=== PATIENT | male | born 1980 | race Caucasian/White ===

== ENCOUNTER 2017-10-07 01:12 | Emergency (ER) | payer SELFPAY ==
[~2017-10-07] VITALS: Ht 193 cm; Wt 95.4 kg
[2017-10-07 01:12] VITALS: Ht 193 cm; Wt 95.4 kg
--- NOTE | 2017-10-07 01:56 | EMERGENCY ROOM VISIT NOTE ---
History First contact with patient: 01:07 Chief Complaint: ALCOHOL OVERDOSE Stated Complaint: ALCOHOL OVERDOSE Nursing Triage Summary: Pt arrived via [facility] from [facility] outside of [facility]. Per EMS, pt found attempting to get into stranger's car by PD. EMS called and pt admitted to drinking approximately 6 mixed drinks. Denies drug use. Denies trauma. 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 Denies having any friends that could pick him up. History of Present Illness The patient is a 37 year old male who presents to the Emergency Room via S for evaluation of alcohol overdose. History is obtained both from the patient and EMS. [facility]. The patient admits to drinking 6 mixed drinks tonight. He denies any drug use or trauma. 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 He denies any complaints at this time. He denies medical problems. Review of Systems A complete 10 point review of systems was reviewed with the patient with pertinent positives and negatives as per history of present illness. All else were negative. Past Medical/Surgical History Medical Problems: (1) No significant active problems Social History Smoking Status: Light Tobacco Smoker Alcohol Use: occasionally Housing Status: lives alone Occupation Status: [employer] student Current/Historical Medications No Active Prescriptions or Reported Meds Physical Exam Vital Signs Date Time Temp Pulse Resp B/P (MAP) Pulse Ox O2 Delivery O2 Flow Rate FiO2 10/07/17 09:21 36.7 96 14 138/62 96 10/07/17 09:01 138/62 10/07/17 08:36 96 14 96 10/07/17 08:31 118/72 10/07/17 08:06 92 16 96 10/07/17 08:01 108/65 10/07/17 07:36 95 17 96 10/07/17 07:31 119/70 10/07/17 07:06 100 16 97 10/07/17 07:01 137/80 10/07/17 06:36 100 11 96 10/07/17 06:31 112/62 10/07/17 06:21 95 14 96 10/07/17 06:16 92 13 96 10/07/17 06:02 94 10/07/17 06:01 103/60 10/07/17 05:46 93 16 95 10/07/17 05:41 92 16 95 10/07/17 05:31 95/57 10/07/17 05:17 110/66 10/07/17 05:11 94 17 95 10/07/17 04:41 112 18 96 10/07/17 04:36 110 19 95 10/07/17 04:31 92/60 10/07/17 04:27 103 17 95 10/07/17 04:01 90/54 10/07/17 03:57 98 16 94 10/07/17 03:52 100/53 10/07/17 03:47 99 16 93 10/07/17 03:17 103 16 94 10/07/17 03:01 119/60 10/07/17 02:47 104 17 87 10/07/17 02:42 108 22 115/62 95 10/07/17 02:32 10/07/17 02:21 97 Room Air 10/07/17 02:19 157 10/07/17 02:15 183/82 10/07/17 01:12 36.7 135 16 153/94 100 Room Air Physical Exam VITALS: Vitals are noted on the nurse's note and reviewed by myself. Vital signs stable. GENERAL: This is a 37-year-old male, sitting up in bed, appears to be visibly intoxicated, smells of ETOH. SKIN: The skin was without erythema, edema, or bruising. HEAD: Normocephalic atraumatic. EARS: External auditory canals clear. No hemotympanum. EYES: Pupils equal round and reactive to light and accommodation. NOSE: No deformities noted. MOUTH: No loose or chipped teeth. NECK: No cervical spine tenderness. HEART: Regular rate and rhythm without murmurs gallops or rubs. LUNGS: Clear to auscultation bilaterally without wheezes, rales or rhonchi. ABDOMEN: Soft, nontender. MUSCULOSKELETAL: Full range of motion throughout. Strength intact throughout. NEURO: Patient was alert and oriented to person place and time. Speech slurred. Gross sensation intact. Patient cooperative with examiner. Medical Decision & Procedures Laboratory Results 10/07/17 01:34 Test 10/07/17 01:34 Anion Gap 6.0 mmol/L (3-11) Est Creatinine Clear Calc Drug Dose 105.4 ml/min Estimated GFR () 90.3 Estimated GFR (Non- 77.9 BUN/Creatinine Ratio 12.7 (10-20) Calcium Level 9.1 mg/dl (8.5-10.1) Ethyl Alcohol mg/dL 328.0 mg/dl (0-3) Medications Administered Medications (Trade) Dose Ordered Sig/Gavino Route Start Time Stop Time Status Last Admin Dose Admin Haloperidol Lactate (Haldol Inj) 10 mg NOW STAT IM 10/07/17 02:16 10/07/17 02:18 DC 10/07/17 02:27 10 MG Lorazepam (Ativan Inj) 2 mg NOW STAT IM 10/07/17 02:16 10/07/17 02:18 DC 10/07/17 02:27 2 MG ED Course The patient was evaluated as above. Labs were drawn. The patient initially was alert and cooperative. He was allowed to sit up in bed. The patient then started escalating his behavior. He was changed into a diaper and pronated on the bed. I was alerted by nursing staff that the patient was harassing one of the nurses. Security was called to the room. I evaluated the patient at this time. He is screaming repeatedly and thrashing around in the bed. Verbal deescalation was unsuccessful. I became concerned that the patient could cause harm to himself or staff. 10 mg Haldol and 2 mg Ativan IM were ordered. The patient was placed in leather restraints for safety of himself and nursing staff. Medical Decision Differential diagnosis includes alcohol intoxication, drug use, infection, hypoglycemia, head trauma, among others. The patient is a 37-year-old male who presents today for evaluation of probable alcohol intoxication. Labs revealed an alcohol of 328. Kidney function was found to be within normal limits. Labs were otherwise unremarkable. There is no evidence of head trauma or infection on exam. Clinically the patient is significantly intoxicated. He initially was cooperative, however his behavior quickly escalated. He was shouting inappropriate things at staff and was uncooperative. Please see nursing documentation regarding specific behavior. There was concern for safety of the patient and staff, prompting chemical and physical restraints. The patient was monitored closely for several hours. When he was awake and more sober, he was discharged home with a sober friend. Medication Reconcilliation Current Medication List: was personally reviewed by me Blood Pressure Screening Patient's blood pressure: Normal blood pressure Impression Primary Impression: Alcoholic intoxication Critical Care I have personally spent greater than 35 minutes of critical care time in the direct management of this patient. This includes bedside care, interpretation of diagnostic studies, and testing, discussion with consultants, patient, and family members, and other required patient management activities. This 35 minutes is in excess of all separately billable procedures. Departure Information Dispostion Home / Self-Care Condition GOOD Prescriptions No Active Prescriptions or Reported Meds Referrals No Doctor, Assigned (PCP) Patient Instructions My [facility] Additional Instructions You were evaluated in emergency department for intoxication. You had a blood alcohol level that was significantly elevated. Over the next 24 hours keep well hydrated and eat light meals. Don't drink any more alcohol. If the Police were involved you may be cited for public intoxication. Please contact either [facility] Police or the [employer] Police for further information. As with any visit to the emergency department, you should follow up with your primary care provider or [facility] for reevaluation. Call 911 or return to Emergency Department if you develop: Passing out, difficulty breathing, many episodes of vomiting, blood in vomit or stool, abdominal pain, fevers, or other severe symptoms. We are always here to help if you feel you need further evaluation or treatment. Problem Qualifiers Primary Impression: Alcoholic intoxication Complication of substance-induced condition: uncomplicated Qualified Codes: F10.920 - Alcohol use, unspecified with intoxication, uncomplicated
[2017-10-07 02:08] LABS: CALCIUM 9.1 mg/dl (8.5-10.1); CREATININE 1.2 mg/dl (0.60-1.40)
[2017-10-07] MEDS ORDERED: LORAZEPAM 2 MG/ML 1 ML VIAL IM STA (02:16)
[2017-10-07] MEDS ORDERED: HALOPERIDOL LACTATE 5 MG/ML 1 ML VIAL IM STA (02:16)
[2017-10-07] MEDS ORDERED: LORAZEPAM 2 MG/ML 1 ML VIAL ONE (02:16)
[2017-10-07] MEDS ORDERED: HALOPERIDOL LACTATE 5 MG/ML 1 ML VIAL ONE (02:17)
[2017-10-07 02:21] VITALS: O2SAT 97
[2017-10-07 09:21] VITALS: BP 138/62; PULSE 96; TEMP 36.7; O2SAT 96
== END 2017-10-07 09:23 | disposition home or self-care (01) ==
LOC: EDBD 01:12 → C.EDB 01:15
DX: F10.920 Alcohol use, unspecified with intoxication, uncomplicated (principal); Y90.8 Blood alcohol level of 240 mg/100 ml or more; F17.200 Nicotine dependence, unspecified, uncomplicated

== ENCOUNTER 2020-11-26 17:15 | Inpatient (IN) ==
[2020-11-26 18:05] LABS: Appearance Urine Clear (Clear); Bacteria Urine Automated Negative (Negative); Bilirubin Urine Negative (Negative); Blood Urine Negative (Negative); Cast Urine Automated 0 /lpf (0-5); Color Urine Yellow; Epithelial Cell Urine Auto 0-5 /lpf (0-5); Glucose Urine UA Negative (Negative); Ketones Urine Negative (Negative); Leukocyte Esterase Urine Trace (Negative); Nitrite Urine Negative (Negative); Protein Urine Negative (Negative); RBC Urine Automated 0-4 /hpf (0-4); Urobilinogen Urine Negative (Negative)
[2020-11-26 18:07] LABS: Amphetamines+Metham, Urine Neg (Neg); Barbiturates, Urine Neg (Neg); Benzodiazepine, Urine Neg (Neg); Cocaine, Urine Neg (Neg); MDMA (Ecstacy), Urine Neg (Neg); Methadone, Urine Neg (Neg); Opiate, Urine Neg (Neg); Phencyclidine, Urine Neg (Neg)
[2020-11-26 18:11] LABS: Basophils # (auto) 0.02 K/uL (0-0.2); Basophils % (auto) 0.4 %; Eosinophils # (auto) 0.01 K/uL (0-0.5); Eosinophils % (auto) 0.2 %; Hematocrit (blood only) 44.3 % (42-52); Hemoglobin 16.1 g/dL (14.0-18.0); Lymphocytes # (auto) 2.29 K/uL (1.2-3.4); Lymphocytes % (auto) 40.9 %; Mean Corpuscular Hemoglobin 29.8 pg (25-34); Mean Corpuscular Hgb Conc 36.3 g/dL (32-36); Mean Corpuscular Volume 81.9 fL (80-100); Mean Platelet Volume 8.9 fL (7.4-10.4); Monocytes % (auto) 10.7 %; Neutrophils # (auto) 2.68 K/uL (1.4-6.5); Neutrophils % (auto) 47.8 %; Platelet Count 167 K/uL (130-400); RDW Coefficient of Variation 13.4 % (11.5-14.5); RDW Standard Deviation 39.6 fL (36.4-46.3); Red Blood Count 5.41 M/uL (4.7-6.1)
[2020-11-26 18:29] LABS: Acetaminophen < 2 ug/ml (10-30); Albumin Level 4.1 gm/dl (3.4-5.0); BUN Creatinine Ratio 8.4 (10-20); Calcium 8.3 mg/dl (8.5-10.1); Creatinine Clr Calc Pharmacy 114.5 ml/min; Potassium 3.7 mmol/L (3.5-5.1); Salicylate < 1.7 mg/dl (2.8-20)
[2020-11-26 18:40] LABS: Albumin Globulin Ratio 1.3 (0.9-2); Bilirubin,Total 0.6 mg/dl (0.2-1); Globulin 3.2 gm/dl (2.5-4.0); Thyroid Stimulating Hormone 1.14 uIu/ml (0.300-4.500); Total Protein 7.3 gm/dl (6.4-8.2)
[2020-11-26] MEDS ORDERED: MULTI-VITAMIN INFUSION 10 ML, THIAMINE HCL 100 MG, FOLIC ACID 1 MG in SODIUM CHLORIDE 0... IV ONE (18:41)
[2020-11-26] MEDS ORDERED: LORazepam 2 MG/4 ML VIAL IV STA (18:41)
[2020-11-26] MEDS ORDERED: ONDANSETRON INJ 2 MG/ML 2 ML VIAL IV STA (18:43)
[2020-11-26] MEDS ORDERED: FAMOTIDINE 20MG IV PUSH 20 MG/5 ML SYR IV STA (18:43)
[2020-11-26 18:51] LABS: Magnesium 2.5 mg/dl (1.8-2.4)
[2020-11-26 20:20] LABS: Influenza A virus by PCR Negative (Neg); Influenza B virus by PCR Negative (Neg); RSV by PCR Negative (Neg); SARS CoV2 RNA(COVID-19) InHosp NEGATIVE (Negative)
[2020-11-26 22:00] LABS: Uric Acid 7.6 mg/dl (2.6-7.2)
--- NOTE | 2020-11-26 22:17 | Emergency Department Note ---
Impression & Plan Suicidal ideation, Alcohol intoxication, Elevated uric acid in blood, Gout of right ankle ED Provider Note NAME: JENNI CHOW AGE: 40 SEX: M ARRIVES VIA: Ambulance INFORMANT: Patient, ED PROVIDER(S): Nas Galan MD CHIEF COMPLAINT: Suicidal ideation, alcohol intoxication. PLAN: Disposition: MEDICAL DECISION MAKING: The patient is a 40-year-old gentleman with a past medical history of anxiety, depression, alcohol abuse/dependence who presents to the emergency department for evaluation of suicidal ideation after he presents to the [facility] attempting to be admitted for increased thoughts of SI with plan to "cut his jugular" because he knows that would be the quick way to . He reports to us that he presents to the [facility] for admission voluntarily after his girlfriend urged him to do so however upon case management discussing with the girlfriend she reports that he told her that he wanted to go there because of his worsening suicidal ideation. Patient reports he drinks a liter of vodka daily and does have a history of alcohol withdrawal. He reports he last drank yesterday evening. He reports he is will to be admitted voluntarily for suicidal ideation and acknowledges he needs some help because if he does not get help he will . On arrival the patient is anxious appearing with mild restlessness without any overt tremors. Otherwise he has no focal neurologic deficits. No clonus. He does have mild swelling of the medial malleolus of his right ankle without any overt deformity. He is unclear of how this may have happened and denies any falls or twisting of his ankle. He denies any history of gout. WBC, H/H and platelets within normal limits. Chemistry without metabolic acidosis. Electrolytes are unremarkable. LFTs slightly elevated at 74 and 117, respectively for AST and ALT. Total bilirubin within normal limits. Usage within normal limits. UA without evidence of infection. Drug screen unremar kable. Blood alcohol was 336 at 1800. Plain film of the right ankle without overt evidence of fracture per my preliminary review. However uric acid was performed and is slightly elevated at 7.6. Thus, given the patient's chronic alcohol use findings are suspicious for possible gout. Given the patient's blood alcohol level will need to allow to metabolize to complete psychiatric evaluation. Patient was placed on every 2 hour AWSS monitoring for alcohol withdrawal symptoms. If he begins to experience withdrawal he may require medical admission prior to psychiatric evaluation. Patient was signed out to Dr. Kirkpatrick at change of shift with plan to reevaluate in the morning for clinical sobriety and reassessment of suicidal ideation. Triage Nursing notes reviewed and agree them. Prior medical records reviewed Vital Signs: reviewed and remarkable for no significant abnormalities Differential diagnosis: Mood disorder, infection, hypoglycemia, electrolyte abnormalities, cardiac sources, intracerebral event, toxicologic, trauma, neurologic, as well as other pathologies. ER treatment provided: See below. Diagnostics interpreted by me: Cardiac Monitoring: An order for continuous cardiac monitoring was placed and demonstrated NSR, 99 bpm, no ectopy. Laboratory studies: See below Imaging studies: Right ankle XR: No overt fracture or dislocation, per my preliminary review. HPI: The patient is a 40-year-old gentleman with a past medical history of anxiety, depression, alcohol abuse/dependence who presents to the emergency department for evaluation of suicidal ideation after he presents to the [facility] attempting to be admitted for increased thoughts of SI with plan to "cut his jugular" because he knows that would be the quick way to . He reports to us that he presents to the [facility] for admission voluntarily after his girlfriend urged him to do so however upon case management discussing with the girlfriend she reports that he told her that he wanted to go there because of his worsening suicidal ideation. Patient reports he drinks a liter of vodka daily and does have a history of alcohol withdrawal. He reports he last drank yesterday evening. He reports he is will to be admitted voluntarily for suicidal ideation and acknowledges he needs some help because if he does not get help he will . ROS: See above HPI for pertinent positives & negatives. A total of 10 systems reviewed and were otherwise negative. PAST MEDICAL HISTORY:See Below PAST SURGICAL HISTORY:See Below FAMILY HISTORY:See Below SOCIAL HISTORY:See Below HOME MEDICATIONS:See Below ALLERGIES:See Below VITALS:See Below PHYSICAL EXAMINATION: GENERAL: Awake, alert, intoxicated/anxious/restless-appearing, in no distress HENT: Normocephalic, atraumatic. Oropharynx unremarkable. EYES: Normal conjunctiva. Sclera non-icteric. EOMI. No nystamgus. PEARRL. NECK: Supple. No nuchal rigidity. FROM. No JVD. RESPIRATORY: Clear to auscultation. CARDIAC: Regular rate, normal rhythm. Extremities warm and well perfused. Pulses equal. ABDOMEN: Soft, non-distended. No tenderness to palpation. No rebound or guarding. No masses. RECTAL: Deferred. MUSCULOSKELETAL: Chest examination reveals no tenderness. The back is sym metrical on inspection without obvious abnormality. There is no CVA tenderness to palpation. Mild edema, erythema warmth and tenderness of the right ankle medial malleolus. There is no gross deformity. Forage motion intact. Distal PMS intact. LOWER EXTREMITIES: Calves are equal size bilaterally and non-tender. No edema. No discoloration. NEURO: No focal sensory or motor deficits noted. DTRs wnl. No clonus. SKIN: No rash or jaundice noted. Nas Galan MD Past Med/Surg History Medical History Alcohol abuse Depression History of suicide attempt Suicidal ideation Social History Smoking Status: Never smoker Preferred Language: Uzbek Allergies Allergies Allergy/AdvReac Type Severity Reaction Status Date / Time No Known Allergies Allergy Unverified 11/26/20 18:03 Home Meds Home Medications Medication Instructions Recorded Confirmed alprazolam [Xanax] 0.25 mg PO HS PRN 11/26/20 11/26/20 bupropion HCl 300 mg PO QAM 11/26/20 11/26/20 buspirone 15 mg PO BID 11/26/20 11/26/20 Previous Rx's Medication Instructions Recorded prednisone 60 mg PO DAILY 5 Days #15 tab 11/26/20 Results & Data (ED) Vital Signs Vital Signs - 24 hr 11/26/20 17:23 11/26/20 19:13 11/26/20 21:01 Temperature 37.1 C Temperature Source Oral Pulse Rate 124 H Pulse Rate [Finger] 117 H 107 H Pulse Rhythm Regular Pulse Rhythm [Finger] Pulse Strength Normal Pulse Strength [Finger] Respiratory Rate 16 18 18 Respiratory Effort / Characteristics Non-Labored Respiratory Depth Normal Normal Respiratory Pattern Regular Blood Pressure 170/122 H Blood Pressure [Left Arm] 132/87 138/72 Blood Pressure Mean 138 Blood Pressure Mean [Left Arm] 102 94 Blood Pressure Position Sitting Blood Pressure Position [Left Arm] Pulse Oximetry 98 99 99 Oxygen Delivery Method Room Air Room Air Sepsis Recent Fever Within 48 Hours No Sepsis New/Unexplained Change in Mental Status N/A Sepsis Action Taken by Nursing No Action Required 11/26/20 23:00 11/27/20 00:10 11/27/20 01:00 Temperature Temperature Source Pulse Rate Pulse Rate [Finger] 99 H 99 H 108 H Pulse Rhythm Pulse Rhythm [Finger] Regular Regular Regular Pulse Strength Pulse Strength [Finger] Normal Normal Normal Respiratory Rate 20 18 18 Respiratory Effort / Characteristics Non-Labored Spontaneous Non-Labored Spontaneous Non-Labored Spontaneous Respiratory Depth Normal Normal Normal Respiratory Pattern Regular Regular Regular Blood Pressure Blood Pressure [Left Arm] 143/95 H 106/71 118/77 Blood Pressure Mean Blood Pressure Mean [Left Arm] 111 82 90 Blood Pressure Position Blood Pressure Position [Left Arm] Lying Lying Lying Pulse Oximetry 98 97 98 Oxygen Delivery Method Room Air Room Air Room Air Sepsis Recent Fever Within 48 Hours Sepsis New/Unexplained Change in Mental Status Sepsis Action Taken by Nursing 11/27/20 02:00 Temperature Temperature Source Pulse Rate Pulse Rate [Finger] 91 H Pulse Rhythm Pulse Rhythm [Finger] Regular Pulse Strength Pulse Strength [Finger] Normal Respiratory Rate 18 Respiratory Effort / Characteristics Non-Labored Spontaneous Respiratory Depth Normal Respiratory Pattern Regular Blood Pressure Blood Pressure [Left Arm] 143/69 H Blood Pressure Mean Blood Pressure Mean [Left Arm] 93 Blood Pressure Position Blood Pressure Position [Left Arm] Lying Pulse Oximetry 96 Oxygen Delivery Method Room Air Sepsis Recent Fever Within 48 Hours Sepsis New/Unexplained Change in Mental Status Sepsis Action Taken by Nursing Laboratory Data Attestation: I reviewed the patient's lab results. Result diagrams: 11/26/20 17:57 11/26/20 17:57 Lab Results 11/26/20 11/26/20 11/26/20 Range/Units 17:37 17:37 17:57 WBC 5.60 (4.8-10.8) K/uL RBC 5.41 (4.7-6.1) M/uL Hgb 16.1 (14.0-18.0) g/dL Hct 44.3 (42-52) % MCV 81.9 (80-100) fL MCH 29.8 (25-34) pg MCHC 36.3 H (32-36) g/dL RDW Std Deviation 39.6 (36.4-46.3) fL RDW Coeff of Francois 13.4 (11.5-14.5) % Plt Count 167 (130-400) K/uL MPV 8.9 (7.4-10.4) fL Immature Gran % (Auto) 0.0 % Neut % (Auto) 47.8 % Lymph % (Auto) 40.9 % [place]roy[place] % (Auto) 10.7 % Eos % (Auto) 0.2 % Baso % (Auto) 0.4 % Neut # (Auto) 2.68 (1.4-6.5) K/uL Lymph # (Auto) 2.29 (1.2-3.4) K/uL [place] # (Auto) 0.60 H (0.11-0.59) K/uL Eos # (Auto) 0.01 (0-0.5) K/uL Baso # (Auto) 0.02 (0-0.2) K/uL Immature Gran # (Auto) 0.00 (0.00-0.02) K/uL Sodium (136-145) mmol/L Potassium (3.5-5.1) mmol/L Chloride (98-107) mmol/L Carbon Dioxide (21-32) mmol/L Anion Gap (3-11) BUN (7-18) mg/dl Creatinine (0.6-1.4) mg/dl Est Cr Clr Drug Dosing ml/min Est GFR ( Amer) Est GFR (Non-Af Amer) BUN/Creatinine Ratio (10-20) Glucose (70-99) mg/dl Uric Acid (2.6-7.2) mg/dl Calcium (8.5-10.1) mg/dl Magnesium (1.8-2.4) mg/dl Total Bilirubin (0.2-1) mg/dl AST (15-37) U/L ALT (12-78) U/L Alkaline Phosphatase (45-117) U/L Total Protein (6.4-8.2) gm/dl Albumin (3.4-5.0) gm/dl Globulin (2.5-4.0) gm/dl Albumin/Globulin Ratio (0.9-2) TSH (0.300-4.500) uIu/ml Urine Color Yellow Urine Appearance Clear (Clear) Urine pH 8.0 H (4.5-7.5) Ur Specific [place] 1.020 (1.000-1.030) Urine Protein Negative (Negative) Urine Glucose (UA) Negative (Negative) Urine Ketones Negative (Negative) Urine Blood Negative (Negative) Urine Nitrite Negative (Negative) Urine Bilirubin Negative (Negative) Urine Urobilinogen Negative (Negative) Ur Leukocyte Esterase Trace H (Negative) Urine WBC (Auto) 1-5 (0-5) /hpf Urine RBC (Auto) 0-4 (0-4) /hpf U Hyaline Cast (Auto) 0 (0-5) /lpf U Epithel Cells (Auto) 0-5 (0-5) /lpf Urine Bacteria (Auto) Negative (Negative) Salicylates (2.8-20) mg/dl Urine Opiates Screen Neg (Neg) Ur Methadone, Qual Neg (Neg) Acetaminophen (10-30) ug/ml Urine Barbiturates Neg (Neg) Ur Phencyclidine (PCP) Neg (Neg) U Amphetamin/Meth Scrn Neg (Neg) MDMA (Ecstasy) Screen Neg (Neg) U Benzodiazepines Scrn Neg (Neg) Ur Cocaine Metabolite Neg (Neg) U Marijuana (THC) Screen Neg (Neg) Ethyl Alcohol mg/dL (0-3) mg/dl COVID-19 Eval Order SARS-CoV-2 (PCR) (Negative) Influenza Type A (PCR) (Neg) Influenza Type B (PCR) (Neg) RSV (RT-PCR) (Neg) 11/26/20 11/26/20 11/26/20 Range/Units 17:57 17:57 17:57 WBC (4.8-10.8) K/uL RBC (4.7-6.1) M/uL Hgb (14.0-18.0) g/dL Hct (42-52) % MCV (80-100) fL MCH (25-34) pg MCHC (32-36) g/dL RDW Std Deviation (36.4-46.3) fL RDW Coeff of Francois (11.5-14.5) % Plt Count (130-400) K/uL MPV (7.4-10.4) fL Immature Gran % (Auto) % Neut % (Auto) % Lymph % (Auto) % [place] % (Auto) % Eos % (Auto) % Baso % (Auto) % Neut # (Auto) (1.4-6.5) K/uL Lymph # (Auto) (1.2-3.4) K/uL [place] # (Auto) (0.11-0.59) K/uL Eos # (Auto) (0-0.5) K/uL Baso # (Auto) (0-0.2) K/uL Immature Gran # (Auto) (0.00-0.02) K/uL Sodium 140 (136-145) mmol/L Potassium 3.7 (3.5-5.1) mmol/L Chloride 107 (98-107) mmol/L Carbon Dioxide 22 (21-32) mmol/L Anion Gap 11.0 (3-11) BUN 10 (7-18) mg/dl Creatinine 1.13 (0.6-1.4) mg/dl Est Cr Clr Drug Dosing 114.5 ml/min Est GFR ( Amer) 95.0 Est GFR (Non-Af Amer) 82.0 BUN/Creatinine Ratio 8.4 L (10-20) Glucose 137 H (70-99) mg/dl Uric Acid 7.6 H (2.6-7.2) mg/dl Calcium 8.3 L (8.5-10.1) mg/dl Magnesium 2.5 H (1.8-2.4) mg/dl Total Bilirubin 0.6 (0.2-1) mg/dl AST 74 H (15-37) U/L ALT 117 H (12-78) U/L Alkaline Phosphatase 84 (45-117) U/L Total Protein 7.3 (6.4-8.2) gm/dl Albumin 4.1 (3.4-5.0) gm/dl Globulin 3.2 (2.5-4.0) gm/dl Albumin/Globulin Ratio 1.3 (0.9-2) TSH 1.140 (0.300-4.500) uIu/ml Urine Color Urine Appearance (Clear) Urine pH (4.5-7.5) Ur Specific [place] (1.000-1.030) Urine Protein (Negative) Urine Glucose (UA) (Negative) Urine Ketones (Negative) Urine Blood (Negative) Urine Nitrite (Negative) Urine Bilirubin (Negative) Urine Urobilinogen (Negative) Ur Leukocyte Esterase (Negative) Urine WBC (Auto) (0-5) /hpf Urine RBC (Auto) (0-4) /hpf U Hyaline Cast (Auto) (0-5) /lpf U Epithel Cells (Auto) (0-5) /lpf Urine Bacteria (Auto) (Negative) Salicylates < 1.7 L (2.8-20) mg/dl Urine Opiates Screen (Neg) Ur Methadone, Qual (Neg) Acetaminophen < 2 L (10-30) ug/ml Urine Barbiturates (Neg) Ur Phencyclidine (PCP) (Neg) U Amphetamin/Meth Scrn (Neg) MDMA (Ecstasy) Screen (Neg) U Benzodiazepines Scrn (Neg) Ur Cocaine Metabolite (Neg) U Marijuana (THC) Screen (Neg) Ethyl Alcohol mg/dL 336.0 H (0-3) mg/dl COVID-19 Eval Order SARS-CoV-2 (PCR) (Negative) Influenza Type A (PCR) (Neg) Influenza Type B (PCR) (Neg) RSV (RT-PCR) (Neg) 11/26/20 11/26/20 Range/Units 19:17 19:17 WBC (4.8-10.8) K/uL RBC (4.7-6.1) M/uL Hgb (14.0-18.0) g/dL Hct (42-52) % MCV (80-100) fL MCH (25-34) pg MCHC (32-36) g/dL RDW Std Deviation (36.4-46.3) fL RDW Coeff of Francois (11.5-14.5) % Plt Count (130-400) K/uL MPV (7.4-10.4) fL Immature Gran % (Auto) % Neut % (Auto) % Lymph % (Auto) % [place] % (Auto) % Eos % (Auto) % Baso % (Auto) % Neut # (Auto) (1.4-6.5) K/uL Lymph # (Auto) (1.2-3.4) K/uL [place] # (Auto) (0.11-0.59) K/uL Eos # (Auto) (0-0.5) K/uL Baso # (Auto) (0-0.2) K/uL Immature Gran # (Auto) (0.00-0.02) K/uL Sodium (136-145) mmol/L Potassium (3.5-5.1) mmol/L Chloride (98-107) mmol/L Carbon Dioxide (21-32) mmol/L Anion Gap (3-11) BUN (7-18) mg/dl Creatinine (0.6-1.4) mg/dl Est Cr Clr Drug Dosing ml/min Est GFR ( Amer) Est GFR (Non-Af Amer) BUN/Creatinine Ratio (10-20) Glucose (70-99) mg/dl Uric Acid (2.6-7.2) mg/dl Calcium (8.5-10.1) mg/dl Magnesium (1.8-2.4) mg/dl Total Bilirubin (0.2-1) mg/dl AST (15-37) U/L ALT (12-78) U/L Alkaline Phosphatase (45-117) U/L Total Protein (6.4-8.2) gm/dl Albumin (3.4-5.0) gm/dl Globulin (2.5-4.0) gm/dl Albumin/Globulin Ratio (0.9-2) TSH (0.300-4.500) uIu/ml Urine Color Urine Appearance (Clear) Urine pH (4.5-7.5) Ur Specific [place] (1.000-1.030) Urine Protein (Negative) Urine Glucose (UA) (Negative) Urine Ketones (Negative) Urine Blood (Negative) Urine Nitrite (Negative) Urine Bilirubin (Negative) Urine Urobilinogen (Negative) Ur Leukocyte Esterase (Negative) Urine WBC (Auto) (0-5) /hpf Urine RBC (Auto) (0-4) /hpf U Hyaline Cast (Auto) (0-5) /lpf U Epithel Cells (Auto) (0-5) /lpf Urine Bacteria (Auto) (Negative) Salicylates (2.8-20) mg/dl Urine Opiates Screen (Neg) Ur Methadone, Qual (Neg) Acetaminophen (10-30) ug/ml Urine Barbiturates (Neg) Ur Phencyclidine (PCP) (Neg) U Amphetamin/Meth Scrn (Neg) MDMA (Ecstasy) Screen (Neg) U Benzodiazepines Scrn (Neg) Ur Cocaine Metabolite (Neg) U Marijuana (THC) Screen (Neg) Ethyl Alcohol mg/dL (0-3) mg/dl COVID-19 Eval Order CovFluRsv at [facility] SARS-CoV-2 (PCR) NEGATIVE (Negative) Influenza Type A (PCR) Negative (Neg) Influenza Type B (PCR) Negative (Neg) RSV (RT-PCR) Negative (Neg) Administered Medications Discontinued Medications Dexamethasone Sodium Phosphate (DexamethasonePf 10 Mg/Ml Vial) 10 mg IV NOW ONE Stop: 11/26/20 22:25 Last Admin: 11/26/20 22:41 Dose: 10 mg Documented by: [id number] Multivitamins 10 ml/ Thiamine HCl 100 mg/ Folic Acid 1 mg/Sodium Chloride 1,011.2 mls @ 1,011.2 mls/hr IV .Q1H ONE Stop: 11/26/20 19:40 Last Infusion: 11/26/20 21:09 Dose: 1,011.2 mls/hr Documented by: [id number] Admin: 11/26/20 20:05 Dose: 1,011.2 mls/hr Documented by: [id number] Lorazepam (Ativan) 2 mg in 4 mls @ 4 mls/min IV NOW STA Stop: 11/26/20 18:42 Last Admin: 11/26/20 19:22 Dose: 4 mls/min Documented by: [id number] Famotidine (Pepcid 20mg Iv Push) 20 mg in 5 mls @ 2.5 mls/min IV NOW STA Stop: 11/26/20 18:44 Last Admin: 11/26/20 19:22 Dose: 2.5 mls/min Documented by: [id number] Lorazepam (Lorazepam 1 Mg Tab) 1 mg SL NOW STA Stop: 11/26/20 22:36 Last Admin: 11/26/20 22:42 Dose: 1 mg Documented by: [id number] Ondansetron HCl (Ondansetron Inj 2 Mg/Ml 2 Ml Vial) 4 mg IV NOW STA Stop: 11/26/20 18:44 Last Admin: 11/26/20 19:22 Dose: 4 mg Documented by: [id number] Discharge Plan Visit Data Chief Complaint: Mental Health Evaluation Stated Complaint: MHID, ETOH ED Provider: Ana Kirkpatrick Discharge Problem: Suicidal ideation, Alcohol intoxication, Elevated uric acid in blood, Gout of right ankle Discharge Instructions Krames/Other Patient Handouts: ED Alcohol Withdrawal, ED Depression, ED Alcohol Intoxication, ED Gout Forms Stand Alone Forms: [facility], Suicide Prevention Resources Prescriptions Prescriptions: New prednisone 20 mg tablet 60 mg PO DAILY 5 Days Qty: 15 RF: 0 No Action alprazolam [Xanax] 0.25 mg Tablet 0.25 mg PO HS PRN (Reason: Anxiety) RF: 0 bupropion HCl 300 mg Tablet Extended Release 24 Hr 300 mg PO QAM RF: 0 buspirone 15 mg Tablet 15 mg PO BID RF: 0 Referrals Referrals: PCP,NO [Primary Care Provider] - Discharge Problem: Alcohol intoxication Qualifiers: Complication of substance-induced condition: with unspecified complication Qualified Code(s): F10.929 - Alcohol use, unspecified with intoxication, un specified Gout of right ankle Qualifiers: Gout etiology: unspecified cause Chronicity: acute Qualified Code(s): M10.9 - Gout, unspecified
[2020-11-26] MEDS ORDERED: dexAMETHasone**PF** 10 MG/ML VIAL IV ONE (22:24)
[2020-11-26] MEDS ORDERED: LORazepam 1 MG TAB SL STA (22:35)
[2020-11-27] MEDS ORDERED: LORazepam 1 MG/2 ML VIAL IV STA (05:28)
--- NOTE | 2020-11-27 06:08 | Emergency Department Note ---
ED Visit Note I received this patient in signout at the change of shift from Dr. Pressley pending medical clearance. Patient was medically clear at approximately 4:00 AM based on his blood alcohol level. He did receive an additional dose of Ativan while awaiting his final disposition. Patient has been referred to [facility] for inpatient mental health treatment. Case has been signed out to Dr. Oswald at the change of shift awaiting final disposition. . : Alcohol intoxication Qualifiers: Complication of substance-induced condition: with unspecified complication Qualified Code(s): F10.929 - Alcohol use, unspecified with intoxication, unspeci fied Gout of right ankle Qualifiers: Gout etiology: unspecified cause Chronicity: acute Qualified Code(s): M10.9 - Gout, unspecified
--- NOTE | 2020-11-27 07:04 | XRay Report ---
XR ankle RT min 3V routine CLINICAL HISTORY: Right ankle pain and swelling. COMPARISON: None FINDINGS: Alignment of the right ankle is anatomic. There is no acute fracture. Talar dome is intact . Mild soft tissue swelling is noted. There is no osseous lesion. IMPRESSION: 1. No acute fracture. 2. Ankle soft tissue swelling. ACT 112: Negative or not required by law. Electronically signed by: Yung Escobar M.D. 11/27/2020 7:02 AM
[2020-11-27] MEDS ORDERED: buPROPion HCl 100 MG TABLET PO STA (07:44)
[2020-11-27] MEDS ORDERED: busPIRone 15 MG TAB PO STA (07:44)
[2020-11-27] MEDS ORDERED: LORazepam 1 MG TAB PO STA (07:45)
[2020-11-27] MEDS ORDERED: GABAPENTIN 600 MG TAB PO ONE (08:29)
[2020-11-27] MEDS ORDERED: GABAPENTIN 1200MG ALCOHOL WITHDRAWAL LOAD PO ONE (08:29)
--- NOTE | 2020-11-27 11:13 | Emergency Department Note ---
ED Visit Note I received this patient at change of shift signout from Dr. Kirkpatrick. Please see her note for initial history and physical exam. The patient was medically cleared prior to my arrival. The patient did have a very elevated alcohol level yesterday. He was observed overnight. The patient does have significant mental health issues and may require inpatient management. He was evaluated by the mental health heel caser in the emergency department. He was felt to be a good candidate for a 201 admission. The patient does have a strong alcohol history and presented to the emergency department with alcohol intoxication yesterday. I discussed the patient's condition with Dr. Reeder who is on for psychiatry. There was concern the patient may go through withdrawal given his past history. The patient was given Ativan earlier today but then started on Neurontin for possible withdrawal. After discussion with Dr. Reeder I do feel the patient would be a great candidate for inpatient management but with the concerns for withdrawal we will keep the patient in our department until after he is able to eat lunch has no nausea and his withdrawal scores remain acceptable. At that time he should be a good candidate to go to [facility]. I did sign the patient's 201. . : Alcohol intoxication Qualifiers: Complication of substance-induced condition: with unspecified complication Qualified Code(s): F10.929 - Alcohol use, unspecified with intoxication, unspecified Gout of right ankle Qualifiers: Gout etiology: unspecified cause Chronicity: acute Qualified Code(s): M10.9 - Gout, unspecified
[2020-11-27] MEDS ORDERED: MAGNESIUM HYDROXIDE SUSP 30 ML UDC PO PRN (11:22)
[2020-11-27] MEDS ORDERED: hydrOXYzine HCl 25 MG TAB PO PRN ×2 (11:22)
[2020-11-27] MEDS ORDERED: BISMUTH SUBSALICYLATE LIQD 236 ML PO PRN (11:22)
[2020-11-27] MEDS ORDERED: SODIUM CHLORIDE 0.65% NA SOLN 45 ML (OCEAN) PRN (11:22)
[2020-11-27] MEDS: LORazepam 1 MG TAB PO PRN ×2 (14:33→18:36)
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
[2020-11-27] MEDS: GABAPENTIN 600 MG TAB PO SCH ×2 (15:00→21:02)
[2020-11-27] MEDS: THIAMINE HCL 100 MG TAB PO SCH (15:28)
[2020-11-27] MEDS: FOLIC ACID 1 MG TAB PO SCH (15:28)
[2020-11-27] MEDS: ACETAMINOPHEN 325 MG TAB PO PRN (21:02)
[2020-11-27] MEDS: ALUMINUM/MAGNESIUM SUSP 30 ML UDC PO PRN (21:11)
[2020-11-28] MEDS: GABAPENTIN 600 MG TAB PO SCH ×3 (04:28→20:06)
[2020-11-28] MEDS: LORazepam 1 MG TAB PO PRN ×8 (06:34→20:57)
[2020-11-28] MEDS: buPROPion XL 150 MG TABCR PO SCH (08:37)
[2020-11-28] MEDS: THIAMINE HCL 100 MG TAB PO SCH (08:37)
[2020-11-28] MEDS: FOLIC ACID 1 MG TAB PO SCH (08:37)
--- NOTE | 2020-11-28 16:23 | Psychiatric Progress Note ---
Date of Service November 28, 2020 Impression / Recommendations (1) Depression: 11/28/20--patient will continue on a half dose of bupropion due to seizure risk as he is withdrawing from alcohol. We will continue to monitor mood. Patient will be down titrated on his bupropion as it is thought to be contributing significantly to his anxiety. Patient normally takes 300 mg p.o. every morning, will administer half dose 150 mg p.o. every morning starting tomorrow 11/28/2020 and assess further need. Patient will continue to stay on the inpatient psychiatric unit for safety, stabilization, medication management. (2) Alcohol use disorder: 11/28/20--Patient currently on ANA protocol. We will continue to monitor for signs and symptoms of withdrawal. 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 Review of Systems Sleep Information Total Hours of Sleep: 7.5 Meal Information Percent Meal Consumed - Breakfast: 100 Percent Meal Consumed - Lunch: 100 Percent Meal Consumed - Dinner: 0 Nutrition Comment: Patient not feeling well for dinner, crackers tolerated Subjective Subjective Patient was seen & assessed and interval progress reviewed with treatment team nursing and social work Patient continues to show signs of alcohol withdrawal and require as needed dosing of Ativan to combat this. Patient also continuing to show signs of depression. He isolates in his room and has only attended a small number of groups. Patient is eating his meals although appears to be doing a lot of sleeping during the day. Denies any acute complaints. No medication side effects observed or reported. Physical Exam Psychiatric Orientation: alert, oriented x 3, oriented to person, oriented to place, oriented to time and cooperative Apperance: appropriately groomed and appeared stated age Eye Contact: + fair eye contact Motor Behavior: + tremor Speech: normal rate/rhythm/volume of speech Affect: + anxious affect Mood: + depressed mood and + anxious mood Thought Process: goal directed thought process and + perseveration Thought Content: + hopelessness and + worthlessness Homicidal Thoughts: denies homicidal thoughts Cognition: remote memory grossly intact Estimated Intelligence: average estimated intelligence Insight: + fair insight Judgement: + poor judgement Vital Signs (Past 24 Hours) Last Vital Signs Temp 36.8 C 11/28/20 12:06 Pulse 112 H 11/28/20 14:00 Resp 16 11/28/20 12:06 BP 132/77 05/04/21 14:00 Pulse Ox 97 11/27/20 18:00 Results & Data ([facility]) Current Inpatient Medications Current Inpatient Medications: Current Inpatient Medications Acetaminophen (Acetaminophen 325 Mg Tab) 650 mg PO Q4H PRN PRN Reason: Headache or Minor Fever Stop: 12/27/20 11:21 Last Admin: 11/27/20 21:02 Dose: 650 mg Documented by: Al Hydrox/Mg Hydrox/Simethicone (Aluminum/Magnesium Susp 30 Ml Udc) 30 ml PO Q4H PRN PRN Reason: GI Upset Stop: 12/27/20 11:21 Last Admin: 11/27/20 21:11 Dose: 30 ml Documented by: Bismuth Subsalicylate (Bismuth Subsalicylate Liqd 236 Ml) 15 ml PO PRN PRN PRN Reason: Loose Stool Stop: 12/27/20 11:21 Bupropion HCl (Bupropion Xl 150 Mg Tabcr) 150 mg PO QAM [facility] Stop: 12/28/20 08:59 Last Admin: 11/28/20 08:37 Dose: 150 mg Documented by: Folic Acid (Folic Acid 1 Mg Tab) 1 mg PO QAM [facility] Stop: 12/27/20 14:29 Last Admin: 11/28/20 08:37 Dose: 1 mg Documented by: Gabapentin (Gabapentin 600 Mg Tab) 600 mg PO Q8H [facility] Stop: 11/28/20 20:30 Last Admin: 11/28/20 12:15 Dose: 600 mg Documented by: Gabapentin (Gabapentin 600 Mg Tab) 600 mg PO Q12H [facility] Stop: 11/29/20 20:30 Gabapentin (Gabapentin 600 Mg Tab) 600 mg PO Q24H [facility] Stop: 11/30/20 20:30 Hydroxyzine HCl (Hydroxyzine Hcl 25 Mg Tab) 50 mg PO HSZ PRN PRN Reason: Insomnia Stop: 12/27/20 11:21 Last Admin: 11/27/20 21:03 Dose: 50 mg Documented by: Hydroxyzine HCl (Hydroxyzine Hcl 25 Mg Tab) 25 mg PO Q4H PRN PRN Reason: Anxiety Stop: 12/27/20 11:21 Lorazepam (Lorazepam 1 Mg Tab) 1 - 3 mg PO UD PRN; Protocol PRN Reason: EtoH Withdrawal AWSS 6-10+ Stop: 12/27/20 14:17 Last Admin: 11/28/20 14:07 Dose: 1 mg Documented by: Magnesium Hydroxide (Magnesium Hydroxide Susp 30 Ml Udc) 30 ml PO DAILY PRN PRN Reason: Constipation Stop: 12/27/20 11:21 Sodium Chloride (Sodium Chloride 0.65% Na Soln 45 Ml ([address])) 1 - 2 sprays NA PRN PRN PRN Reason: Nasal Dryness/Congestion Stop: 12/27/20 11:21 Thiamine HCl (Thiamine Hcl 100 Mg Tab) 100 mg PO QAM [facility] Stop: 12/27/20 14:29 Last Admin: 11/28/20 08:37 Dose: 100 mg Documented by: Mental Health & Subst Abuse Tx Psychiatrist Date of Appointment with Psychiatrist: 12/01/20 Therapist Name of Therapist: Flor padilla [place] Refuse Driver Name of Nailer Operator: N/A Post Discharge Appointments Primary Care Physician Name Of Family Doctor: Rashard Rahman (1) Depression Depression Type: major depressive disorder Major depression recurrence: recurrent Active/Remission status: currently active Major depression episode severity: severe Psychotic features: without psychotic features Qualified Code(s): F33.2 - Major depressive disorder, recurrent severe without psychotic features
[2020-11-29] MEDS: buPROPion XL 150 MG TABCR PO SCH (09:27)
[2020-11-29] MEDS: GABAPENTIN 600 MG TAB PO SCH ×2 (09:27→20:53)
[2020-11-29] MEDS: THIAMINE HCL 100 MG TAB PO SCH (09:27)
[2020-11-29] MEDS: FOLIC ACID 1 MG TAB PO SCH (09:27)
[2020-11-29] MEDS: ACETAMINOPHEN 325 MG TAB PO PRN (11:51)
--- NOTE | 2020-11-29 13:36 | Psychiatric Progress Note ---
Date of Service November 29, 2020 Impression / Recommendations (1) Depression: 11/29/20--patient will continue on bupropion 150 mg p.o. every morning. We will also add Zoloft 50 mg nightly to his regimen to combat anxiety. Patient reports some improvement in his mood and is no longer endorsing suicidal ideation at this time. 11/28/20--patient will continue on a half dose of bupropion due to seizure risk as he is withdrawing from alcohol. We will continue to monitor mood. Patient will be down titrated on his bupropion as it is thought to be contributing significantly to his anxiety. Patient normally takes 300 mg p.o. every morning, will administer half dose 150 mg p.o. every morning starting tomorrow 11/28/2020 and assess further need. Patient will continue to stay on the inpatient psychiatric unit for safety, stabilization, medication management. (2) Alcohol use disorder: 11/29/20--patient continues on ANA protocol. Reports improvement of symptoms. 11/28/20--Patient currently on ANA protocol. We will continue to monitor for signs and symptoms of withdrawal. Protective Factors Assessment Employed: Yes () Interval History Chief Complaint "I am still anxious but thank you for everything". Review of Systems Sleep Information Total Hours of Sleep: 9.25 Meal Information Percent Meal Consumed - Breakfast: 100 Percent Meal Consumed - Lunch: 100 Percent Meal Consumed - Dinner: 100 Nutrition Comment: Patient not feeling well for dinner, crackers tolerated Subjective Subjective Patient was seen & assessed and interval progress reviewed with treatment team nursing and social work. Patient states that he is still experiencing some anxiety during the course of the day. He states that he has been trying to go to group but will often find himself isolating in his room. With regards to his mood patient sees some improvements and is more willing to joke with medical writer. He is denying any suicidal ideation at this time. Patient states that he is feeling much better now that he is sober from alcohol. He states he was experiencing withdrawal symptoms as recently as last night. He states that he feels that these have subsided at this time. Physical Exam Psychiatric Orientation: alert, oriented x 3, oriented to person, oriented to place, oriented to time and cooperative Apperance: appropriately groomed and appeared stated age Eye Contact: + fair eye contact Motor Behavior: + tremor Speech: normal rate/rhythm/volume of speech Affect: + anxious affect Mood: + depressed mood and + anxious mood Thought Process: goal directed thought process and + perseveration Thought Content: + hopelessness and + worthlessness Homicidal Thoughts: denies homicidal thoughts Cognition: remote memory grossly intact Estimated Intelligence: average estimated intelligence Insight: + fair insight Judgement: + poor judgement Vital Signs (Past 24 Hours) Last Vital Signs Temp 36.7 C 11/29/20 10:17 Pulse 114 H 11/29/20 10:17 Resp 16 11/29/20 10:17 BP 133/76 11/29/20 10:17 Pulse Ox 97 11/28/20 20:45 Results & Data ([facility]) Current Inpatient Medications Current Inpatient Medications: Current Inpatient Medications Acetaminophen (Acetaminophen 325 Mg Tab) 650 mg PO Q4H PRN PRN Reason: Headache or Minor Fever Stop: 12/27/20 11:21 Last Admin: 11/29/20 11:51 Dose: 650 mg Documented by: Al Hydrox/Mg Hydrox/Simethicone (Aluminum/Magnesium Susp 30 Ml Udc) 30 ml PO Q4H PRN PRN Reason: GI Upset Stop: 12/27/20 11:21 Last Admin: 11/27/20 21:11 Dose: 30 ml Documented by: Bismuth Subsalicylate (Bismuth Subsalicylate Liqd 236 Ml) 15 ml PO PRN PRN PRN Reason: Loose Stool Stop: 12/27/20 11:21 Bupropion HCl (Bupropion Xl 150 Mg Tabcr) 150 mg PO QAM [facility] Stop: 12/28/20 08:59 Last Admin: 11/29/20 09:27 Dose: 150 mg Documented by: Folic Acid (Folic Acid 1 Mg Tab) 1 mg PO QAM [facility] Stop: 12/27/20 14:29 Last Admin: 11/29/20 09:27 Dose: 1 mg Documented by: Gabapentin (Gabapentin 600 Mg Tab) 600 mg PO Q12H [facility] Stop: 11/29/20 20:30 Last Admin: 11/29/20 09:27 Dose: 600 mg Documented by: Gabapentin (Gabapentin 600 Mg Tab) 600 mg PO Q24H [facility] Stop: 11/30/20 20:30 Hydroxyzine HCl (Hydroxyzine Hcl 25 Mg Tab) 50 mg PO HSZ PRN PRN Reason: Insomnia Stop: 12/27/20 11:21 Last Admin: 11/27/20 21:03 Dose: 50 mg Documented by: Hydroxyzine HCl (Hydroxyzine Hcl 25 Mg Tab) 25 mg PO Q4H PRN PRN Reason: Anxiety Stop: 12/27/20 11:21 Lorazepam (Lorazepam 1 Mg Tab) 1 - 3 mg PO UD PRN; Protocol PRN Reason: EtoH Withdrawal AWSS 6-10+ Stop: 12/27/20 14:17 Last Admin: 11/28/20 20:57 Dose: 1 mg Documented by: Magnesium Hydroxide (Magnesium Hydroxide Susp 30 Ml Udc) 30 ml PO DAILY PRN PRN Reason: Constipation Stop: 12/27/20 11:21 Sertraline HCl (Sertraline Hcl 50 Mg Tablet) 50 mg PO HS [facility] Stop: 12/29/20 21:59 Sodium Chloride (Sodium Chloride 0.65% Na Soln 45 Ml ([place])) 1 - 2 sprays NA PRN PRN PRN Reason: Nasal Dryness/Congestion Stop: 12/27/20 11:21 Thiamine HCl (Thiamine Hcl 100 Mg Tab) 100 mg PO QAM [facility] Stop: 12/27/20 14:29 Last Admin: 11/29/20 09:27 Dose: 100 mg Documented by: Mental Health & Subst Abuse Tx Psychiatrist Date of Appointment with Psychiatrist: 12/01/20 Therapist Name of Therapist: Flor padilla [place] Director Of Education Name of Assurance Services Manager Health Care: N/A Post Discharge Appointments Primary Care Physician Name Of Family Doctor: Rashard Rahman (1) Depression Depression Type: major depressive disorder Major depression recurrence: recurrent Active/Remission status: currently active Major depression episode severity: severe Psychotic features: without psychotic features Qualified Code(s): F33.2 - Major depressive disorder, recurrent severe without psychotic features
[2020-11-29] MEDS: LORazepam 1 MG TAB PO PRN ×4 (15:35→22:10)
[2020-11-29] MEDS ORDERED: SERTRALINE HCL 50 MG TABLET PO SCH (22:00)
[2020-11-30] MEDS: buPROPion XL 150 MG TABCR PO SCH (09:06)
[2020-11-30] MEDS: THIAMINE HCL 100 MG TAB PO SCH (09:07)
[2020-11-30] MEDS: FOLIC ACID 1 MG TAB PO SCH (09:07)
[2020-11-30] MEDS: ACETAMINOPHEN 325 MG TAB PO PRN ×2 (12:40→20:31)
--- NOTE | 2020-11-30 17:16 | Psychiatric Progress Note ---
Date of Service November 30, 2020 Impression / Recommendations (1) Depression: 11/30/2020-- Zoloft dose will be increased to 100mg QHS 11/29/20--patient will continue on bupropion 150 mg p.o. every morning. We will also add Zoloft 50 mg nightly to his regimen to combat anxiety. Patient reports some improvement in his mood and is no longer endorsing suicidal ideation at this time. 11/28/20--patient will continue on a half dose of bupropion due to seizure risk as he is withdrawing from alcohol. We will continue to monitor mood. Patient will be down titrated on his bupropion as it is thought to be contributing significantly to his anxiety. Patient normally takes 300 mg p.o. every morning, will administer half dose 150 mg p.o. every morning starting tomorrow 11/28/2020 and assess further need. Patient will continue to stay on the inpatient psychiatric unit for safety, stabilization, medication management. (2) Alcohol use disorder: 11/30/20--patient continues on ANA protocol. Reports improvement of symptoms. 11/28/20--Patient currently on ANA protocol. We will continue to monitor for signs and symptoms of withdrawal. Protective Factors Assessment Employed: Yes () Interval History Chief Complaint "I Think I'm starting to feel little bit better". Review of Systems Sleep Information Total Hours of Sleep: 8.5 Meal Information Percent Meal Consumed - Breakfast: 100 Percent Meal Consumed - Lunch: 100 Percent Meal Consumed - Dinner: 100 Nutrition Comment: Patient not feeling well for dinner, crackers tolerated Subjective Subjective Patient was seen & assessed and interval progress reviewed with treatment team nursing and social work Patient spent some of the day isolating in his room but was seen going to some groups. Patient reports some improvement in his symptoms and states that the Zoloft medication was helpful with his anxiety. Agreeable to increase the dosage. Patient is reporting some improvement in mood and is thankful for the treatment. Denies any hallucinations or tremors or other signs of acute withdrawal. Physical Exam Psychiatric Orientation: alert, oriented x 3, oriented to person, oriented to place, oriented to time and cooperative Apperance: appropriately groomed and appeared stated age Eye Contact: + fair eye contact Motor Behavior: + tremor Speech: normal rate/rhythm/volume of speech Affect: + anxious affect Mood: + depressed mood and + anxious mood Thought Process: goal directed thought process and + perseveration Thought Content: + hopelessness and + worthlessness Homicidal Thoughts: denies homicidal thoughts Cognition: remote memory grossly intact Estimated Intelligence: average estimated intelligence Insight: + fair insight Judgement: + poor judgement Vital Signs (Past 24 Hours) Last Vital Signs Temp 36.6 C 11/30/20 16:43 Pulse 107 H 11/30/20 16:43 Resp 16 11/30/20 16:43 BP 144/92 H 11/30/20 16:43 Pulse Ox 100 11/30/20 16:43 Results & Data ([facility]) Current Inpatient Medications Current Inpatient Medications: Current Inpatient Medications Acetaminophen (Acetaminophen 325 Mg Tab) 650 mg PO Q4H PRN PRN Reason: Headache or Minor Fever Stop: 12/27/20 11:21 Last Admin: 11/30/20 12:40 Dose: 650 mg Documented by: Al Hydrox/Mg Hydrox/Simethicone (Aluminum/Magnesium Susp 30 Ml Udc) 30 ml PO Q4H PRN PRN Reason: GI Upset Stop: 12/27/20 11:21 Last Admin: 11/27/20 21:11 Dose: 30 ml Documented by: Bismuth Subsalicylate (Bismuth Subsalicylate Liqd 236 Ml) 15 ml PO PRN PRN PRN Reason: Loose Stool Stop: 12/27/20 11:21 Bupropion HCl (Bupropion Xl 150 Mg Tabcr) 150 mg PO QAM EMIR Stop: 12/28/20 08:59 Last Admin: 11/30/20 09:06 Dose: 150 mg Documented by: Folic Acid (Folic Acid 1 Mg Tab) 1 mg PO QAM EMIR Stop: 12/27/20 14:29 Last Admin: 11/30/20 09:07 Dose: 1 mg Documented by: Gabapentin (Gabapentin 600 Mg Tab) 600 mg PO Q24H EMIR Stop: 11/30/20 20:30 Hydroxyzine HCl (Hydroxyzine Hcl 25 Mg Tab) 50 mg PO HSZ PRN PRN Reason: Insomnia Stop: 12/27/20 11:21 Last Admin: 11/27/20 21:03 Dose: 50 mg Documented by: Hydroxyzine HCl (Hydroxyzine Hcl 25 Mg Tab) 25 mg PO Q4H PRN PRN Reason: Anxiety Stop: 12/27/20 11:21 Lorazepam (Lorazepam 1 Mg Tab) 1 - 3 mg PO UD PRN; Protocol PRN Reason: EtoH Withdrawal AWSS 6-10+ Stop: 12/27/20 14:17 Last Admin: 11/29/20 22:10 Dose: 1 mg Documented by: Magnesium Hydroxide (Magnesium Hydroxide Susp 30 Ml Udc) 30 ml PO DAILY PRN PRN Reason: Constipation Stop: 12/27/20 11:21 Sertraline HCl (Sertraline Hcl 50 Mg Tablet) 50 mg PO HS EMIR Stop: 12/29/20 21:59 Last Admin: 11/29/20 20:54 Dose: 50 mg Documented by: Sodium Chloride (Sodium Chloride 0.65% Na Soln 45 Ml ([place])) 1 - 2 sprays NA PRN PRN PRN Reason: Nasal Dryness/Congestion Stop: 12/27/20 11:21 Thiamine HCl (Thiamine Hcl 100 Mg Tab) 100 mg PO QAM EMIR Stop: 12/27/20 14:29 Last Admin: 11/30/20 09:07 Dose: 100 mg Documented by: Mental Health & Subst Abuse Tx Psychiatrist Name of Psychiatrist: Dr. Khan [facility] Date of Appointment with Psychiatrist: 12/05/20 Time of Appointment with Psychiatrist: 12:30 Psychiatric Appointment Comment: in person appt Therapist Name of Therapist: Flor [facility] Date of Therapist Appointment: 12/14/20 Time of Therapist Appointment: 2pm Forest Scientist Name of Forest Scientist: N/A Post Discharge Appointments Primary Care Physician Name Of Family Doctor: Rashard Rahman Partial or Psych Rehab Name of Partial or Psych Rehab: [facility] Phone Number of Partial or Psych Rehab: [phone] Date of Appointment at Partial or Psych Rehab: 12/04/20 Time of Appointment at Partial or Psych Rehab: 10am Partial or Psych Rehab Appointment Comment: MWF 10am Contact Information Discharge Discharge Address: [address] [place] [address] (1) Depression Active/Remission status: currently active Depression Type: major depressive disorder Major depression episode severity: severe Major depression recurrence: recurrent Psychotic features: without psychotic features Qualified Code(s): F33.2 - Major depressive disorder, recurrent severe without psychotic features
[2020-11-30] MEDS ORDERED: GABAPENTIN 600 MG TAB PO SCH (20:29)
[2020-11-30] MEDS: ALUMINUM/MAGNESIUM SUSP 30 ML UDC PO PRN (20:30)
[2020-11-30] MEDS ORDERED: SERTRALINE HCL 100 MG TABLET PO SCH (22:00)
[2020-12-01] MEDS: THIAMINE HCL 100 MG TAB PO SCH (08:25)
[2020-12-01] MEDS: buPROPion XL 150 MG TABCR PO SCH (08:25)
[2020-12-01] MEDS: FOLIC ACID 1 MG TAB PO SCH (08:25)
[2020-12-01] MEDS: ACETAMINOPHEN 325 MG TAB PO PRN (08:31)
--- NOTE | 2020-12-01 12:30 | Discharge Summary ---
Date of Service December 01, 2020 History of Present Illness Patient is a 40 year old male with history of depression, PTSD, and alcohol abuse who presents to the ED with acute suicidal ideation. Patient states that his depression has recently worsened in the context of interpersonal relationship difficulties with his girlfriend as well as difficulties at his job. Patient states that this led him to self-medicate with alcohol, often using copious amounts in the form of liquor and beer. Patient states that he recently was drinking up to 1/2 gallon of [place] amanda per day with additional beers. Patient acknowledges that his mood is negatively impacted by his alcohol use which only helps briefly before serving to further depress him, especially when sobering up. Patient states that he was unsettled by his most recent episode of drinking as he had no relief of his symptoms which made him feel hopeless and contemplate suicidal ideation.Furthermore patient states that he has been having episodes of poor sleep which he attributes to his PTSD and nightmares. Patient expressed his SI to his girlfriend who encouraged him to come to the ED. Physical Exam Mental Examination Appearance: Well Groomed Eye Contact: Direct Eye Contact Motor Behavior: Unremarkable Speech: Normal Mood: Anxious Affect: Anxious Thought Process: Intact Insight: Good Judgement: Good Psychiatric Orientation: alert, oriented x 3, oriented to person, oriented to place, oriented to time and cooperative Apperance: appropriately groomed and appeared stated age Eye Contact: + fair eye contact Motor Behavior: steady gait and station Speech: normal rate/rhythm/volume of speech Affect: euthymic affect Mood: no depressed mood and no anxious mood Thought Process: goal directed thought process Thought Content: reality based without delusions; no delusions Suicidal Thoughts: denies suicidal thoughts Homicidal Thoughts: denies homicidal thoughts Hallucinations: no auditory hallucinations and no visual hallucinations Cognition: remote memory grossly intact Estimated Intelligence: average estimated intelligence Insight: good insight Judgement: + fair judgement Vital Signs (Past 24 Hours) Last Vital Signs Temp 36.5 C 12/01/20 12:12 Pulse 95 H 12/01/20 12:12 Resp 18 12/01/20 12:12 BP 135/100 12/01/20 12:12 Pulse Ox 98 12/01/20 12:12 Principal Diagnosis Major depressive disorder Psychiatric Data See daily stay summary. In short, safety was maintained, and the patient was cooperative with care. Medication changes included decreasing Wellbutrin as well as adding and increasing Zoloft, and they were tolerated well by the patient. A family session was held and safety plan was completed prior to discharge. Day of Discharge Assessment Today the patient voices readiness for discharge. They note improvement in mood and deny thoughts to harm self or others. Thoughts remain organized and they are improved from admission. There is no evidence of psychosis. They agree to take medications as prescribed and keep follow-up appointments. They are stable for discharge to outpatient level of care. Transition of Care Transition Of Care Record: was reviewed with the patient Advance Directives Advance Directives Information Provided: Yes Advance Directives: No Mental Health Advance Directive: No Advance Directives on File: No Living Will: No Power of Corporate Job Titles: No Advance Directives Reason:: Declines as Mental Health Visit. 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 Relationships: Yes Supportive Family: Yes Good Rapport with Provider: Yes Tobacco Cessation at Discharge Tobacco Cessation Medication Prescribed at Discharge: Not Applicable/Non-Smoker Total Time Total Time Spent: Greater Than 30 Minutes Total Time Includes: Examination of the patient, Discharge Planning and Medication Reconciliation Discharge Data Lab Results 11/26/20 11/26/20 11/26/20 17:37 17:37 17:57 WBC 5.60 RBC 5.41 Hgb 16.1 Hct 44.3 MCV 81.9 MCH 29.8 MCHC 36.3 H RDW Std Deviation 39.6 RDW Coeff of Francois 13.4 Plt Count 167 MPV 8.9 Immature Gran % (Auto) 0.0 Neut % (Auto) 47.8 Lymph % (Auto) 40.9 [place] % (Auto) 10.7 Eos % (Auto) 0.2 Baso % (Auto) 0.4 Neut # (Auto) 2.68 Lymph # (Auto) 2.29 [place] # (Auto) 0.60 H Eos # (Auto) 0.01 Baso # (Auto) 0.02 Immature Gran # (Auto) 0.00 Sodium Potassium Chloride Carbon Dioxide Anion Gap BUN Creatinine Est Cr Clr Drug Dosing Est GFR ( Amer) Est GFR (Non-Af Amer) BUN/Creatinine Ratio Glucose Uric Acid Calcium Magnesium Total Bilirubin AST ALT Alkaline Phosphatase Total Protein Albumin Globulin Albumin/Globulin Ratio TSH Urine Color Yellow Urine Appearance Clear Urine pH 8.0 H Ur Specific [place] 1.020 Urine Protein Negative Urine Glucose (UA) Negative Urine Ketones Negative Urine Blood Negative Urine Nitrite Negative Urine Bilirubin Negative Urine Urobilinogen Negative Ur Leukocyte Esterase Trace H Urine WBC (Auto) 1-5 Urine RBC (Auto) 0-4 U Hyaline Cast (Auto) 0 U Epithel Cells (Auto) 0-5 Urine Bacteria (Auto) Negative Salicylates Urine Opiates Screen Neg Ur Methadone, Qual Neg Acetaminophen Urine Barbiturates Neg Ur Phencyclidine (PCP) Neg U Amphetamin/Meth Scrn Neg MDMA (Ecstasy) Screen Neg U Benzodiazepines Scrn Neg Ur Cocaine Metabolite Neg U Marijuana (THC) Screen Neg Ethyl Alcohol mg/dL COVID-19 Eval Order SARS-CoV-2 (PCR) Influenza Type A (PCR) Influenza Type B (PCR) RSV (RT-PCR) 11/26/20 11/26/20 11/26/20 17:57 17:57 17:57 WBC RBC Hgb Hct MCV MCH MCHC RDW Std Deviation RDW Coeff of Francois Plt Count MPV Immature Gran % (Auto) Neut % (Auto) Lymph % (Auto) [place] % (Auto) Eos % (Auto) Baso % (Auto) Neut # (Auto) Lymph # (Auto) [place] # (Auto) Eos # (Auto) Baso # (Auto) Immature Gran # (Auto) Sodium 140 Potassium 3.7 Chloride 107 Carbon Dioxide 22 Anion Gap 11.0 BUN 10 Creatinine 1.13 Est Cr Clr Drug Dosing 114.5 Est GFR ( Amer) 95.0 Est GFR (Non-Af Amer) 82.0 BUN/Creatinine Ratio 8.4 L Glucose 137 H Uric Acid 7.6 H Calcium 8.3 L Magnesium 2.5 H Total Bilirubin 0.6 AST 74 H ALT 117 H Alkaline Phosphatase 84 Total Protein 7.3 Albumin 4.1 Globulin 3.2 Albumin/Globulin Ratio 1.3 TSH 1.140 Urine Color Urine Appearance Urine pH Ur Specific [place] Urine Protein Urine Glucose (UA) Urine Ketones Urine Blood Urine Nitrite Urine Bilirubin Urine Urobilinogen Ur Leukocyte Esterase Urine WBC (Auto) Urine RBC (Auto) U Hyaline Cast (Auto) U Epithel Cells (Auto) Urine Bacteria (Auto) Salicylates < 1.7 L Urine Opiates Screen Ur Methadone, Qual Acetaminophen < 2 L Urine Barbiturates Ur Phencyclidine (PCP) U Amphetamin/Meth Scrn MDMA (Ecstasy) Screen U Benzodiazepines Scrn Ur Cocaine Metabolite U Marijuana (THC) Screen Ethyl Alcohol mg/dL 336.0 H COVID-19 Eval Order SARS-CoV-2 (PCR) Influenza Type A (PCR) Influenza Type B (PCR) RSV (RT-PCR) 11/26/20 11/26/20 19:17 19:17 WBC RBC Hgb Hct MCV MCH MCHC RDW Std Deviation RDW Coeff of Francois Plt Count MPV Immature Gran % (Auto) Neut % (Auto) Lymph % (Auto) [place] % (Auto) Eos % (Auto) Baso % (Auto) Neut # (Auto) Lymph # (Auto) [place] # (Auto) Eos # (Auto) Baso # (Auto) Immature Gran # (Auto) Sodium Potassium Chloride Carbon Dioxide Anion Gap BUN Creatinine Est Cr Clr Drug Dosing Est GFR ( Amer) Est GFR (Non-Af Amer) BUN/Creatinine Ratio Glucose Uric Acid Calcium Magnesium Total Bilirubin AST ALT Alkaline Phosphatase Total Protein Albumin Globulin Albumin/Globulin Ratio TSH Urine Color Urine Appearance Urine pH Ur Specific [place] Urine Protein Urine Glucose (UA) Urine Ketones Urine Blood Urine Nitrite Urine Bilirubin Urine Urobilinogen Ur Leukocyte Esterase Urine WBC (Auto) Urine RBC (Auto) U Hyaline Cast (Auto) U Epithel Cells (Auto) Urine Bacteria (Auto) Salicylates Urine Opiates Screen Ur Methadone, Qual Acetaminophen Urine Barbiturates Ur Phencyclidine (PCP) U Amphetamin/Meth Scrn MDMA (Ecstasy) Screen U Benzodiazepines Scrn Ur Cocaine Metabolite U Marijuana (THC) Screen Ethyl Alcohol mg/dL COVID-19 Eval Order CovFluRsv at [facility] SARS-CoV-2 (PCR) NEGATIVE Influenza Type A (PCR) Negative Influenza Type B (PCR) Negative RSV (RT-PCR) Negative Hospital Course (1) Depression: 11/30/2020-- Zoloft dose will be increased to 100mg QHS 11/29/20--patient will continue on bupropion 150 mg p.o. every morning. We will also add Zoloft 50 mg nightly to his regimen to combat anxiety. Patient reports some improvement in his mood and is no longer endorsing suicidal ideation at this time. 11/28/20--patient will continue on a half dose of bupropion due to seizure risk as he is withdrawing from alcohol. We will continue to monitor mood. Patient will be down titrated on his bupropion as it is thought to be contributing significantly to his anxiety. Patient normally takes 300 mg p.o. every morning, will administer half dose 150 mg p.o. every morning starting tomorrow 11/28/2020 and assess further need. Patient will continue to stay on the inpatient psychiatric unit for safety, stabilization, medication management. (2) Alcohol use disorder: 11/30/20--patient continues on ANA protocol. Reports improvement of symptoms. 11/28/20--Patient currently on ANA protocol. We will continue to monitor for signs and symptoms of withdrawal. Mental Health & Subst Abuse Tx Psychiatrist Name of Psychiatrist: Puja Khan Psychiatrist's Date of Appointment with Psychiatrist: 12/05/20 Time of Appointment with Psychiatrist: 12:30 p.m. Psychiatric Appointment Comment: In person - [address] [place] [address] Therapist Name of Therapist: Carli Ray Therapist's Date of Therapist Appointment: 12/14/20 Time of Therapist Appointment: 2 pm Therapy Appointment Comment: Telehealth Social Work Assistant Name of Social Work Assistant: . Post Discharge Appointments Primary Care Physician Name Of Family Doctor: [facility] Time of Appointment with PCP: Please follow up as needed Provider Appointment Comment: [address] [place] [address] Partial or Psych Rehab Name of Partial or Psych Rehab: [facility] Phone Number of Partial or Psych Rehab: [phone] Date of Appointment at Partial or Psych Rehab: 12/04/20 Time of Appointment at Partial or Psych Rehab: 10 am Partial or Psych Rehab Appointment Comment: [facility] 10am Smoking Cessation Counseling Tobacco Cessation Medication Prescribed at Discharge: Not Applicable/Non-Smoker Contact Information Discharge Discharge Address: [address] [place] [id number] Discharge Plan Discharge Items Patient Disposition: Home - Self-Care Reason For Visit: MAJOR DEPRESSIVE DISORDER Discharge Diagnosis: Major depressive disordder Activity: Resume your previous activity Non-emergency contact: Primary Care Provider, Psychiatrist and Therapist Call non-emergency contact if: you have any medication questions and your symptoms worsen Follow-up/Referrals: PCP,NO [Primary Care Provider] - Diet: Regular Addtl Attending Provider Instructions: SPECIAL CARE INSTRUCTIONS: 1. Follow through with your scheduled aftercare appointments. If unable to keep an appointment, please call to reschedule. 2. Take your medication only as prescribed. Medication should not be changed or stopped without the approval of your doctor. In the event of worsening symptoms or concerns about side effects, contact your doctor immediately. 3. Utilize new healthy coping skills, anger management skills, and stress management skills learned during your hospitalization. Journal feelings and process them with a support person. Identify stressors or situations that may result in relapse, deterioration or inappropriate behaviors and develop a plan to deal with those issues. 4. If your coping skills are ineffective and you are in crisis, contact your outpatient providers for direction. If unable to reach your providers, please call the [facility] CRISIS LINE AT , go to the [facility] walk-in center at [address], [address], [place], or go to the closest Emergency Room. 5. Avoid alcohol and un-prescribed drugs. 6. You have been provided with the Mental Health Advance Directives Pamphlet for your review. AFTERCARE APPOINTMENTS: * Please call your insurance company prior to your scheduled appointment to confirm your aftercare providers are covered. Take your insurance information to your appointments. WHO TO CALL AND WHEN: Medical Emergencies: For questions or emergencies related to your hospital stay, please contact the Inpatient Behavioral Health Unit at [phone]. A barrel assembly inspector is on-call 17/02 for the Behavioral Health Unit for emergencies At any time you feel your situation is an emergency, you may also call 911 immediately. Pending Studies at Discharge: No Stand-Alone Forms: My FaceR[employer], Smoking Cessation Medications and DC Order Prescriptions: New sertraline 100 mg Tablet 100 mg PO HS Qty: 30 RF: 0 bupropion HCl 150 mg Tablet Extended Release 24 Hr 150 mg PO QAM Qty: 30 RF: 0 Discontinued alprazolam [Xanax] 0.25 mg Tablet 0.25 mg PO HS PRN (Reason: Anxiety) RF: 0 bupropion HCl 300 mg Tablet Extended Release 24 Hr 300 mg PO QAM RF: 0 buspirone 15 mg Tablet 15 mg PO BID RF: 0 Discharge Orders: Discharge Order (Routine); Ordered 12/01/20 Ordered By: Don Chin Admission Data Admit Date/Time: 11/27/20 11:23 Attending Provider: Don Chin Admit Provider: Shari Reeder Primary Care Provider: PCP,NO Other Interventions: Discharge Summary Assessment (RN) Last Done: 12/01/20 12:12 PSY Interdisciplinary Discharge Planning Last Done: 12/01/20 12:16 Coding Level of Care Code 64444 D/C day mgmt > 30 min Diagnoses Depression F33.2 Depression Type: major depressive disorder Major depression recurrence: recurrent Active/Remission status: currently active Major depression episode severity: severe Psychotic features: without psychotic features Alcohol use disorder
== END 2020-12-01 14:08 | disposition home or self-care (01) | DRG 885 ==
LOC: EDBD → MERGE 17:15 → ED 17:15 → 3S 11-27 11:23

== ENCOUNTER 2021-01-29 11:02 | Inpatient (IN) ==
[2021-01-29] MEDS ORDERED: MULTI-VITAMIN INFUSION 10 ML, THIAMINE HCL 100 MG, FOLIC ACID 1 MG in SODIUM CHLORIDE 0... IV ONE (12:12)
[2021-01-29] MEDS ORDERED: LORazepam 2 MG/4 ML VIAL IV STA ×2 (12:12→13:02)
[2021-01-29] MEDS ORDERED: ONDANSETRON INJ 2 MG/ML 2 ML VIAL IV STA (12:13)
[2021-01-29] MEDS ORDERED: FAMOTIDINE 20MG/5ML IV PUSH IV STA (12:13)
[2021-01-29] MEDS ORDERED: SODIUM CHLORIDE 0.9% 1000ML 1,000 ML IV ONE (12:13)
[2021-01-29] MEDS ORDERED: PANTOPRAZOLE BOLUS/DRIP 1 EA IV STA (12:22)
[2021-01-29] MEDS ORDERED: PANTOprazole 80 MG in DEXTROSE 5% 100 ML IV ONE (12:22)
[2021-01-29 12:42] LABS: Prothrombin Time 10.4 Seconds (9.0-12.0)
[2021-01-29 12:54] LABS: Albumin Globulin Ratio 1.3 (0.9-2); Albumin Level 4.4 gm/dl (3.4-5.0); BUN Creatinine Ratio 9.3 (10-20); Bilirubin,Total 0.6 mg/dl (0.2-1); Calcium 9.6 mg/dl (8.5-10.1); Creatinine Clr Calc Pharmacy 111.9 ml/min; Est GFR (African American) 101.5 ml/min; Est GFR (Non-African American) 87.6 ml/min; Globulin 3.5 gm/dl (2.5-4.0); Total Protein 7.9 gm/dl (6.4-8.2)
[2021-01-29 13:34] LABS: Basophils # (auto) 0.06 K/uL (0-0.2); Basophils % (auto) 0.9 %; Hematocrit (blood only) 42.9 % (42-52); Hemoglobin 14.9 g/dL (14.0-18.0); Immature Granulocytes # (auto) 0.01 K/uL (0.00-0.02); Immature Granulocytes % (auto) 0.1 %; Lymphocytes # (auto) 1.12 K/uL (1.2-3.4); Mean Corpuscular Hemoglobin 29.6 pg (25-34); Mean Corpuscular Hgb Conc 34.7 g/dL (32-36); Mean Corpuscular Volume 85.1 fL (80-100); Mean Platelet Volume 8.6 fL (7.4-10.4); Monocytes # (auto) 0.48 K/uL (0.11-0.59); Monocytes % (auto) 6.9 %; Neutrophils # (auto) 5.33 K/uL (1.4-6.5); Neutrophils % (auto) 76.1 %; Platelet Count 203 K/uL (130-400); RDW Coefficient of Variation 14.6 % (11.5-14.5); RDW Standard Deviation 45.1 fL (36.4-46.3); Red Blood Count 5.04 M/uL (4.7-6.1)
[2021-01-29] MEDS: PANTOprazole 40 MG in DEXTROSE 5% 100 ML IV SCH ×2 (13:46→19:13)
[2021-01-29] MEDS ORDERED: GABAPENTIN 1200MG ALCOHOL WITHDRAWAL LOAD PO STA (14:14)
[2021-01-29] MEDS ORDERED: GABAPENTIN 600 MG TAB PO ONE (14:14)
--- NOTE | 2021-01-29 15:12 | History & Physical Report ---
Date of Service January 29, 2021 Assessment & Plan (1) Alcohol intoxication: Acute intoxication- ETOH level 162.5-- Gabapentin with Ativan - last drink was 0800 this morning - Already started on Gabapentin AAWS protocol- 1200mg load completed - continue- if symptoms become more aggressive can increase Ativan - Thiamine 200mg IV daily - Folic acid 1mg PO daily - LR at 125 ml per hour - Follow closely (2) Hematemesis: Rule out UGI bleed with risk factors of NSAID use and heavy ETOH abuse - BUN not elevated - GI consulted - CXR pending for evaluation of neck/chest (3) Alcohol use disorder: As above (4) Metabolic acidosis, increased anion gap: VBG pending - Likely related to hypovolemia- and elevated lactate - Decrease PO intake with ETOH abuse and ketosis - Urine toxicology screen negative except for Benzos- This was obtained after Ativan dosing in the EMD. - Salicylates <1.7, Acetaminophen <2 - continue LR at 125 (5) Depression: Continue outpatient medications (6) Elevated liver enzymes: Acute alcoholic elevation - resuscitate with LR - not encephalopathic - INR 1.0 - Bilirubin not elevated (7) Suicidal ideation: Patient admitted with 1:1 and suicide safe tray - He states he does not want to kill himself at this time however, is still intoxicated - Appreciate psych input History of Present Illness Primary Care Provider: NO PCP 40 YOM with past medical history of ETOH abuse, and major depression, PTSD, EMD visits for agitation and combativeness, suicidal ideation in November. Patient came to the Emergency room today for throwing up blood in the setting of acute alcoholic intoxication in the attempt to try and "end it all". Patient reports that he started drinking yesterday more heavily but has been drinking to the point of inebriation for the past 5 days with [place]. Patient has had a falling out with his girlfriend which he reports she had an and did not tell him. Patient also endorses that he has been having bouts of hematemesis which the volume varies and is intoxicated at this time so quantifying this is difficult. Patient also reports that it got worse this morning. He also takes Aleve for headaches 3-4 times per week. He does not know what causes his headaches. In the EMD he was started on AWWS protocol with gabapentin load, and a Protonix drip following a bolus. Patient will be admitted for clearance of his acute intoxication, AAWS for withdraw symptoms, GI consult for his Hematemesis, and Psych consult for his suicidal ideations and depression. He has received his COVID vaccine and his COVID test on admission is NEGATIVE. Allergies Allergy/AdvReac Type Severity Reaction Status Date / Time No Known Allergies Allergy Unverified 01/29/21 14:05 Home Medications Medication Instructions Recorded Confirmed Type bupropion HCl 150 mg PO QAM #30 tab 12/01/20 01/29/21 Rx sertraline 100 mg PO HS #30 tab 12/01/20 01/29/21 Rx alprazolam 0.25 mg PO TID PRN 01/29/21 01/29/21 History Past Med/Surg History Medical History Alcohol abuse Alcoholic intoxication Depression Depression History of suicide attempt Suicidal ideation Social History Smoking Status: Former smoker Second Hand Exposure: No; Do You Dip or Chew Tobacco: No; Tobacco Cessation Education Requested by Patient: No Hx Alcohol Use: Yes Alcohol type: beer Hx Substance Use: No Preferred Language: [place] Communication Ability: Effective Perfusionist Required: No Beliefs That Will Affect Care: None Current Living Situation: Significant Other Feels Safe at Home: Yes Safety Concerns: Feels Safe At This Time Assistive Devices: None Review of Systems Review of Systems: REVIEW OF SYSTEMS: Constitutional: No fever, sweats or chills Eyes: No diplopia, no worsening or blurred vision ENT: normal hearing, no trouble swallowing Respiratory: No cough, sputum, dyspnea at rest or on exertion Cardiovascular: No chest pain, tightness or palpitations Abdomen: (+) nausea/vomitting, No pain, diarrhea or constipation Musculoskeletal: No joint pain, calf pain, swelling Neurologic: No weakness, numbness/tingling, or balance problems Psychiatric: (+) suicidal ideations, anxiety, and depression Skin: No rash or itch Physical Exam Physical Exam: PHYSICAL EXAM: General: drowsy but awake to voice, no apparent distress Head: Normocephalic, atraumatic ENT: PERRL, EOMI, no pharyngeal exudate, mucous membranes dry, no throat pain, no subcutaneous emphysema on exam Neuro: AAO x 3, speech clear and appropriate, slow in response, strength intact bilaterally 5/5, sensation intact and equal all extremities and dermatomes, no pronator drift Chest: equal rise and fall of the chest, no accessory muscle use, no heaves or thrills, Clear to auscultation, on room air, Cardiac: Regular rate and rhythm, telemetry reviewed-tachycardic, skin warm dry, cap refill <3 seconds, peripheral pulses +2 no JVD, no murmur, no edema GI: NABS x 4 quadrants, soft, nontender to palpation, no rebound, guarding or tenderness : Spontaneously voiding, no pain, no CVA tenderness, Extremities: Normal inspection, no peripheral edema or erythema, calfs nontender to palpation Psych: intoxicated Skin: no rash or erythema Results & Data Results & Data ([facility]) Vital Signs (Past 12 Hours) Vital Signs Temp Pulse Resp BP Pulse Ox 01/29/21 14:31 112 H 24 138/93 96 01/29/21 14:00 120 H 16 98 01/29/21 13:48 123 H 19 133/86 94 01/29/21 13:30 112 H 24 95 01/29/21 13:22 112 H 23 140/94 98 01/29/21 13:00 117 H 20 134/77 97 01/29/21 12:24 119 H 27 H 153/103 H 97 01/29/21 11:30 98 01/29/21 11:25 36.5 C 135 H 16 97 01/29/21 11:12 132 H 20 159/107 H 96 Laboratory Results Abnormal lab results 01/29/21 01/29/21 01/29/21 Range/Units 11:25 12:13 13:18 RDW Coeff of Francois (11.5-14.5) % Lymph # (Auto) (1.2-3.4) K/uL Carbon Dioxide 18 L (21-32) mmol/L Anion Gap 17.0 H (3-11) BUN/Creatinine Ratio 9.3 L (10-20) Glucose 113 H (70-99) mg/dl AST 48 H (15-37) U/L ALT 109 H (12-78) U/L Ethyl Alcohol mg/dL 162.5 H (0-3) mg/dl 01/29/21 Range/Units 13:18 RDW Coeff of Francois 14.6 H (11.5-14.5) % Lymph # (Auto) 1.12 L (1.2-3.4) K/uL Carbon Dioxide (21-32) mmol/L Anion Gap (3-11) BUN/Creatinine Ratio (10-20) Glucose (70-99) mg/dl AST (15-37) U/L ALT (12-78) U/L Ethyl Alcohol mg/dL (0-3) mg/dl Diagnostic Findings XR chest 1V portable HISTORY: 40 years-old Male hematemeisis COMPARISON: 08/01/2020 TECHNIQUE: Portable AP view of the chest FINDINGS: Cardiomediastinal and hilar silhouettes are within normal limits. No pneumothorax, pleural effusion, airspace consolidation or overt pulmonary edema. The bones of the chest appear grossly intact. IMPRESSION: No acute process. Medications Administered Pantoprazole Sodium 40 mg/ (Dextrose) 100 mls @ 20 mls/hr IV Q5H EMIR Stop: 02/28/21 12:37 Last Admin: 01/29/21 13:46 Dose: 8 mg/hr, 20 mls/hr Documented by: [id number] Discontinued Medications Famotidine (Famotidine 20mg/5ml Iv Push) 20 mg IV ONE STA Stop: 01/29/21 12:14 Last Admin: 01/29/21 12:26 Dose: 20 mg Documented by: [id number] Gabapentin (Gabapentin 600 Mg Tab) 1,200 mg PO NOW ONE Stop: 01/29/21 14:15 Last Admin: 01/29/21 15:15 Dose: 1,200 mg Documented by: [id number] Lorazepam (Ativan) 2 mg in 4 mls @ 4 mls/min IV NOW STA Stop: 01/29/21 12:13 Last Admin: 01/29/21 12:28 Dose: 4 mls/min Documented by: [id number] Multivitamins 10 ml/ Thiamine HCl 100 mg/ Folic Acid 1 mg/Sodium Chloride 1,011.2 mls @ 1,011.2 mls/hr IV .Q1H ONE Stop: 01/29/21 13:11 Last Infusion: 01/29/21 14:03 Dose: 0 mls/hr Documented by: [id number] Admin: 01/29/21 13:02 Dose: 1,011.2 mls/hr Documented by: [id number] Sodium Chloride (Nss 1000ml) 1,000 mls @ 999 mls/hr IV .Q1H1M ONE Stop: 01/29/21 13:13 Last Infusion: 01/29/21 14:04 Dose: 0 mls/hr Documented by: [id number] Admin: 01/29/21 12:27 Dose: 999 mls/hr Documented by: [id number] Pantoprazole Sodium 80 mg/ (Dextrose) 120 mls @ 400 mls/hr IV NOW ONE Stop: 01/29/21 12:39 Last Infusion: 01/29/21 14:03 Dose: 0 mls/hr Documented by: [id number] Admin: 01/29/21 13:44 Dose: 400 mls/hr Documented by: [id number] Lorazepam (Ativan) 2 mg in 4 mls @ 4 mls/min IV NOW STA Stop: 01/29/21 13:03 Last Admin: 01/29/21 13:20 Dose: 4 mls/min Documented by: [id number] Ondansetron HCl (Ondansetron Inj 2 Mg/Ml 2 Ml Vial) 4 mg IV NOW STA Stop: 01/29/21 12:14 Last Admin: 01/29/21 12:26 Dose: 4 mg Documented by: [id number] ECG Additional Comments: Pending on admission Code Status & VTE Plan Code Status CODE: FULL VTE: SCD's, ambulation VTE Prophylaxis Plan VTE Prophylaxis will be ordered: Yes Supervising Physician Co-Signing Physician Notes Discussed case with nurse practitioner, agree with his note above. Patient here after several days of excessive alcohol abuse, depressed and expressing suicidal ideation. Plan to monitor in the next 48 hours and treat potential alcohol withdrawal symptoms. Patient is currently on a one-to-one, will likely need to be transferred to behavioral health once medically cleared. If patient attempts to leave, would consider 302 commitment considering his expression of suicidal ideation. PG Care Time/CCT Total # of Minutes Spent Total Time Spent with Patient: Total time spent is greater than 50% in coordination of care (as documented) at patient's floor/unit and/or counseling patient: Coding Level of Care Code 36331 Initial Inpt Care Lvl 3 Diagnoses Alcohol intoxication F10.929 Complication of substance-induced condition: with unspecified complication Hematemesis K92.0 Nausea presence: unspecified Alcohol use disorder Metabolic acidosis, increased anion gap E87.2 Depression F33.2 Active/Remission status: currently active Depression Type: major depressive disorder Major depression episode severity: severe Major depression recurrence: recurrent Psychotic features: without psychotic features Elevated liver enzymes R74.8 Suicidal ideation R45.851 (1) Alcohol intoxication Complication of substance-induced condition: with unspecified complication Qualified Code(s): F10.929 - Alcohol use, unspecified with intoxication, unspecified (2) Depression Active/Remission status: currently active Depression Type: major depressive disorder Major depression episode severity: severe Major depression recurrence: recurrent Psychotic features: without psychotic features Qualified Code(s): F33.2 - Major depressive disorder, recurrent severe without psychotic features (3) Hematemesis Nausea presence: unspecified Qualified Code(s): K92.0 - Hematemesis
--- NOTE | 2021-01-29 15:49 | XRay Report ---
XR chest 1V portable HISTORY: 40 years-old Male hematemeisis COMPARISON: 08/01/2020 TECHNIQUE: Portable AP view of the chest FINDINGS: Cardiomediastinal and hilar silhouettes are within normal limits. No pneumothorax, pleural effusion, airspace consolidation or overt pulmonary edema. The bones of the chest appear grossly intact. IMPRESSION: No acute process. ACT 112: Negative or not required by law. The above report was generated using voice recognition software. It may contain grammatical, syntax o r spelling errors. Electronically signed by: Minor Jaffe M.D. 01/29/2021 3:47 PM
[2021-01-29 16:21] LABS: Oxygen Saturation VBG 89.2 %; pH VBG 7.43 (7.36-7.41)
[2021-01-29 16:21] LABS: Amphetamines+Metham, Urine Neg (Neg); Barbiturates, Urine Neg (Neg); Benzodiazepine, Urine Pos (Neg); Cocaine, Urine Neg (Neg); MDMA (Ecstacy), Urine Neg (Neg); Methadone, Urine Neg (Neg); Opiate, Urine Neg (Neg); Phencyclidine, Urine Neg (Neg)
[2021-01-29] MEDS: LACTATED RINGER'S 1,000 ML IV SCH ×2 (16:30→23:19)
[2021-01-29] MEDS ORDERED: LORazepam 1 MG/2 ML VIAL IV PRN (18:34)
[2021-01-29] MEDS ORDERED: LACTATED RINGER'S 1,000 ML IV ONE (20:10)
[2021-01-29] MEDS: SERTRALINE HCL 100 MG TABLET PO SCH (20:18)
--- NOTE | 2021-01-29 21:46 | Emergency Department Note ---
History of Present Illness General Chief complaint: Alcohol Intoxication Stated complaint: ETOH Source: patient and RN notes reviewed Mode of arrival: EMS Limitations: no limitations History of Present Illness Provider complaint: Alcohol withdrawal This patient is a 40-year-old male who presents emergency department with complaints of alcohol withdrawal. Patient states he found out several days ago with his ex-girlfriend had an without his knowledge and has been drinking heavily for the last 5 days. He does have a history of heavy alcohol abuse and suicidal ideation/depression. He was recently admitted to the inpatient mental health unit for similar several months ago. Patient denies any medication overdoses. He denies any active plans although good "drinking himself to ." He called the ambulance today because he began to vomit and noticed blood. He states he decided he did not want his ex-girlfriend and her family to have the satisfaction of knowing he this way. He denies any recent illnesses otherwise. He did have several beers today. Home Medications Medication Instructions Recorded Confirmed Type bupropion HCl 150 mg PO QAM #30 tab 12/01/20 01/29/21 Rx sertraline 100 mg PO HS #30 tab 12/01/20 01/29/21 Rx alprazolam 0.25 mg PO TID PRN 01/29/21 01/29/21 History Allergies Allergy/AdvReac Type Severity Reaction Status Date / Time No Known Allergies Allergy Unverified 01/29/21 14:05 Past Med/Surg History Medical History Alcohol abuse Alcoholic intoxication Depression Depression History of suicide attempt Suicidal ideation Social History Smoking Status: Former smoker Second Hand Exposure: No; Do You Dip or Chew Tobacco: No; Tobacco Cessation Education Requested by Patient: No Hx Alcohol Use: Yes Alcohol type: beer Hx Substance Use: No Preferred Language: Bahamian Communication Ability: Effective Digital Strategist Senior Manager Required: No Beliefs That Will Affect Care: None Current Living Situation: Significant Other Feels Safe at Home: Yes Safety Concerns: Feels Safe At This Time Assistive Devices: None Review of Systems See HPI for pertinent positives & negatives. and A total of 10 systems reviewed and were otherwise negative Physical Exam Vital Signs Vital Signs - 24 hr 01/29/21 11:12 01/29/21 11:25 01/29/21 11:30 Temperature 36.5 C Temperature Source Oral Pulse Rate 132 H 135 H Pulse Rate from SpO2 Sensor 131 H Pulse Rhythm Regular Pulse Strength Normal Respiratory Rate 20 16 Respiratory Effort / Characteristics Non-Labored Spontaneous Respiratory Depth Normal Respiratory Pattern Regular Blood Pressure 159/107 H Blood Pressure Mean 124 Blood Pressure Position Lying Pulse Oximetry 96 97 98 Oxygen Delivery Method Room Air Room Air Sepsis Recent Fever Within 48 Hours No Sepsis New/Unexplained Change in Mental Status N/A Sepsis Action Taken by Nursing No Action Required 01/29/21 12:24 01/29/21 13:00 01/29/21 13:22 Temperature Temperature Source Pulse Rate 119 H 117 H 112 H Pulse Rate from SpO2 Sensor 119 H 120 H 112 H Pulse Rhythm Pulse Strength Respiratory Rate 27 H 20 23 Respiratory Effort / Characteristics Respiratory Depth Respiratory Pattern Blood Pressure 153/103 H 134/77 140/94 Blood Pressure Mean 119 96 109 Blood Pressure Position Pulse Oximetry 97 97 98 Oxygen Delivery Method Sepsis Recent Fever Within 48 Hours Sepsis New/Unexplained Change in Mental Status Sepsis Action Taken by Nursing 01/29/21 13:30 01/29/21 13:48 01/29/21 14:00 Temperature Temperature Source Pulse Rate 112 H 123 H 120 H Pulse Rate from SpO2 Sensor 112 H 122 H 119 H Pulse Rhythm Pulse Strength Respiratory Rate 24 19 16 Respiratory Effort / Characteristics Respiratory Depth Respiratory Pattern Blood Pressure 133/86 Blood Pressure Mean 101 Blood Pressure Position Pulse Oximetry 95 94 98 Oxygen Delivery Method Sepsis Recent Fever Within 48 Hours Sepsis New/Unexplained Change in Mental Status Sepsis Action Taken by Nursing 01/29/21 14:31 Temperature Temperature Source Pulse Rate 112 H Pulse Rate from SpO2 Sensor 113 H Pulse Rhythm Pulse Strength Respiratory Rate 24 Respiratory Effort / Characteristics Respiratory Depth Respiratory Pattern Blood Pressure 138/93 Blood Pressure Mean 108 Blood Pressure Position Pulse Oximetry 96 Oxygen Delivery Method Sepsis Recent Fever Within 48 Hours Sepsis New/Unexplained Change in Mental Status Sepsis Action Taken by Nursing Vital signs reviewed. Tachycardic and hypertensive General: Generally well-appearing 40-year-old male, anxious but in no signifi cant distress. HEENT: No scleral icterus, PERRLA, neck supple. Atraumatic. Cardiovascular: Regular but tachycardic, no extra sounds. Pulmonary: Clear to auscultation bilaterally, normal work of breathing. Abdomen: Soft, nontender, nondistended, positive bowel sounds. Musculoskeletal: Atraumatic, no peripheral edema. Neurologic: Patient awake alert and oriented x 3 Skin: Warm, dry, no rash Course Administered Medications Alprazolam (Alprazolam 0.25 Mg Tablet) 0.25 mg PO TID PRN PRN Reason: Anxiety Stop: 02/28/21 18:13 Last Admin: 02/01/21 19:37 Dose: 0.25 mg Documented by: [id number] Admin: 02/01/21 09:32 Dose: 0.25 mg Documented by: [id number] Admin: 01/31/21 23:44 Dose: 0.25 mg Documented by: [id number] Admin: 01/31/21 14:07 Dose: 0.25 mg Documented by: [id number] Admin: 01/31/21 07:47 Dose: 0.25 mg Documented by: [id number] Admin: 01/30/21 09:16 Dose: 0.25 mg Documented by: [id number] Folic Acid ([facility] Acid 1 Mg Tab) [facility] Stop: 03/01/21 08:59 Last Admin: 02/01/21 09:32 Dose: 1 mg Documented by: [id number] Admin: 01/31/21 07:47 Dose: 1 mg Documented by: [id number] Admin: 01/30/21 12:08 Dose: 1 mg Documented by: [id number] Thiamine HCl 300 mg/ Sodium (Chloride) 103 mls @ 208 mls[facility]hr [facility] Stop: 03/01/21 08:59 Last Infusion: 02/01/21 10:08 Dose: 0 mls/hr Documented by: [id number] Admin: 02/01/21 09:36 Dose: 208 mls/hr Documented by: [id number] Infusion: 01/31/21 08:43 Dose: 0 mls/hr Documented by: [id number] Admin: 01/31/21 07:58 Dose: 208 mls/hr Documented by: [id number] Infusion: 01/30/21 09:15 Dose: 0 mls/hr Documented by: [id number] Admin: 01/30/21 08:27 Dose: 208 mls/hr Documented by: [id number] Lorazepam (Lorazepam 1 Mg Tab) 1 - 3 mg PO UD PRN; Protocol PRN Reason: EtoH Withdrawal AWSS 6-10+ Stop: 03/01/21 15:49 Last Admin: 02/01/21 13:35 Dose: 1 mg Documented by: [id number] Admin: 01/31/21 19:57 Dose: 1 mg Documented by: [id number] Admin: 01/31/21 14:48 Dose: 1 mg Documented by: [id number] Admin: 01/30/21 18:32 Dose: 1 mg Documented by: [id number] Admin: 01/30/21 16:29 Dose: 2 mg Documented by: [id number] Sertraline HCl (Sertraline Hcl 100 Mg Tablet) 100 mg PO HS EMIR Stop: 02/28/21 20:59 Last Admin: 02/01/21 20:38 Dose: 100 mg Documented by: [id number] Admin: 01/31/21 20:30 Dose: 100 mg Documented by: [id number] Admin: 01/29/21 20:18 Dose: 100 mg Documented by: [id number] Discontinued Medications Famotidine (Famotidine 20mg/5ml Iv Push) 20 mg IV ONE STA Stop: 01/29/21 12:14 Last Admin: 01/29/21 12:26 Dose: 20 mg Documented by: [id number] Gabapentin (Gabapentin 1200mg Alcohol Withdrawal Load) 1 ea PO NOW STA; Protocol Stop: 01/29/21 14:15 Last Admin: 01/29/21 19:12 Dose: Not Given Documented by: [id number] Gabapentin (Gabapentin 600 Mg Tab) 1,200 mg PO NOW ONE Stop: 01/29/21 14:15 Last Admin: 01/29/21 15:15 Dose: 1,200 mg Documented by: [id number] Gabapentin (Gabapentin 600 Mg Tab) 600 mg PO Q6H EMIR Stop: 01/30/21 04:01 Last Admin: 01/30/21 03:19 Dose: 600 mg Documented by: [id number] Admin: 01/29/21 22:44 Dose: 600 mg Documented by: [id number] Gabapentin (Gabapentin 600 Mg Tab) 600 mg PO Q8H EMIR Stop: 01/31/21 04:01 Last Admin: 01/31/21 03:55 Dose: 600 mg Documented by: [id number] Admin: 01/30/21 19:38 Dose: 600 mg Documented by: [id number] Admin: 01/30/21 13:24 Dose: 600 mg Documented by: [id number] Gabapentin (Gabapentin 600 Mg Tab) 600 mg PO Q12H [facility] Stop: 02/01/21 04:01 Last Admin: 02/01/21 04:31 Dose: 600 mg Documented by: [id number] Admin: 01/31/21 15:49 Dose: 600 mg Documented by: [id number] Lorazepam (Ativan) 2 mg in 4 mls @ 4 mls/min IV NOW STA Stop: 01/29/21 12:13 Last Admin: 01/29/21 12:28 Dose: 4 mls/min Documented by: [id number] Multivitamins 10 ml/ Thiamine HCl 100 mg/ Folic Acid 1 mg/Sodium Chloride 1,011.2 mls @ 1,011.2 mls/hr IV .Q1H ONE Stop: 01/29/21 13:11 Last Infusion: 01/29/21 14:03 Dose: 0 mls/hr Documented by: [id number] Admin: 01/29/21 13:02 Dose: 1,011.2 mls/hr Documented by: [id number] Sodium Chloride (Nss 1000ml) 1,000 mls @ 999 mls/hr IV .Q1H1M ONE Stop: 01/29/21 13:13 Last Infusion: 01/29/21 14:04 Dose: 0 mls/hr Documented by: [id number] Admin: 01/29/21 12:27 Dose: 999 mls/hr Documented by: [id number] Pantoprazole Sodium (Protonix Bolus/Drip) 0 mls @ 1 mls/hr IV ONE STA Stop: 01/29/21 12:23 Last Admin: 01/29/21 19:11 Dose: Not Given Documented by: [id number] Pantoprazole Sodium 40 mg/ (Dextrose) 100 mls @ 20 mls/hr IV Q5H EMIR Stop: 02/28/21 12:37 Last Admin: 02/01/21 18:37 Dose: Not Given Documented by: [id number] Infusion: 02/01/21 18:37 Dose: 0 mg/hr, 0 mls/hr Documented by: [id number] Admin: 02/01/21 11:46 Dose: 8 mg/hr, 20 mls/hr Documented by: [id number] Infusion: 02/01/21 11:17 Dose: 8 mg/hr, 20 mls/hr Documented by: [id number] Admin: 02/01/21 06:17 Dose: 8 mg/hr, 20 mls/hr Documented by: [id number] Infusion: 02/01/21 06:17 Dose: 8 mg/hr, 20 mls/hr Documented by: [id number] Admin: 02/01/21 01:35 Dose: 8 mg/hr, 20 mls/hr Documented by: [id number] Infusion: 02/01/21 01:30 Dose: 8 mg/hr, 20 mls/hr Documented by: [id number] Admin: 01/31/21 20:30 Dose: 8 mg/hr, 20 mls/hr Documented by: [id number] Infusion: 01/31/21 20:30 Dose: 8 mg/hr, 20 mls/hr Documented by: [id number] Admin: 01/31/21 15:47 Dose: 8 mg/hr, 20 mls/hr Documented by: [id number] Infusion: 01/31/21 15:45 Dose: 0 mg/hr, 0 mls/hr Documented by: [id number] Admin: 01/31/21 10:26 Dose: 8 mg/hr, 20 mls/hr Documented by: [id number] Infusion: 01/31/21 10:25 Dose: 0 mg/hr, 0 mls/hr Documented by: [id number] Admin: 01/31/21 05:35 Dose: 8 mg/hr, 20 mls/hr Documented by: [id number] Infusion: 01/31/21 05:35 Dose: 8 mg/hr, 20 mls/hr Documented by: [id number] Admin: 01/31/21 00:43 Dose: 8 mg/hr, 20 mls/hr Documented by: [id number] Infusion: 01/31/21 00:38 Dose: 8 mg/hr, 20 mls/hr Documented by: [id number] Admin: 01/30/21 19:38 Dose: 8 mg/hr, 20 mls/hr Documented by: [id number] Infusion: 01/30/21 19:38 Dose: 8 mg/hr, 20 mls/hr Documented by: [id number] Admin: 01/30/21 14:57 Dose: 8 mg/hr, 20 mls/hr Documented by: [id number] Infusion: 01/30/21 14:16 Dose: 8 mg/hr, 20 mls/hr Documented by: [id number] Admin: 01/30/21 09:16 Dose: 8 mg/hr, 20 mls/hr Documented by: [id number] Infusion: 01/30/21 09:16 Dose: 8 mg/hr, 20 mls/hr Documented by: [id number] Admin: 01/30/21 05:30 Dose: 8 mg/hr, 20 mls/hr Documented by: [id number] Infusion: 01/30/21 05:30 Dose: 8 mg/hr, 20 mls/hr Documented by: [id number] Admin: 01/30/21 00:59 Dose: 8 mg/hr, 20 mls/hr Documented by: [id number] Infusion: 01/30/21 00:59 Dose: 0 mg/hr, 0 mls/hr Documented by: [id number] Infusion: 01/29/21 21:20 Dose: 8 mg/hr, 20 mls/hr Documented by: [id number] Infusion: 01/29/21 20:18 Dose: 0 mg/hr, 0 mls/hr Documented by: [id number] Admin: 01/29/21 19:13 Dose: 8 mg/hr, 20 mls/hr Documented by: [id number] Infusion: 01/29/21 18:46 Dose: 0 mg/hr, 0 mls/hr Documented by: [id number] Admin: 01/29/21 13:46 Dose: 8 mg/hr, 20 mls/hr Documented by: [id number] Pantoprazole Sodium 80 mg/ (Dextrose) 120 mls @ 400 mls/hr IV NOW ONE Stop: 01/29/21 12:39 Last Infusion: 01/29/21 14:03 Dose: 0 mls/hr Documented by: [id number] Admin: 01/29/21 13:44 Dose: 400 mls/hr Documented by: [id number] Lorazepam (Ativan) 2 mg in 4 mls @ 4 mls/min IV NOW STA Stop: 01/29/21 13:03 Last Admin: 01/29/21 13:20 Dose: 4 mls/min Documented by: [id number] Lactated Ringer's (Lr) 1,000 mls @ 125 mls/hr IV .Q8H EMIR Stop: 02/28/21 15:14 Last Infusion: 01/31/21 17:18 Dose: 0 mls/hr Documented by: [id number] Admin: 01/31/21 15:47 Dose: 125 mls/hr Documented by: [id number] Infusion: 01/31/21 15:45 Dose: 0 mls/hr Documented by: [id number] Admin: 01/31/21 07:40 Dose: 125 mls/hr Documented by: [id number] Infusion: 01/31/21 07:35 Dose: 0 mls/hr Documented by: [id number] Admin: 01/30/21 23:28 Dose: 125 mls/hr Documented by: [id number] Infusion: 01/30/21 23:28 Dose: 125 mls/hr Documented by: [id number] Admin: 01/30/21 16:04 Dose: 125 mls/hr Documented by: [id number] Infusion: 01/30/21 15:10 Dose: 125 mls/hr Documented by: [id number] Admin: 01/30/21 07:10 Dose: 125 mls/hr Documented by: [id number] Infusion: 01/30/21 07:10 Dose: 125 mls/hr Documented by: [id number] Admin: 01/29/21 23:19 Dose: 125 mls/hr Documented by: [id number] Infusion: 01/29/21 23:19 Dose: 125 mls/hr Documented by: [id number] Infusion: 01/29/21 21:20 Dose: 125 mls/hr Documented by: [id number] Infusion: 01/29/21 20:18 Dose: 0 mls/hr Documented by: [id number] Admin: 01/29/21 16:30 Dose: 125 mls/hr Documented by: [id number] Lorazepam (Ativan) 1 mg in 2 mls @ 2 mls/min IV Q8 PRN PRN Reason: anxiety Stop: 02/28/21 18:33 Last Admin: 01/29/21 18:46 Dose: 2 mls/min Documented by: [id number] Lactated Ringer's (Lr) 1,000 mls @ 999 mls/hr IV .Q1H1M ONE Stop: 01/29/21 21:10 Last Infusion: 01/29/21 21:20 Dose: 0 mls/hr Documented by: [id number] Admin: 01/29/21 20:18 Dose: 999 mls/hr Documented by: [id number] Ondansetron HCl (Ondansetron Inj 2 Mg/Ml 2 Ml Vial) 4 mg IV NOW STA Stop: 01/29/21 12:14 Last Admin: 01/29/21 12:26 Dose: 4 mg Documented by: [id number] Critical Care Time Critical Care Time: Yes Total Critical Care Time: 35 I have personally spent 35 minutes of critical care time in the direct management of this patient. This was a life/limb threatening event. This 35 minutes is in excess of all separately billable procedures. Medical Decision Making Differential Diagnosis Overdose, toxicologic, infection, hypoglycemia, electrolyte abnormalities, cardiac sources, intracerebral event, neurologic, trauma, as well as other pathologies. Medical Records Attestation: I reviewed the patient's medical records. Home Medications Current Medication List: was personally reviewed by me Laboratory Data Attestation: I reviewed the patient's lab results. Result diagrams: 02/01/21 06:31 02/01/21 08:48 Lab Results 01/29/21 01/29/21 01/29/21 Range/Units 11:25 11:25 11:35 WBC (4.8-10.8) K/uL RBC (4.7-6.1) M/uL Hgb (14.0-18.0) g/dL Hct (42-52) % MCV (80-100) fL MCH (25-34) pg MCHC (32-36) g/dL RDW Std Deviation (36.4-46.3) fL RDW Coeff of Francois (11.5-14.5) % Plt Count (130-400) K/uL MPV (7.4-10.4) fL Immature Gran % (Auto) % Neut % (Auto) % Lymph % (Auto) % [place] % (Auto) % Eos % (Auto) % Baso % (Auto) % Neut # (Auto) (1.4-6.5) K/uL Lymph # (Auto) (1.2-3.4) K/uL [place] # (Auto) (0.11-0.59) K/uL Eos # (Auto) (0-0.5) K/uL Baso # (Auto) (0-0.2) K/uL Immature Gran # (Auto) (0.00-0.02) K/uL PT 10.4 (9.0-12.0) Seconds INR 1.0 (0.9-1.1) Sodium 136 (136-145) mmol/L Potassium (3.5-5.1) mmol/L Chloride 102 (98-107) mmol/L Carbon Dioxide 18 L (21-32) mmol/L Anion Gap 17.0 H (3-11) BUN 10 (7-18) mg/dl Creatinine 1.07 (0.6-1.4) mg/dl Est Cr Clr Drug Dosing 111.9 ml/min Est GFR ( Amer) 101.5 ml/min Est GFR (Non-Af Amer) 87.6 ml/min BUN/Creatinine Ratio 9.3 L (10-20) Glucose 113 H (70-99) mg/dl Calcium 9.6 (8.5-10.1) mg/dl Total Bilirubin 0.6 (0.2-1) mg/dl AST (15-37) U/L ALT 109 H (12-78) U/L Alkaline Phosphatase 96 (45-117) U/L Total Protein 7.9 (6.4-8.2) gm/dl Albumin 4.4 (3.4-5.0) gm/dl Globulin 3.5 (2.5-4.0) gm/dl Albumin/Globulin Ratio 1.3 (0.9-2) Urine Opiates Screen Neg (Neg) Ur Methadone, Qual Neg (Neg) Urine Barbiturates Neg (Neg) Ur Phencyclidine (PCP) Neg (Neg) U Amphetamin/Meth Scrn Neg (Neg) MDMA (Ecstasy) Screen Neg (Neg) U OH-Alprazolam Confrm (<25) ng/mL U Benzodiazepines Scrn Pos H (Neg) 7-Amino Clonazepam (<25) ng/mL Ur Nordiazepam Confirm (<50) ng/mL U OH-ethylflurazepam (<50) ng/mL U Lorazepam Cnf GC/MS (<50) ng/mL U Oxazepam Confm GC/MS (<50) ng/mL Ur Temazepam Confirm (<50) ng/mL U OH-Triazolam Confirm (<50) ng/mL U OH-Midazolam Confirm (<50) ng/mL Ur Cocaine Metabolite Neg (Neg) U Marijuana (THC) Screen Neg (Neg) Drug Screen Comment Ethyl Alcohol mg/dL (0-3) mg/dl COVID-19 Eval Order SARS-CoV-2 (PCR) (Negative) 01/29/21 01/29/21 01/29/21 Range/Units 11:35 12:13 12:40 WBC (4.8-10.8) K/uL RBC (4.7-6.1) M/uL Hgb (14.0-18.0) g/dL Hct (42-52) % MCV (80-100) fL MCH (25-34) pg MCHC (32-36) g/dL RDW Std Deviation (36.4-46.3) fL RDW Coeff of Francois (11.5-14.5) % Plt Count (130-400) K/uL MPV (7.4-10.4) fL Immature Gran % (Auto) % Neut % (Auto) % Lymph % (Auto) % [place] % (Auto) % Eos % (Auto) % Baso % (Auto) % Neut # (Auto) (1.4-6.5) K/uL Lymph # (Auto) (1.2-3.4) K/uL [place] # (Auto) (0.11-0.59) K/uL Eos # (Auto) (0-0.5) K/uL Baso # (Auto) (0-0.2) K/uL Immature Gran # (Auto) (0.00-0.02) K/uL PT (9.0-12.0) Seconds INR (0.9-1.1) Sodium (136-145) mmol/L Potassium (3.5-5.1) mmol/L Chloride (98-107) mmol/L Carbon Dioxide (21-32) mmol/L Anion Gap (3-11) BUN (7-18) mg/dl Creatinine (0.6-1.4) mg/dl Est Cr Clr Drug Dosing ml/min Est GFR ( Amer) ml/min Est GFR (Non-Af Amer) ml/min BUN/Creatinine Ratio (10-20) Glucose (70-99) mg/dl Calcium (8.5-10.1) mg/dl Total Bilirubin (0.2-1) mg/dl AST (15-37) U/L ALT (12-78) U/L Alkaline Phosphatase (45-117) U/L Total Protein (6.4-8.2) gm/dl Albumin (3.4-5.0) gm/dl Globulin (2.5-4.0) gm/dl Albumin/Globulin Ratio (0.9-2) Urine Opiates Screen (Neg) Ur Methadone, Qual (Neg) Urine Barbiturates (Neg) Ur Phencyclidine (PCP) (Neg) U Amphetamin/Meth Scrn (Neg) MDMA (Ecstasy) Screen (Neg) U OH-Alprazolam Confrm NEGATIVE (<25) ng/mL U Benzodiazepines Scrn (Neg) 7-Amino Clonazepam NEGATIVE (<25) ng/mL Ur Nordiazepam Confirm NEGATIVE (<50) ng/mL U OH-ethylflurazepam NEGATIVE (<50) ng/mL U Lorazepam Cnf GC/MS NEGATIVE (<50) ng/mL U Oxazepam Confm GC/MS NEGATIVE (<50) ng/mL Ur Temazepam Confirm NEGATIVE (<50) ng/mL U OH-Triazolam Confirm NEGATIVE (<50) ng/mL U OH-Midazolam Confirm NEGATIVE (<50) ng/mL Ur Cocaine Metabolite (Neg) U Marijuana (THC) Screen (Neg) Drug Screen Comment SEE NOTE Ethyl Alcohol mg/dL 162.5 H (0-3) mg/dl COVID-19 Eval Order Covid19 at [facility] SARS-CoV-2 (PCR) (Negative) 01/29/21 01/29/21 01/29/21 Range/Units 12:40 13:18 13:18 WBC 7.00 (4.8-10.8) K/uL RBC 5.04 (4.7-6.1) M/uL Hgb 14.9 (14.0-18.0) g/dL Hct 42.9 (42-52) % MCV 85.1 (80-100) fL MCH 29.6 (25-34) pg MCHC 34.7 (32-36) g/dL RDW Std Deviation 45.1 (36.4-46.3) fL RDW Coeff of Francois 14.6 H (11.5-14.5) % Plt Count 203 (130-400) K/uL MPV 8.6 (7.4-10.4) fL Immature Gran % (Auto) 0.1 % Neut % (Auto) 76.1 % Lymph % (Auto) 16.0 % [place] % (Auto) 6.9 % Eos % (Auto) 0.0 % Baso % (Auto) 0.9 % Neut # (Auto) 5.33 (1.4-6.5) K/uL Lymph # (Auto) 1.12 L (1.2-3.4) K/uL [place] # (Auto) 0.48 (0.11-0.59) K/uL Eos # (Auto) 0.00 (0-0.5) K/uL Baso # (Auto) 0.06 (0-0.2) K/uL Immature Gran # (Auto) 0.01 (0.00-0.02) K/uL PT (9.0-12.0) Seconds INR (0.9-1.1) Sodium (136-145) mmol/L Potassium 4.0 (3.5-5.1) mmol/L Chloride (98-107) mmol/L Carbon Dioxide (21-32) mmol/L Anion Gap (3-11) BUN (7-18) mg/dl Creatinine (0.6-1.4) mg/dl Est Cr Clr Drug Dosing ml/min Est GFR ( Amer) ml/min Est GFR (Non-Af Amer) ml/min BUN/Creatinine Ratio (10-20) Glucose (70-99) mg/dl Calcium (8.5-10.1) mg/dl Total Bilirubin (0.2-1) mg/dl AST 48 H (15-37) U/L ALT (12-78) U/L Alkaline Phosphatase (45-117) U/L Total Protein (6.4-8.2) gm/dl Albumin (3.4-5.0) gm/dl Globulin (2.5-4.0) gm/dl Albumin/Globulin Ratio (0.9-2) Urine Opiates Screen (Neg) Ur Methadone, Qual (Neg) Urine Barbiturates (Neg) Ur Phencyclidine (PCP) (Neg) U Amphetamin/Meth Scrn (Neg) MDMA (Ecstasy) Screen (Neg) U OH-Alprazolam Confrm (<25) ng/mL U Benzodiazepines Scrn (Neg) 7-Amino Clonazepam (<25) ng/mL Ur Nordiazepam Confirm (<50) ng/mL U OH-ethylflurazepam (<50) ng/mL U Lorazepam Cnf GC/MS (<50) ng/mL U Oxazepam Confm GC/MS (<50) ng/mL Ur Temazepam Confirm (<50) ng/mL U OH-Triazolam Confirm (<50) ng/mL U OH-Midazolam Confirm (<50) ng/mL Ur Cocaine Metabolite (Neg) U Marijuana (THC) Screen (Neg) Drug Screen Comment Ethyl Alcohol mg/dL (0-3) mg/dl COVID-19 Eval Order SARS-CoV-2 (PCR) NEGATIVE (Negative) ECG Data Attestation: I personally reviewed and interpreted this ECG as follows: Indication: + tachycardia Rate (beats per minute): 111 Rhythm: + sinus tachycardia ECG Intervals/blocks: + Normal QRS and + Normal QT-c ECG [place]: + Normal ECG ST segments: + Normal ST segments ECG Findings: + Poor R wave progression Comparison ECG Date: from (08/01/2020) Change: no significant change Blood Pressure Blood Pressure Findings: Elevated blood pressure Blood Pressure Disposition: further management by hospitalist MDM Narrative This patient was evaluated and appeared to be in no significant distress. IV access was obtained and laboratory work was drawn. An order for cardiac monitoring the patient was noted to be in a sinus tachycardia 130 bpm. Patient was hydrated with normal saline solution. He was given 2 mg of IV Ativan. Banana bag was ordered. Laboratory work reveals a blood alcohol of 162. Patient required IV Ativan 2 mg x 2 more doses. He was then given p.o. gabapentin load. Patient has never had an alcohol withdrawal seizure however is exhibiting signs and symptoms that are concerning. Case was discussed with the hospitalist service will evaluate the patient for admission and further management. He will likely require psychiatric consultation while hospitalized. Patient is aware of the plan and agrees. Impression & Plan Alcohol withdrawal syndrome, Suicidal ideation Discharge Plan Visit Data Chief Complaint: Alcohol Intoxication Stated Complaint: ETOH ED Provider: Ana Kirkpatrick Discharge Problem: Alcohol withdrawal syndrome, Suicidal ideation Patient Disposition: Admitted As Inpatient Discharge Instructions Interventions: ED Discharge Assessment Last Done: 01/29/21 18:09 Discharge Problem: Alcohol withdrawal syndrome Qualifiers: Complication of substance-induced condition: uncomplicated Qualified Code(s): F10.230 - Alcohol dependence with withdrawal, uncomplicated
[2021-01-29] MEDS: GABAPENTIN 600 MG TAB PO SCH (22:44)
[2021-01-29] MEDS ORDERED: Nursing to Pharmacy Communication SCH (23:30)
[2021-01-30] MEDS: PANTOprazole 40 MG in DEXTROSE 5% 100 ML IV SCH ×5 (00:59→19:38)
[2021-01-30 01:27] LABS: Basophils # (auto) 0.04 K/uL (0-0.2); Basophils % (auto) 0.8 %; Eosinophils # (auto) 0.06 K/uL (0-0.5); Eosinophils % (auto) 1.2 %; Hematocrit (blood only) 38.4 % (42-52); Hemoglobin 13.4 g/dL (14.0-18.0); Lymphocytes # (auto) 1.84 K/uL (1.2-3.4); Lymphocytes % (auto) 36.1 %; Mean Corpuscular Hemoglobin 29.3 pg (25-34); Mean Corpuscular Hgb Conc 34.9 g/dL (32-36); Mean Corpuscular Volume 83.8 fL (80-100); Mean Platelet Volume 8.4 fL (7.4-10.4); Monocytes # (auto) 0.55 K/uL (0.11-0.59); Monocytes % (auto) 10.8 %; Neutrophils # (auto) 2.61 K/uL (1.4-6.5); Neutrophils % (auto) 51.1 %; Platelet Count 151 K/uL (130-400); RDW Coefficient of Variation 14.7 % (11.5-14.5); RDW Standard Deviation 45.2 fL (36.4-46.3); Red Blood Count 4.58 M/uL (4.7-6.1)
[2021-01-30 01:44] LABS: BUN Creatinine Ratio 7.8 (10-20); Calcium 8.1 mg/dl (8.5-10.1); Creatinine Clr Calc Pharmacy 123.4 ml/min; Est GFR (African American) 114.3 ml/min; Est GFR (Non-African American) 98.6 ml/min; Phosphorus 2.7 mg/dl (2.5-4.9); Potassium 3.6 mmol/L (3.5-5.1)
[2021-01-30] MEDS: GABAPENTIN 600 MG TAB PO SCH ×3 (03:19→19:38)
[2021-01-30] MEDS: LACTATED RINGER'S 1,000 ML IV SCH ×3 (07:10→23:28)
[2021-01-30] MEDS: THIAMINE HCL 300 MG in 0.9 % SODIUM CHLORIDE 100 ML IV SCH (08:27)
[2021-01-30] MEDS ORDERED: buPROPion XL 150 MG TABCR PO SCH (09:00)
[2021-01-30] MEDS: ALPRAZolam 0.25 MG TABLET PO PRN (09:16)
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
--- NOTE | 2021-01-30 10:40 | Gastrointestinal Consultation ---
Date of Consultation January 30, 2021 Assessment & Plan (1) Hematemesis: Though he reports several episodes of emesis with some bright red blood yesterday, this was most likely secondary to alcohol gastritis vs a significant GI bled as Hb and BUN remain normal. He has not had gross GI bleeding since admission. would defer EGD, which is the pt preference as well. May DC Protonix drip and replace with BID PPI during admission but no clear indication for ongoing PPI therapy on DC. Present on Admission?: Yes (2) Elevated liver enzymes: Would expect to continue to return to normal with abstention from alcohol. Present on Admission?: Yes Supervising Physician Co-Signing Physician Notes Late entry: Patient was seen and examined on 01/30 with MELANIE Alvarez whose note reflects our findings and plan. ETOH overdose. Some hematemesis in that setting. BUN normal and hgb stable. Oral PPI BID. Needs ETOH and psych intervention. Please call with questions. History of Present Illness Reason for Consultation: ETOH abuse, hematemesis Requesting Physician: Sharath Olivas DO Attending Physician: Sharath Olivas DO History of Present Illness Mr. Lorenzo Phipps is a 40 yr old male who attempted suicide with alcohol, drinking approx 50 IPAs Friday - Friday. He then activated EMS. On arrival here, transaminases were elevated (AST 48, ALt 117->109 today, bili and ALk Phos remain normal) and he reported having vomited blood. Hb was 14.9 on arrival and 13.4 today. BUN was 10 on arrival, 8 today. He is awake, alert, oriented, has not had further vomiting and has not had any BMs. He denies any black BMs prior to admission as well. He denies any abdominal pain. Allergies Allergy/AdvReac Type Severity Reaction Status Date / Time No Known Allergies Allergy Unverified 01/29/21 14:05 Home Medications Medication Instructions Recorded Confirmed Type bupropion HCl 150 mg PO QAM #30 tab 12/01/20 01/29/21 Rx sertraline 100 mg PO HS #30 tab 12/01/20 01/29/21 Rx alprazolam 0.25 mg PO TID PRN 01/29/21 01/29/21 History Patient History Medical History Alcohol abuse Alcoholic intoxication Depression Depression History of suicide attempt Suicidal ideation Social History Smoking Status: Former smoker Second Hand Exposure: No; Do You Dip or Chew Tobacco: No; Tobacco Cessation Education Requested by Patient: No Hx Alcohol Use: Yes Alcohol type: beer Hx Substance Use: No Preferred Language: Kiswahili Communication Ability: Effective Draftsperson Required: No Beliefs That Will Affect Care: None Current Living Situation: Significant Other Feels Safe at Home: Yes Safety Concerns: Feels Safe At This Time Assistive Devices: None Review of Systems Review of Systems: ROS: Gen: +weakness, No fevers, No weight loss Eyes: No eye redness, or pain, no recent vision changes Resp: No SOB, no cough Cardio: + tachycardia, No palpitations/irregular beats, no chest pain GI: No abdominal pain; nausea/vomiting has resolved. : Denies pain on urination Skin: No jaundice, itching or new rashes Physical Exam Constitutional: WD/WN, vitals as above Eyes: PERRL, conjunctivae normal, anicteric sclerae ENMT: external ear and nose normal, oropharynx normal Neck: trachea midline, no thyromegaly Respiratory: normal respiratory effort, lungs clear to auscultation Cardiovascular: Rate/Rhythm: + tachycardic (92/min, regular) Heart Sounds: normal S1 and normal S2; no murmur Vessels: no JVD Extremities: no edema Gastrointestinal (Abdomen): normal bowel sounds, soft, nontender, no hepatosplenomegaly Musculoskeletal: no cyanosis or clubbing, extremities motor strength 5/5 Skin: no rashes, warm and dry Neurologic: PERRL, EOMI, accommodation nl, no face palsy, no dysarthria Psychiatric: A+Ox3, euthymic affect Lymphatic: no cervical or axillary lymphadenopathy Results & Data ([facility]) Vital Signs (Past 12 Hours) Vital Signs Temp Pulse Resp BP Pulse Ox 01/30/21 06:46 36.7 C 108 H 18 152/95 H 98 Laboratory Results WBC 5, Hb 13.4, Hct 38.4, Plts 15, Na 141, K 3.6, BUN 8, Cr 0.97, glucose 86 Diagnostic Findings CXR 01/29/21: normal. (1) Hematemesis Nausea presence: unspecified Qualified Code(s): K92.0 - Hematemesis
[2021-01-30] MEDS: FOLIC ACID 1 MG TAB PO SCH (12:08)
[2021-01-30] MEDS: LORazepam 1 MG TAB PO PRN ×2 (16:29→18:32)
--- NOTE | 2021-01-30 21:38 | Hospitalist Progress Note ---
Date of Service January 30, 2021 Assessment & Plan (1) Alcohol withdrawal syndrome: very anxious, tachycardia, hypertensive no tremors, no seizure activity continue Gabapentin taper, add on AWSS Ativan scale for active withdrawal holding Wellbutrin per psychiatry will get him through withdrawal process and then try for alcohol rehab he is danger to himself at this time, would not be able to leave AMA (2) Alcohol intoxication: Acute intoxication- ETOH level 162.5 on admission, had been binge drinking with intention to harm himself - Thiamine 200mg IV daily - Folic acid 1mg PO daily - LR at 125 ml per hour, stop tomorrow if he can drink more fluids (3) Hematemesis: one episode, just some streaks of blood Hemoglobin is stable he admits he was retching a lot prior to seeing the blood likely some esophagitis/gastritis from all the drinking no signs of active bleeding at this time hold on EGD (4) Alcohol use disorder: As above (5) Metabolic acidosis, increased anion gap: due to alcohol, poor food intake improving with supportive care (6) Depression: hold Wellbutrin for now per psychiatry (7) Elevated liver enzymes: Acute alcoholic elevation - resuscitate with LR - not encephalopathic - INR 1.0 - Bilirubin not elevated (8) Suicidal ideation: Patient admitted with 1:1 and suicide safe tray - He states he does not want to kill himself at this time he admits that he wanted to hurt himself by drinking too much now he states that he does not want to because if he dies then his ex- girlfriend and her parents would "win" Admission and Anticipated Discharge Date Admission Date: January 29, 2021 Subjective patient is very anxious, tachycardic, elevated BP not eating anything, says he has no appetite but he is drinking water no nausea, no diarrhea, no abdominal pain appreciate GI consult, no plans for EGD, Hb is stable and no further retching d/w psychiatry, patient cannot leave AMA, would initiate 302 if he would want to leave right now he denies suicidal ideation but admits that he was binge drinking with the intention to end his life plan is to get him into alcohol rehab if he agrees, he has a pattern of drinking to cause self harm and needs help he admits that the main source of his anxiety and depression and suicidal thoughts is his relationship with his ex-girlfriend he is not sure if she is or if she had an he is convinced that she and her family are getting this PFA filed against him to keep him out of their lives and prevent him from seeing his child if she is still he says that she got the hearing scheduled on his birthday on purpose he says he has some legal knowledge, 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 he says he did not want to kill himself in the end because if he does that then "they" win, meaning his ex girlfriend and her parents he says he wants to fight this he does not have any family locally, he was in foster care most of his life, he has two sisters in [place] area he was living in a hotel prior to this admission because his ex-girlfriend had filed the PFA against him Review of Systems Review of Systems: All systems reviewed & are unremarkable except as noted in Subjective Psychiatric: + depression, + irritability, + anxiety and + substance abuse; no suicidal ideation and no homicidal ideation Physical Exam Constitutional: well developed, well nourished, + disheveled and cooperative Neck: trachea midline, no thyromegaly Respiratory: normal respiratory effort, lungs clear to auscultation Cardiovascular: Rate/Rhythm: regular rhythm and + tachycardic Heart Sounds: normal S1 and normal S2; no murmur Vessels: no JVD Extremities: normal capillary refill; no edema Gastrointestinal (Abdomen): normal bowel sounds, soft, nontender, no hepatosplenomegaly Musculoskeletal: no cyanosis or clubbing, extremities motor strength 5/5 Skin: no rashes, warm and dry Neurologic: patellar DTR's 2+ bilat, sensation intact and PERRL, EOMI, accommodation nl, no face palsy, no dysarthria Psychiatric: Orientation: alert and oriented x 3 Affect: + anxious affect Mood: + irritable mood and + angry mood Suicidal Thoughts: denies suicidal thoughts Homicidal Thoughts: denies homicidal thoughts Hallucinations: no auditory hallucinations and no visual hallucinations Results & Data Results & Data ([facility]) Vital Signs (Past 12 Hours) Vital Signs Temp Pulse Resp BP Pulse Ox 01/30/21 18:28 37.0 C 111 H 18 164/100 H 94 01/30/21 14:04 36.7 C 123 H 20 171/84 H 97 Laboratory Results Laboratory Results - last 24 hr 01/29/21 01/30/21 01/30/21 23:24 01:17 01:17 WBC 5.10 RBC 4.58 L Hgb 13.4 L Hct 38.4 L MCV 83.8 MCH 29.3 MCHC 34.9 RDW Std Deviation 45.2 RDW Coeff of Francois 14.7 H Plt Count 151 MPV 8.4 Immature Gran % (Auto) 0.0 Neut % (Auto) 51.1 Lymph % (Auto) 36.1 Cole % (Auto) 10.8 Eos % (Auto) 1.2 Baso % (Auto) 0.8 Neut # (Auto) 2.61 Lymph # (Auto) 1.84 Cole # (Auto) 0.55 Eos # (Auto) 0.06 Baso # (Auto) 0.04 Immature Gran # (Auto) 0.00 Sodium 141 Potassium 3.6 Chloride 109 H Carbon Dioxide 26 Anion Gap 6.0 BUN 8 Creatinine 0.97 Est Cr Clr Drug Dosing 123.4 Est GFR ( Amer) 114.3 Est GFR (Non-Af Amer) 98.6 BUN/Creatinine Ratio 7.8 L Glucose 86 Lactate 2.2 H* Calcium 8.1 L D Phosphorus 2.7 Magnesium 2.0 01/30/21 01:17 WBC RBC Hgb Hct MCV MCH MCHC RDW Std Deviation RDW Coeff of Francois Plt Count MPV Immature Gran % (Auto) Neut % (Auto) Lymph % (Auto) Cole % (Auto) Eos % (Auto) Baso % (Auto) Neut # (Auto) Lymph # (Auto) Cole # (Auto) Eos # (Auto) Baso # (Auto) Immature Gran # (Auto) Sodium Potassium Chloride Carbon Dioxide Anion Gap BUN Creatinine Est Cr Clr Drug Dosing Est GFR ( Amer) Est GFR (Non-Af Amer) BUN/Creatinine Ratio Glucose Lactate 2.0 Calcium Phosphorus Magnesium Medications Administered Current Inpatient Medications Alprazolam (Alprazolam 0.25 Mg Tablet) 0.25 mg PO TID PRN PRN Reason: Anxiety Stop: 02/28/21 18:13 Last Admin: 01/30/21 09:16 Dose: 0.25 mg Documented by: Bupropion HCl (Bupropion Xl 150 Mg Tabcr) 150 mg PO QAM EMIR Stop: 03/01/21 08:59 Folic Acid (Folic Acid 1 Mg Tab) 1 mg PO QAM EMIR Stop: 03/01/21 08:59 Last Admin: 01/30/21 12:08 Dose: 1 mg Documented by: Gabapentin (Gabapentin 600 Mg Tab) 600 mg PO Q8H EMIR Stop: 01/31/21 04:01 Last Admin: 01/30/21 19:38 Dose: 600 mg Documented by: Gabapentin (Gabapentin 600 Mg Tab) 600 mg PO Q12H EMIR Stop: 02/01/21 04:01 Gabapentin (Gabapentin 600 Mg Tab) 600 mg PO Q24H EMIR Stop: 02/02/21 02:15 Pantoprazole Sodium 40 mg/ (Dextrose) 100 mls @ 20 mls/hr IV Q5H [facility] Stop: 02/28/21 12:37 Last Admin: 01/30/21 19:38 Dose: 8 mg/hr, 20 mls/hr Documented by: Lactated Ringer's (Lr) 1,000 mls @ 125 mls/hr IV .Q8H [facility] Stop: 02/28/21 15:14 Last Admin: 01/30/21 16:04 Dose: 125 mls/hr Documented by: Thiamine HCl 300 mg/ Sodium (Chloride) 103 mls @ 208 mls/hr IV QAM [facility] Stop: 03/01/21 08:59 Last Infusion: 01/30/21 09:15 Dose: Infused Documented by: Lorazepam (Lorazepam 1 Mg Tab) 1 - 3 mg PO UD PRN; Protocol PRN Reason: EtoH Withdrawal AWSS 6-10+ Stop: 03/01/21 15:49 Last Admin: 01/30/21 18:32 Dose: 1 mg Documented by: Sertraline HCl (Sertraline Hcl 100 Mg Tablet) 100 mg PO HS [facility] Stop: 02/28/21 20:59 Last Admin: 01/29/21 20:18 Dose: 100 mg Documented by: PG Care Time/CCT Total # of Minutes Spent Total Time Spent: 33 Total Time Spent with Patient: Total time spent is greater than 50% in coordination of care (as documented) at patient's floor/unit and/or counseling patient: Coding Level of Care Code 38563 Subseq Hosp Care Lvl 3 (25 - SIGNIFICANT, SEPARATELY IDENTIFIABLE ) Diagnoses Alcohol withdrawal syndrome F10.230 Complication of substance-induced condition: uncomplicated Alcohol intoxication F10.929 Complication of substance-induced condition: with unspecified complication Hematemesis K92.0 Nausea presence: unspecified Alcohol use disorder Metabolic acidosis, increased anion gap E87.2 Depression F33.2 Active/Remission status: currently active Depression Type: major depressive disorder Major depression episode severity: severe Major depression recurrence: recurrent Psychotic features: without psychotic features Elevated liver enzymes R74.8 Suicidal ideation R45.851 (1) Alcohol intoxication Complication of substance-induced condition: with unspecified complication Qualified Code(s): F10.929 - Alcohol use, unspecified with intoxication, unspecified (2) Depression Active/Remission status: currently active Depression Type: major depressive disorder Major depression episode severity: severe Major depression recurrence: recurrent Psychotic features: without psychotic features Qualified Code(s): F33.2 - Major depressive disorder, recurrent severe without psychotic features (3) Hematemesis Nausea presence: unspecified Qualified Code(s): K92.0 - Hematemesis (4) Alcohol withdrawal syndrome Complication of substance-induced condition: uncomplicated Qualified Code(s): F10.230 - Alcohol dependence with withdrawal, uncomplicated
[2021-01-31] MEDS: PANTOprazole 40 MG in DEXTROSE 5% 100 ML IV SCH ×5 (00:43→20:30)
[2021-01-31] MEDS ORDERED: Nursing to Pharmacy Communication SCH (01:00)
[2021-01-31] MEDS: GABAPENTIN 600 MG TAB PO SCH ×2 (03:55→15:49)
--- NOTE | 2021-01-31 05:40 | Electrocardiogram Report ---
Test Reason : Blood Pressure : / mmHG Vent. Rate : 111 BPM Atrial Rate : 111 BPM P-R Int : 130 ms QRS Dur : 084 ms QT Int : 352 ms P-R-T Axes : 050 -15 016 degrees QTc Int : 478 ms Sinus tachycardia Poor R wave progression, consider anterior CO vs. lead placement vs. LVH Abnormal ECG When compared with ECG of 01-AUG-2020 19:23, No significant change was found Confirmed by Shawn Wyatt ([id number]) on 01/31/2021 5:40:05 AM Referred By: REFERRED SELF Confirmed By:Shawn Wyatt
[2021-01-31] MEDS: LACTATED RINGER'S 1,000 ML IV SCH ×2 (07:40→15:47)
[2021-01-31] MEDS: FOLIC ACID 1 MG TAB PO SCH (07:47)
[2021-01-31] MEDS: ALPRAZolam 0.25 MG TABLET PO PRN ×3 (07:47→23:44)
[2021-01-31] MEDS: THIAMINE HCL 300 MG in 0.9 % SODIUM CHLORIDE 100 ML IV SCH (07:58)
[2021-01-31 08:16] LABS: Basophils # (auto) 0.01 K/uL (0-0.2); Basophils % (auto) 0.2 %; Eosinophils # (auto) 0.09 K/uL (0-0.5); Eosinophils % (auto) 1.7 %; Hemoglobin 15.7 g/dL (14.0-18.0); Immature Granulocytes # (auto) 0.01 K/uL (0.00-0.02); Immature Granulocytes % (auto) 0.2 %; Lymphocytes # (auto) 1.66 K/uL (1.2-3.4); Mean Corpuscular Hgb Conc 34.9 g/dL (32-36); Mean Platelet Volume 10.3 fL (7.4-10.4); Monocytes # (auto) 0.34 K/uL (0.11-0.59); Monocytes % (auto) 6.3 %; Neutrophils # (auto) 3.25 K/uL (1.4-6.5); Neutrophils % (auto) 60.6 %; Platelet Count 159 K/uL (130-400); RDW Coefficient of Variation 14.3 % (11.5-14.5); RDW Standard Deviation 45.3 fL (36.4-46.3); Red Blood Count 5.23 M/uL (4.7-6.1); White Blood Count 5.36 K/uL (4.8-10.8)
[2021-01-31 08:45] LABS: BUN Creatinine Ratio 3.7 (10-20); Calcium 9.3 mg/dl (8.5-10.1); Creatinine Clr Calc Pharmacy 119.7 ml/min; Est GFR (African American) 110.2 ml/min; Est GFR (Non-African American) 95.1 ml/min; Magnesium 2.3 mg/dl (1.8-2.4); Potassium 3.8 mmol/L (3.5-5.1)
--- NOTE | 2021-01-31 10:55 | Communication Note ---
Date of Service: January 31, 2021 case reviewed with liaison, interim hx reviewed, no further evidence of GI bleed, may resume Zoloft tonight. I would continue to hold Wellbutrin due to concerns activating for anxiety in past at higher doses, seizure risk with alcohol withdrawal, and may be contributing to disinhibition when intoxicated. Patient denies SI in hospital because he doesn't want his ex to "win". He would be psychiatrically stable for rehab when medically cleared but remains at high risk for suicide if not in higher level of treatment supervision and safety plan in place. Should not be allowed to leave hospital AMA until dispo clearer.
[2021-01-31] MEDS: LORazepam 1 MG TAB PO PRN ×2 (14:48→19:57)
[2021-01-31] MEDS: SERTRALINE HCL 100 MG TABLET PO SCH (20:30)
[2021-02-01] MEDS: PANTOprazole 40 MG in DEXTROSE 5% 100 ML IV SCH ×4 (01:35→18:37)
[2021-02-01] MEDS: GABAPENTIN 600 MG TAB PO SCH (04:31)
[2021-02-01 07:48] LABS: Basophils # (auto) 0.03 K/uL (0-0.2); Basophils % (auto) 0.5 %; Eosinophils # (auto) 0.17 K/uL (0-0.5); Hematocrit (blood only) 43.4 % (42-52); Hemoglobin 14.9 g/dL (14.0-18.0); Immature Granulocytes # (auto) 0.01 K/uL (0.00-0.02); Immature Granulocytes % (auto) 0.2 %; Lymphocytes # (auto) 1.46 K/uL (1.2-3.4); Lymphocytes % (auto) 25.6 %; Mean Corpuscular Hemoglobin 29.4 pg (25-34); Mean Corpuscular Hgb Conc 34.3 g/dL (32-36); Mean Corpuscular Volume 85.8 fL (80-100); Mean Platelet Volume 9.7 fL (7.4-10.4); Monocytes # (auto) 0.58 K/uL (0.11-0.59); Monocytes % (auto) 10.2 %; Neutrophils # (auto) 3.46 K/uL (1.4-6.5); Neutrophils % (auto) 60.5 %; Platelet Count 146 K/uL (130-400); RDW Coefficient of Variation 14.5 % (11.5-14.5); RDW Standard Deviation 44.9 fL (36.4-46.3); Red Blood Count 5.06 M/uL (4.7-6.1); White Blood Count 5.71 K/uL (4.8-10.8)
--- NOTE | 2021-02-01 07:57 | Hospitalist Progress Note ---
Date of Service January 31, 2021 Assessment & Plan (1) Alcohol withdrawal syndrome: very anxious, tachycardia, hypertensive no tremors, no seizure activity continue Gabapentin taper, continue AWSS Ativan scale for active withdrawal (only needed 1mg today, most scores < 3) holding Wellbutrin per psychiatry will get him through withdrawal process and then try for alcohol rehab he is danger to himself at this time, would not be able to leave AMA will discuss options with psychiatry tomorrow (02/01) (2) Alcohol intoxication: Acute intoxication- ETOH level 162.5 on admission, had been binge drinking with intention to harm himself - Thiamine 200mg IV daily - Folic acid 1mg PO daily - LR at 125 ml per hour, stop fluids today, he is eating/drinking better and making a lot of urine (3) Hematemesis: one episode, just some streaks of blood Hemoglobin is stable he admits he was retching a lot prior to seeing the blood likely some esophagitis/gastritis from all the drinking no signs of active bleeding at this time hold on EGD (4) Alcohol use disorder: As above (5) Metabolic acidosis, increased anion gap: due to alcohol, poor food intake improving with supportive care (6) Depression: hold Wellbutrin for now per psychiatry (7) Elevated liver enzymes: Acute alcoholic elevation - resuscitate with LR - not encephalopathic - INR 1.0 - Bilirubin not elevated (8) Suicidal ideation: Patient admitted with 1:1 and suicide safe tray - can discontinue one to one as he denies suicidal thoughts he admits that he wanted to hurt himself by drinking too much a few days ago now he states that he does not want to because if he dies then his ex- girlfriend and her parents would "win" Admission and Anticipated Discharge Date Admission Date: January 29, 2021 Subjective patient is maybe a little better, d/w RN, not needing much Ativan, only got 1mg PO in addition to his Xanax TID he is eating a little more, drinking water, will stop IV fluids he again denies suicidal ideation, will remove one to one precautions at this point he does not feel like he wants to go to inpatient alcohol rehab I discussed that he is still impulsive and at risk for self harm, has binged to the point of needing hospitalized twice in two months explained that he cannot leave, I will need to speak with Dr. Reeder about options for treatment Review of Systems Review of Systems: All systems reviewed & are unremarkable except as noted in Subjective Psychiatric: + depression, + abnormal sleep pattern, + anxiety and + substance abuse; no suicidal ideation, no homicidal ideation and no paranoia Physical Exam Constitutional: well developed, well nourished, + disheveled and cooperative Neck: trachea midline, no thyromegaly Respiratory: normal respiratory effort, lungs clear to auscultation Cardiovascular: Rate/Rhythm: regular rhythm and + tachycardic Heart Sounds: normal S1 and normal S2; no murmur Vessels: no JVD Extremities: normal capillary refill; no edema Gastrointestinal (Abdomen): normal bowel sounds, soft, nontender, no hepatosplenomegaly Musculoskeletal: no cyanosis or clubbing, extremities motor strength 5/5 Skin: no rashes, warm and dry Neurologic: patellar DTR's 2+ bilat, sensation intact and PERRL, EOMI, accommodation nl, no face palsy, no dysarthria Psychiatric: Orientation: alert and oriented x 3 Affect: + anxious affect Suicidal Thoughts: denies suicidal thoughts Homicidal Thoughts: denies homicidal thoughts Hallucinations: no auditory hallucinations and no visual hallucinations Results & Data Results & Data ([facility]) Vital Signs (Past 12 Hours) Vital Signs Temp Pulse Resp BP Pulse Ox 02/01/21 06:18 36.4 C L 82 16 154/88 H 97 02/01/21 01:35 37 C 88 16 142/98 H 96 01/31/21 23:30 36.7 C 93 H 14 121/85 98 01/31/21 23:08 36.9 C 97 H 18 145/93 H 98 01/31/21 19:52 36.8 C 105 H 18 153/114 H 100 PG Care Time/CCT Total # of Minutes Spent Total Time Spent with Patient: Total time spent is greater than 50% in coordination of care (as documented) at patient's floor/unit and/or counseling patient: Coding Level of Care Code 02674 Subseq Hosp Care Lvl 2 Diagnoses Alcohol withdrawal syndrome F10.230 Complication of substance-induced condition: uncomplicated Alcohol intoxication F10.929 Complication of substance-induced condition: with unspecified complication Hematemesis K92.0 Nausea presence: unspecified Alcohol use disorder Metabolic acidosis, increased anion gap E87.2 Depression F33.2 Depression Type: major depressive disorder Major depression recurrence: recurrent Active/Remission status: currently active Major depression episode severity: severe Psychotic features: without psychotic features Elevated liver enzymes R74.8 Suicidal ideation R45.851 (1) Alcohol withdrawal syndrome Complication of substance-induced condition: uncomplicated Qualified Code(s): F10.230 - Alcohol dependence with withdrawal, uncomplicated (2) Alcohol intoxication Complication of substance-induced condition: with unspecified complication Qualified Code(s): F10.929 - Alcohol use, unspecified with intoxication, unspecified (3) Hematemesis Nausea presence: unspecified Qualified Code(s): K92.0 - Hematemesis (4) Depression Depression Type: major depressive disorder Major depression recurrence: recurrent Active/Remission status: currently active Major depression episode severity: severe Psychotic features: without psychotic features Qualified Code(s): F33.2 - Major depressive disorder, recurrent severe without psychotic features
[2021-02-01 08:29] LABS: BUN Creatinine Ratio 7.6 (10-20); Calcium 9.3 mg/dl (8.5-10.1); Creatinine Clr Calc Pharmacy 122.2 ml/min; Est GFR (African American) 112.9 ml/min; Est GFR (Non-African American) 97.4 ml/min
[2021-02-01 09:16] LABS: Magnesium 2.5 mg/dl (1.8-2.4)
[2021-02-01] MEDS: FOLIC ACID 1 MG TAB PO SCH (09:32)
[2021-02-01] MEDS: ALPRAZolam 0.25 MG TABLET PO PRN ×2 (09:32→19:37)
[2021-02-01] MEDS: THIAMINE HCL 300 MG in 0.9 % SODIUM CHLORIDE 100 ML IV SCH (09:36)
[2021-02-01 09:46] LABS: 7-Aminoclonaz, Confirm NEGATIVE ng/mL (<25); Hydro-Alp Ur, GC/MS NEGATIVE ng/mL (<25); Hydroxyethylflurazepam, Conf NEGATIVE ng/mL (<50); Hydroxymidazolam Ur, GC/MS NEGATIVE ng/mL (<50); Hydroxytriazolam NEGATIVE ng/mL (<50); Lorazepam, Ur GC/MS NEGATIVE ng/mL (<50); Nordiazepam, Confirm NEGATIVE ng/mL (<50); Oxazepam Ur, GC/MS NEGATIVE ng/mL (<50); Temazepam, Confirm NEGATIVE ng/mL (<50)
[2021-02-01] MEDS: LORazepam 1 MG TAB PO PRN (13:35)
[2021-02-01] MEDS: SERTRALINE HCL 100 MG TABLET PO SCH (20:38)
--- NOTE | 2021-02-01 22:16 | Hospitalist Progress Note ---
Date of Service February 01, 2021 Assessment & Plan (1) Alcohol withdrawal syndrome: very anxious, tachycardia, hypertensive no tremors, no seizure activity continue Gabapentin taper, continue AWSS Ativan scale for active withdrawal holding Wellbutrin per psychiatry he is stable, can try for inpatient alcohol rehab he is danger to himself at this time, would not be able to leave AMA (2) Alcohol intoxication: Acute intoxication- ETOH level 162.5 on admission, had been binge drinking with intention to harm himself - Thiamine 200mg IV daily - Folic acid 1mg PO daily - LR at 125 ml/hr initially, stopped 01/31, drinking well (3) Hematemesis: one episode, just some streaks of blood Hemoglobin is stable he admits he was retching a lot prior to seeing the blood likely some esophagitis/gastritis from all the drinking no signs of active bleeding at this time hold on EGD stop Protonix (4) Alcohol use disorder: As above start process of going to inpatient rehab (5) Metabolic acidosis, increased anion gap: due to alcohol, poor food intake improving with supportive care (6) Depression: hold Wellbutrin for now per psychiatry (7) Elevated liver enzymes: Acute alcoholic elevation - resuscitate with LR - not encephalopathic - INR 1.0 - Bilirubin not elevated (8) Suicidal ideation: Patient admitted with 1:1 and suicide safe tray - can discontinue one to one as he denies suicidal thoughts he admits that he wanted to hurt himself by drinking too much a few days ago now he states that he does not want to because if he dies then his ex- girlfriend and her parents would "win" Admission and Anticipated Discharge Date Admission Date: January 29, 2021 Subjective doing well, he called inpatient rehab for intake phone call CM making referrals hypertensive and tachycardic at times, anxious will stop Protonix drip eating a little better today Review of Systems Review of Systems: All systems reviewed & are unremarkable except as noted in Subjective Physical Exam Constitutional: well developed, well nourished and cooperative Neck: trachea midline, no thyromegaly Respiratory: normal respiratory effort, lungs clear to auscultation Cardiovascular: Rate/Rhythm: regular rhythm and + tachycardic Heart Sounds: normal S1 and normal S2; no murmur Vessels: no JVD Extremities: normal capillary refill; no edema Gastrointestinal (Abdomen): normal bowel sounds, soft, nontender, no hepatosplenomegaly Musculoskeletal: no cyanosis or clubbing, extremities motor strength 5/5 Skin: no rashes, warm and dry Neurologic: patellar DTR's 2+ bilat, sensation intact and PERRL, EOMI, acco mmodation nl, no face palsy, no dysarthria Psychiatric: Orientation: alert and oriented x 3 Affect: + anxious affect Suicidal Thoughts: denies suicidal thoughts Homicidal Thoughts: denies homicidal thoughts Hallucinations: no auditory hallucinations and no visual hallucinations Results & Data Results & Data ([facility]) Vital Signs (Past 12 Hours) Vital Signs Temp Pulse Resp BP BP Pulse Ox 02/01/21 19:39 37.0 C 109 H 14 146/94 H 97 02/01/21 17:03 36.6 C 101 H 16 131/92 96 02/01/21 15:44 36.8 C 105 H 20 136/88 99 02/01/21 13:38 36.9 C 99 H 20 126/87 97 Laboratory Results Laboratory Results - last 24 hr 01/29/21 02/01/21 02/01/21 11:35 06:31 06:31 WBC 5.71 RBC 5.06 Hgb 14.9 Hct 43.4 MCV 85.8 MCH 29.4 MCHC 34.3 RDW Std Deviation 44.9 RDW Coeff of Francois 14.5 Plt Count 146 MPV 9.7 Immature Gran % (Auto) 0.2 Neut % (Auto) 60.5 Lymph % (Auto) 25.6 [place] % (Auto) 10.2 Eos % (Auto) 3.0 Baso % (Auto) 0.5 Neut # (Auto) 3.46 Lymph # (Auto) 1.46 [place] # (Auto) 0.58 Eos # (Auto) 0.17 Baso # (Auto) 0.03 Immature Gran # (Auto) 0.01 Sodium 139 Potassium Chloride 107 Carbon Dioxide 24 Anion Gap 8.0 BUN 7 Creatinine 0.98 Est Cr Clr Drug Dosing 122.2 Est GFR ( Amer) 112.9 Est GFR (Non-Af Amer) 97.4 BUN/Creatinine Ratio 7.6 L Glucose 83 Calcium 9.3 Magnesium U OH-Alprazolam Confrm NEGATIVE 7-Amino Clonazepam NEGATIVE Ur Nordiazepam Confirm NEGATIVE U OH-ethylflurazepam NEGATIVE U Lorazepam Cnf GC/MS NEGATIVE U Oxazepam Confm GC/MS NEGATIVE Ur Temazepam Confirm NEGATIVE U OH-Triazolam Confirm NEGATIVE U OH-Midazolam Confirm NEGATIVE Drug Screen Comment SEE NOTE 02/01/21 08:48 WBC RBC Hgb Hct MCV MCH MCHC RDW Std Deviation RDW Coeff of Francois Plt Count MPV Immature Gran % (Auto) Neut % (Auto) Lymph % (Auto) [place] % (Auto) Eos % (Auto) Baso % (Auto) Neut # (Auto) Lymph # (Auto) [place] # (Auto) Eos # (Auto) Baso # (Auto) Immature Gran # (Auto) Sodium Potassium 4.0 Chloride Carbon Dioxide Anion Gap BUN Creatinine Est Cr Clr Drug Dosing Est GFR ( Amer) Est GFR (Non-Af Amer) BUN/Creatinine Ratio Glucose Calcium Magnesium 2.5 H U OH-Alprazolam Confrm 7-Amino Clonazepam Ur Nordiazepam Confirm U OH-ethylflurazepam U Lorazepam Cnf GC/MS U Oxazepam Confm GC/MS Ur Temazepam Confirm U OH-Triazolam Confirm U OH-Midazolam Confirm Drug Screen Comment Medications Administered Current Inpatient Medications Alprazolam (Alprazolam 0.25 Mg Tablet) 0.25 mg PO TID PRN PRN Reason: Anxiety Stop: 02/28/21 18:13 Last Admin: 02/01/21 19:37 Dose: 0.25 mg Documented by: Folic Acid (Folic Acid 1 Mg Tab) 1 mg PO QAM EMIR Stop: 03/01/21 08:59 Last Admin: 02/01/21 09:32 Dose: 1 mg Documented by: Gabapentin (Gabapentin 600 Mg Tab) 600 mg PO Q24H EMIR Stop: 02/02/21 02:15 Thiamine HCl 300 mg/ Sodium (Chloride) 103 mls @ 208 mls/hr IV QAM EMIR Stop: 03/01/21 08:59 Last Infusion: 02/01/21 10:08 Dose: Infused Documented by: Lorazepam (Lorazepam 1 Mg Tab) 1 - 3 mg PO UD PRN; Protocol PRN Reason: EtoH Withdrawal AWSS 6-10+ Stop: 03/01/21 15:49 Last Admin: 02/01/21 13:35 Dose: 1 mg Documented by: Sertraline HCl (Sertraline Hcl 100 Mg Tablet) 100 mg PO HS EMIR Stop: 02/28/21 20:59 Last Admin: 02/01/21 20:38 Dose: 100 mg Documented by: PG Care Time/CCT Total # of Minutes Spent Total Time Spent with Patient: Total time spent is greater than 50% in coordination of care (as documented) at patient's floor/unit and/or counseling patient: Coding Level of Care Code 35674 Subseq Hosp Care Lvl 2 Diagnoses Alcohol withdrawal syndrome F10.230 Complication of substance-induced condition: uncomplicated Alcohol intoxication F10.929 Complication of substance-induced condition: with unspecified complication Hematemesis K92.0 Nausea presence: unspecified Alcohol use disorder Metabolic acidosis, increased anion gap E87.2 Depression F33.2 Depression Type: major depressive disorder Major depression recurrence: recurrent Active/Remission status: currently active Major depression episode severity: severe Psychotic features: without psychotic features Elevated liver enzymes R74.8 Suicidal ideation R45.851 (1) Alcohol withdrawal syndrome Complication of substance-induced condition: uncomplicated Qualified Code(s): F10.230 - Alcohol dependence with withdrawal, uncomplicated (2) Alcohol intoxication Complication of substance-induced condition: with unspecified complication Qualified Code(s): F10.929 - Alcohol use, unspecified with intoxication, unspecified (3) Hematemesis Nausea presence: unspecified Qualified Code(s): K92.0 - Hematemesis (4) Depression Depression Type: major depressive disorder Major depression recurrence: recurrent Active/Remission status: currently active Major depression episode severity: severe Psychotic features: without psychotic features Qualified Code(s): F33.2 - Major depressive disorder, recurrent severe without psychotic features
[2021-02-02] MEDS ORDERED: GABAPENTIN 600 MG TAB PO SCH (02:14)
[2021-02-02] MEDS: THIAMINE HCL 300 MG in 0.9 % SODIUM CHLORIDE 100 ML IV SCH (08:53)
[2021-02-02] MEDS: FOLIC ACID 1 MG TAB PO SCH (08:54)
[2021-02-02] MEDS: ALPRAZolam 0.25 MG TABLET PO PRN (08:54)
--- NOTE | 2021-02-02 09:56 | Discharge Summary ---
Date of Service February 02, 2021 Admission HPI Per Admitting Provider 40 YOM with past medical history of ETOH abuse, and major depression, PTSD, EMD visits for agitation and combativeness, suicidal ideation in November. Patient came to the Emergency room today for throwing up blood in the setting of acute alcoholic intoxication in the attempt to try and "end it all". Patient reports that he started drinking yesterday more heavily but has been drinking to the point of inebriation for the past 5 days with Kitty Valentin. Patient has had a falling out with his girlfriend which he reports she had an and did not tell him. Patient also endorses that he has been having bouts of hematemesis which the volume varies and is intoxicated at this time so quantifying this is difficult. Patient also reports that it got worse this morning. He also takes Aleve for headaches 3-4 times per week. He does not know what causes his headaches. In the EMD he was started on AWWS protocol with gabapentin load, and a Protonix drip following a bolus. Patient will be admitted for clearance of his acute intoxication, AAWS for withdraw symptoms, GI consult for his Hematemesis, and Psych consult for his suicidal ideations and depression. He has received his COVID vaccine and his COVID test on admission is NEGATIVE. Principal Diagnosis Alcohol abuse with binge drinking, suicidal ideation Discharge Exam Constitutional well developed, well nourished and cooperative Neck trachea midline, no thyromegaly Respiratory normal respiratory effort, lungs clear to auscultation Cardiovascular Rate/Rhythm: regular rhythm and + tachycardic Heart Sounds: normal S1 and normal S2; no murmur Vessels: no JVD Extremities: normal capillary refill; no edema Gastrointestinal (Abdomen) normal bowel sounds, soft, nontender, no hepatosplenomegaly Musculoskeletal no cyanosis or clubbing, extremities motor strength 5/5 Skin no rashes, warm and dry Neurologic patellar DTR's 2+ bilat, sensation intact and PERRL, EOMI, accommodation nl, no face palsy, no dysarthria Psychiatric Orientation: alert and oriented x 3 Affect: + anxious affect Suicidal Thoughts: denies suicidal thoughts Homicidal Thoughts: denies homicidal thoughts Hallucinations: no auditory hallucinations and no visual hallucinations Discharge Data Allergies Allergy/AdvReac Type Severity Reaction Status Date / Time No Known Allergies Allergy Unverified 01/29/21 14:05 Consultations 01/29/21 18:14 Consult Gastroenterology Routine Consult Psychiatry Routine Hospital Course (1) Alcohol withdrawal syndrome: very anxious, tachycardia, hypertensive on admission no tremors, no seizure activity continue Gabapentin taper, continue AWSS Ativan scale for active withdrawal holding Wellbutrin per psychiatry - can resume now that withdrawal is completed he is stable, can try for inpatient alcohol rehab he is danger to himself at this time, would not be able to leave AMA accepted to inpatient alcohol rehab treatment (2) Alcohol intoxication: Acute intoxication- ETOH level 162.5 on admission, had been binge drinking with intention to harm himself - Thiamine 200mg IV daily - Folic acid 1mg PO daily - LR at 125 ml/hr initially, stopped 01/31, drinking well no longer intoxicated (3) Hematemesis: one episode, just some streaks of blood Hemoglobin is stable he admits he was retching a lot prior to seeing the blood likely some esophagitis/gastritis from all the drinking no signs of active bleeding at this time hold on EGD stop Protonix (4) Alcohol use disorder: As above going to inpatient rehab (5) Metabolic acidosis, increased anion gap: due to alcohol, poor food intake resolved with supportive care (6) Depression: resume Wellbutrin and Zoloft mood is improved (7) Elevated liver enzymes: Acute alcoholic elevation labs stabilized, no signs of severe alcohol hepatitis (8) Suicidal ideation: Patient admitted with 1:1 and suicide safe tray - can discontinue one to one as he denies suicidal thoughts he admits that he wanted to hurt himself by drinking too much a few days ago now he states that he does not want to because if he dies then his ex- girlfriend and her parents would "win" Total Time Total Time Spent Total Time Spent (In Minutes): 32 Total Time Includes: Examination of the Patient, Discharge Planning, Medication Reconciliation and Communication With Other Providers (psychiatry) Discharge Plan Discharge Items Patient Disposition: Drug & Alcohol Rehab Reason For Visit: HEMATEMESIS Discharge Diagnosis: Alcohol abuse Suicidal ideation Depression and anxiety Condition on Discharge: Good Goals: complete inpatient alcohol rehab Activity: Resume your previous activity Non-emergency contact: Primary Care Provider Call non-emergency contact if: you have any medication questions Follow-up/Referrals: PCP,NO [Physician] - Diet: Regular Addtl Attending Provider Instructions: Medications: no changes to home medications Patient is medically stable, completed withdraw process, vitals normal Had a reported episode of "hematemesis" but this was scant blood, likely from excessive retching, never had an issue for three days while hospitalized Pending Studies at Discharge: No Stand-Alone Forms: My [facility] Skilled Items Patient informed of condition?: Yes DNR: No Discharge Level of Care: Other Communicable Disease: No Discharge Prognosis: Stable Lines: None Urinary Catheter: No Medications and DC Order Prescriptions: New sertraline 100 mg Tablet 100 mg PO HS 30 Days Qty: 30 RF: 0 bupropion HCl 150 mg Tablet Extended Release 24 Hr 150 mg PO QAM 30 Days Qty: 30 RF: 0 alprazolam [Xanax] 0.25 mg tablet 0.25 mg PO Q8 PRN (Reason: anxiety) Qty: 60 RF: 0 Discontinued alprazolam 0.25 mg tablet 0.25 mg PO TID PRN (Reason: Anxiety) RF: 0 Discharge Orders: Discharge Order (Routine); Ordered 02/02/21 Ordered By: Sharath Olivas Admission Data Admit Date/Time: 01/29/21 15:09 Attending Provider: Sharath Olivas Admit Provider: Isaías Cadet Primary Care Provider: Rena Uriarte Other Providers: Umu Eason ; Dr Austin ; Re Shields ; Don Chin Other Interventions: Discharge Summary Assessment (RN) Last Done: 02/02/21 10:36 Coding Level of Care Code D/C Day Management >30 mins Diagnoses Alcohol withdrawal syndrome F10.230 Complication of substance-induced condition: uncomplicated Alcohol intoxication F10.929 Complication of substance-induced condition: with unspecified complication Hematemesis K92.0 Nausea presence: unspecified Alcohol use disorder Metabolic acidosis, increased anion gap E87.2 Depression F33.2 Active/Remission status: currently active Depression Type: major depressive disorder Major depression episode severity: severe Major depression recurrence: recurrent Psychotic features: without psychotic features Elevated liver enzymes R74.8 Suicidal ideation R45.851
== END 2021-02-02 10:30 | disposition alcohol treatment (31) | DRG 897 ==
LOC: ED 11:02 → SUATTDRO 15:09 → 2N 15:09 → 3N 01-31 23:29

== ENCOUNTER 2022-12-13 00:08 | Inpatient (IN) ==
[2022-12-13] MEDS ORDERED: SODIUM CHLORIDE 0.9% 1000ML 1,000 ML IV ONE (00:35)
[2022-12-13] MEDS ORDERED: THIAMINE HCL 100 MG, FOLIC ACID 1 MG in SODIUM CHLORIDE 0.9% 1000ML 1,000 ML IV STA (00:35)
[2022-12-13] MEDS ORDERED: CEROVITE ADV FORMULA TAB PO STA (00:35)
[2022-12-13] MEDS ORDERED: LORazepam 2 MG/1 ML VIAL IV STA (00:35)
[2022-12-13 01:40] LABS: Albumin Level 4.5 gm/dl (3.4-5.0); BUN Creatinine Ratio 8.2 (10-20); Bilirubin,Total 0.5 mg/dl (0.2-1.0); Calcium 10.1 mg/dl (8.6-10.3); Creatinine Clr Calc Pharmacy 138.1 ml/min; Est GFR (African American) 126.3 ml/min; Globulin 2.3 gm/dl (2.5-4.0); Potassium 2.9 mmol/L (3.5-5.1); Total Protein 6.8 gm/dl (6.0-8.3)
[2022-12-13] MEDS ORDERED: POTASSIUM CHLORIDE / WTR 10 MEQ/100 ML PLCT IV ONE (01:49)
--- NOTE | 2022-12-13 01:59 | Emergency Department Note ---
Impression & Plan Alcohol withdrawal, Hypokalemia Admit to the hospitalist ED Provider Note NAME: JENNI CHOW AGE: 42 SEX: M ARRIVES VIA: Ambulance INFORMANT: Patient ED PROVIDER(S): Bernice Cifuentes DO CHIEF COMPLAINT: Withdrawing from alcohol PLAN: [facility] MEDICAL DECISION MAKING: This is a 42-year-old male patient who describes himself as an alcoholic. He states that he is currently drinking 1 gallon of vodka daily. He would like to detox from alcohol and had his last drink approximately 10 hours ago. He has detoxed on his own before and knows how difficult and dangerous it can be with retching, shaking and hallucinating. Laboratory studies revealed a blood alcohol level of 216. Potassium was found to be low at 2.9. Transaminases were elevated. Total bilirubin was normal. There was no significant leukocytosis or anemia. Wendover level was found to be less than 1. Patient was treated with IV normal saline as well as banana bag. He was given IV Zofran as well as IV potassium replacement. Patient was given IV Ativan. Despite these medications, the patient continued to hallucinate and hear voices. I discussed the case with the [facility] Hospitalist and they will evaluate for further management and inpatient care. Triage Nursing notes reviewed and agree with them. Prior medical records reviewed Vital Signs: reviewed and remarkable for no significant abnormalities Differential diagnosis: ER treatment provided: Cardiac monitoring Twelve-lead EKG IV normal saline bolus IV banana bag IV Ativan IV Zofran IV K rider Diagnostics interpreted by me: ECG: Sinus tachycardia at a rate of [address] segment elevation or signs of ischemia. QTc was within normal limits. There is no ectopy. Cardiac Monitoring: Sinus tachycardia at 112 Laboratory studies: See below HPI: 42/M arrives for evaluation of alcohol withdrawal. Patient describes drinking 1 gallon of vodka per day over the past month. His last drink was approximately 10 hours ago. He describes feeling shaky and believes he is delusional as he is hearing voices. He is concerned that he will start to retch, shake and have worsening hallucinations. He has withdrawn before. PAST MEDICAL HISTORY:See Below; patient had a previous suicide attempt in 2001 where he swallowed pills and razor blades and required intra-abdominal surgery for resection of his bowel. PAST SURGICAL HISTORY:See Below FAMILY HISTORY:See Below SOCIAL HISTORY:See Below HOME MEDICATIONS:See list ALLERGIES:See list VITALS:See Below PHYSICAL EXAMINATION: HEENT: Head - normocephalic and atraumatic Pupils are equal, round, and reactive to light. Extraocular eye muscles are intact, and sclera are anic teric. Nose - moist nasal mucosa without discharge. Mouth - moist buccal mucosa. Oropharynx is nonerythematous and there is no tonsillar exudate or edema noted. Neck: Supple; no JVD, nuchal rigidity, cervical lymphadenopathy, or auscultated bruits. Heart: Tachycardic rate and regular rhythm. There is a normal S1 and S2 with no murmurs, clicks, or gallops appreciated. Lungs: Clear to auscultation bilaterally with no wheezes, rales, or rhonchi. Abdomen: Soft, completely nontender, nondistended, with good bowel sounds. There are no palpable pulsatile masses or hepatosplenomegaly. There is no guarding, rigidity, or rebound noted. Extremities: No evidence of cyanosis, clubbing, or edema. There are easily palpable peripheral pulses. Skin: warm and diaphoretic with good turgor and no rashes. ED COURSE: Times/Reassessments: 0015: Patient was evaluated in room C2. A complete history and physical was performed. Twelve-lead EKG was obtained. An order was placed for continuous cardiac monitoring. Patient was in a normal sinus rhythm at a rate of 106 patient was bolused with a liter of normal saline solution. He was given a dose of IV Zofran for nausea. He was started on IV banana bag. He was given a dose of IV Ativan to control withdrawal symptoms. Patient was noted to have a low potassium. A IV K rider was started. I have personally spent greater than 45 minutes of critical care time in the direct management of this patient. This includes bedside care, interpretation of diagnostic studies, and testing, discussion with consultants, patient, and family members, and other required patient management activities. This 45 minutes is in excess of all separately billable procedures. Bernice Cifuentes DO Past Med/Surg History Medical History Alcohol abuse Alcohol intoxication Alcohol withdrawal syndrome Alcoholic intoxication Depression Depression History of suicide attempt Suicidal ideation Suicidal ideation Social History Smoking Status: Former smoker Tobacco Type: Cigarettes Smoking End Date: "a decade ago"; Second Hand Exposure: No; Do You Dip or Chew Tobacco: No; Hx Alcohol Use: Yes Alcohol type: hard liquor Hx Substance Use: No Preferred Language: Upper Sorbian Communication Ability: Effective Sales Operations Analyst Required: No Beliefs That Will Affect Care: None Current Living Situation: Significant Other Current Living Situation Comment: recently broke up, came to ED from hotel via ems Other Information That Helps Us Care for You: No Feels Safe at Home: Yes Safety Concerns: Feels Safe At This Time Assistive Devices: None Allergies Allergies Allergy/AdvReac Type Severity Reaction Status Date / Time No Known Allergies Allergy Verified 12/13/22 00:44 Home Meds Home Medications Medication Instructions Recorded Confirmed lithium carbonate 300 mg 300 mg PO BID 12/13/22 12/13/22 tablet,extended release naltrexone 50 mg tablet 50 mg PO DAILY PRN NEEDED 12/13/22 12/13/22 quetiapine 100 mg tablet 300 mg PO HS 12/13/22 12/13/22 Previous Rx's Medication Instructions Recorded bupropion HCl 150 mg 24 hr tablet, 150 mg PO QAM 30 days #30 tabs 02/02/21 extended release sertraline 100 mg tablet 100 mg PO HS 30 days #30 tabs 02/02/21 Results & Data (ED) Vital Signs Vital Signs - 24 hr 12/13/22 00:18 12/13/22 00:24 12/13/22 00:24 Temperature 36.8 C 36.8 C Temperature Source Oral Oral Pulse Rate 119 H 123 H Pulse Rate [Apical] 123 H Respiratory Rate 21 21 Respiratory Effort / Characteristics Non-Labored Non-Labored Respiratory Depth Normal Normal Respiratory Pattern Regular Regular Blood Pressure 144/102 H Blood Pressure [Right Arm] 144/102 H Blood Pressure Mean 116 Blood Pressure Mean [Right Arm] 116 Blood Pressure Position [Right Arm] Pulse Oximetry 95 95 Oxygen Delivery Method Room Air Room Air Sepsis Recent Fever Within 48 Hours No Sepsis New/Unexplained Change in Mental Status No Sepsis Action Taken by Nursing No Action Required 12/13/22 00:35 12/13/22 00:18 12/13/22 00:30 Temperature Temperature Source Pulse Rate 117 H 112 H Pulse Rate [Apical] Respiratory Rate 24 23 Respiratory Effort / Characteristics Respiratory Depth Respiratory Pattern Blood Pressure 134/91 Blood Pressure [Right Arm] Blood Pressure Mean 105 Blood Pressure Mean [Right Arm] Blood Pressure Position [Right Arm] Pulse Oximetry 97 95 94 Oxygen Delivery Method Room Air Room Air Room Air Sepsis Recent Fever Within 48 Hours Sepsis New/Unexplained Change in Mental Status Sepsis Action Taken by Nursing 12/13/22 01:00 12/13/22 01:30 12/13/22 02:00 Temperature Temperature Source Pulse Rate 112 H 106 H 110 H Pulse Rate [Apical] Respiratory Rate 24 21 25 H Respiratory Effort / Characteristics Respiratory Depth Respiratory Pattern Blood Pressure 138/89 124/80 Blood Pressure [Right Arm] Blood Pressure Mean 105 94 Blood Pressure Mean [Right Arm] Blood Pressure Position [Right Arm] Pulse Oximetry 94 93 Oxygen Delivery Method Room Air Room Air Sepsis Recent Fever Within 48 Hours Sepsis New/Unexplained Change in Mental Status Sepsis Action Taken by Nursing 12/13/22 02:30 12/13/22 03:00 12/13/22 03:00 Temperature Temperature Source Pulse Rate 105 H 108 H Pulse Rate [Apical] 108 H Respiratory Rate 24 18 17 Respiratory Effort / Characteristics Non-Labored Spontaneous Respiratory Depth Normal Respiratory Pattern Blood Pressure 110/72 109/64 Blood Pressure [Right Arm] 109/64 Blood Pressure Mean 84 79 Blood Pressure Mean [Right Arm] 79 Blood Pressure Position [Right Arm] Lying Pulse Oximetry 97 Oxygen Delivery Method Room Air Sepsis Recent Fever Within 48 Hours Sepsis New/Unexplained Change in Mental Status Sepsis Action Taken by Nursing Laboratory Data 12/13/22 01:06 Lab Results 12/13/22 12/13/22 12/13/22 Range/Units 01:06 01:06 01:06 WBC (4.8-10.8) K/ul RBC (4.70-6.10) M/uL Hgb (14.0-18.0) g/dl Hct (42.0-52.0) % MCV (80.0-100.0) fL MCH (25.0-34.0) pg MCHC (32.0-36.0) g/dL RDW Std Deviation (36.4-46.3) fL RDW Coeff of Francois (11.5-14.5) % Plt Count (130-400) K/uL MPV (9.4-12.4) fL Immature Gran % (Auto) % Neut % (Auto) % Lymph % (Auto) % Stewart % (Auto) % Eos % (Auto) % Baso % (Auto) % Neut # (Auto) (1.40-6.50) K/uL Lymph # (Auto) (1.2-3.4) K/uL Stewart # (Auto) (0.11-0.59) K/uL Eos # (Auto) (0-0.50) K/uL Baso # (Auto) (0-0.2) K/uL Immature Gran # (Auto) (0.01-0.20) K/uL Sodium 141 (136-145) mmol/L Potassium 2.9 L (3.5-5.1) mmol/L Chloride 103 (98-107) mmol/L Carbon Dioxide 18 L (21-32) mmol/L Anion Gap 20 H (3-11) BUN 7 (6-23) mg/dl Creatinine 0.85 (0.6-1.4) mg/dl Est Cr Clr Drug Dosing 138.1 ml/min Est GFR ( Amer) 126.3 ml/min Est GFR (Non-Af Amer) 109.0 ml/min BUN/Creatinine Ratio 8.2 L (10-20) Glucose 114 H (70-99(Fasting)) mg/dl POC Glucose (70-99) mg/dl Calcium 10.1 (8.6-10.3) mg/dl Magnesium 1.9 (1.7-2.4) mg/dl Total Bilirubin 0.5 (0.2-1.0) mg/dl AST 155 H (13-39) U/L ALT 89 H (7-52) U/L Alkaline Phosphatase 79 (34-104) U/L Total Protein 6.8 (6.0-8.3) gm/dl Albumin 4.5 (3.4-5.0) gm/dl Globulin 2.3 L (2.5-4.0) gm/dl Albumin/Globulin Ratio 2.0 (0.9-2) Wendover < 0.1 L (0.6-1.2) mmol/L Ethyl Alcohol mg/dL 216.3 H (<10.0) mg/dl SARS-CoV-2, RNA, NAAT (NEGATIVE) 12/13/22 12/13/22 12/13/22 Range/Units 01:06 01:06 01:11 WBC 5.36 (4.8-10.8) K/ul RBC 4.89 (4.70-6.10) M/uL Hgb 14.7 (14.0-18.0) g/dl Hct 40.7 L (42.0-52.0) % MCV 83.2 (80.0-100.0) fL MCH 30.1 (25.0-34.0) pg MCHC 36.1 H (32.0-36.0) g/dL RDW Std Deviation 42.0 (36.4-46.3) fL RDW Coeff of Francois 13.9 (11.5-14.5) % Plt Count 129 L (130-400) K/uL MPV 9.7 (9.4-12.4) fL Immature Gran % (Auto) 0.2 % Neut % (Auto) 51.4 % Lymph % (Auto) 34.0 % Stewart % (Auto) 13.2 % Eos % (Auto) 0.6 % Baso % (Auto) 0.6 % Neut # (Auto) 2.76 (1.40-6.50) K/uL Lymph # (Auto) 1.82 (1.2-3.4) K/uL Stewart # (Auto) 0.71 H (0.11-0.59) K/uL Eos # (Auto) 0.03 (0-0.50) K/uL Baso # (Auto) 0.03 (0-0.2) K/uL Immature Gran # (Auto) 0.01 (0.01-0.20) K/uL Sodium (136-145) mmol/L Potassium (3.5-5.1) mmol/L Chloride (98-107) mmol/L Carbon Dioxide (21-32) mmol/L Anion Gap (3-11) BUN (6-23) mg/dl Creatinine (0.6-1.4) mg/dl Est Cr Clr Drug Dosing ml/min Est GFR ( Amer) ml/min Est GFR (Non-Af Amer) ml/min BUN/Creatinine Ratio (10-20) Glucose (70-99(Fasting)) mg/dl POC Glucose 112 H (70-99) mg/dl Calcium (8.6-10.3) mg/dl Magnesium (1.7-2.4) mg/dl Total Bilirubin (0.2-1.0) mg/dl AST (13-39) U/L ALT (7-52) U/L Alkaline Phosphatase (34-104) U/L Total Protein (6.0-8.3) gm/dl Albumin (3.4-5.0) gm/dl Globulin (2.5-4.0) gm/dl Albumin/Globulin Ratio (0.9-2) Wendover (0.6-1.2) mmol/L Ethyl Alcohol mg/dL (<10.0) mg/dl SARS-CoV-2, RNA, NAAT NEGATIVE (NEGATIVE) Administered Medications Chlordiazepoxide HCl (Chlordiazepoxide Hcl 25 Mg Cap) 50 mg PO Q6H [facility]IR Stop: 12/13/22 23:16 Last Admin: 12/13/22 05:38 Dose: 50 mg Documented By: SHAUNA Sodium Chloride (Nss 1000ml) 1,000 mls @ 125 mls/hr IV .Q8H EMIR Stop: 12/13/22 20:33 Last Admin: 12/13/22 05:37 Dose: 125 mls/hr Documented By: SHAUNA Potassium Chloride (K Fred / Wtr) 10 meq in 100 mls @ 100 mls/hr IV Q1H EMIR Stop: 12/13/22 06:59 Last Admin: 12/13/22 06:30 Dose: 100 mls/hr Documented By: Infusion: 12/13/22 06:30 Dose: 100 mls/hr Documented By: Admin: 12/13/22 05:37 Dose: 100 mls/hr Documented By: SHAUNA Discontinued Medications Sodium Chloride (Nss 1000ml) 1,000 mls @ 999 mls/hr IV .Q1H1M ONE Stop: 12/13/22 01:35 Last Infusion: 12/13/22 01:51 Dose: 0 mls/hr Documented By: Admin: 12/13/22 00:59 Dose: 999 mls/hr Documented By: LATESHA Thiamine HCl 100 mg/ Folic (Acid 1 mg/ Sodium Chloride) 1,001.2 mls @ 500 mls/hr IV .Q2H1M STA; Protocol Stop: 12/13/22 02:35 Last Infusion: 12/13/22 02:59 Dose: 0 mls/hr Documented By: Admin: 12/13/22 00:59 Dose: 500 mls/hr Documented By: LATESHA Potassium Chloride (K Fred / Wtr) 10 meq in 100 mls @ 100 mls/hr IV ONE ONE Stop: 12/13/22 02:48 Last Infusion: 12/13/22 04:07 Dose: 0 mls/hr Documented By: Admin: 12/13/22 02:57 Dose: 100 mls/hr Documented By: LATESHA Lorazepam (Lorazepam 2 Mg/1 Ml Vial) 2 mg IV NOW STA Stop: 12/13/22 00:36 Last Admin: 12/13/22 01:00 Dose: 2 mg Documented By: LATESHA Multivitamins/Minerals (Cerovite Adv Formula Tab) 1 tab PO ONE STA Stop: 12/13/22 00:36 Last Admin: 12/13/22 01:00 Dose: 1 tab Documented By: LATESHA Potassium Chloride (Potassium Chloride Crtab 20 Meq Tabcr) 40 meq PO NOW STA Stop: 12/13/22 03:24 Last Admin: 12/13/22 04:37 Dose: 40 meq Documented By: SHAUNA Discharge Plan Visit Data Chief Complaint: Alcohol Withdrawal Stated Complaint: Hearing Voices ED Provider: Bernice Cifuentes Discharge Problem: Alcohol withdrawal, Hypokalemia Patient Disposition: Admitted As Inpatient Discharge Instructions Interventions: ED Discharge Assessment Last Done: 12/13/22 04:06
[2022-12-13 03:22] LABS: Basophils # (auto) 0.03 K/uL (0-0.2); Basophils % (auto) 0.6 %; Eosinophils # (auto) 0.03 K/uL (0-0.50); Eosinophils % (auto) 0.6 %; Hematocrit (blood only) 40.7 % (42.0-52.0); Hemoglobin 14.7 g/dl (14.0-18.0); Immature Granulocytes # (auto) 0.01 K/uL (0.01-0.20); Immature Granulocytes % (auto) 0.2 %; Lymphocytes # (auto) 1.82 K/uL (1.2-3.4); Mean Corpuscular Hemoglobin 30.1 pg (25.0-34.0); Mean Corpuscular Hgb Conc 36.1 g/dL (32.0-36.0); Mean Corpuscular Volume 83.2 fL (80.0-100.0); Mean Platelet Volume 9.7 fL (9.4-12.4); Monocytes # (auto) 0.71 K/uL (0.11-0.59); Monocytes % (auto) 13.2 %; Neutrophils # (auto) 2.76 K/uL (1.40-6.50); Neutrophils % (auto) 51.4 %; Platelet Count 129 K/uL (130-400); RDW Coefficient of Variation 13.9 % (11.5-14.5); Red Blood Count 4.89 M/uL (4.70-6.10); White Blood Count 5.36 K/ul (4.8-10.8)
[2022-12-13] MEDS ORDERED: POTASSIUM CHLORIDE CRTAB 20 MEQ TABCR PO STA (03:23)
[2022-12-13] MEDS ORDERED: MAGNESIUM SULFATE / D5W 1 GM/100 ML BAG IV ONE (03:24)
[2022-12-13 03:50] LABS: Magnesium 1.9 mg/dl (1.7-2.4)
[2022-12-13] MEDS ORDERED: chlordiazePOXIDE ALCOHOL WITHDRAWL 50MG PO STA (04:34)
[2022-12-13] MEDS ORDERED: LORazepam 2 MG/1 ML VIAL IV PRN ×2 (04:34)
[2022-12-13] MEDS ORDERED: NITROGLYCERIN SL 0.4 MG/TAB TAB SL PRN (04:34)
[2022-12-13] MEDS ORDERED: Ativan IV Alcohol Withdrawal--Active Protocol IV PRN (04:34)
[2022-12-13] MEDS ORDERED: ACETAMINOPHEN 325 MG TAB PO PRN (04:34)
--- NOTE | 2022-12-13 05:12 | History and Physical Report ---
DATE OF ADMISSION: 12/13/2022. CHIEF COMPLAINT: Alcohol withdrawal. HISTORY OF PRESENT ILLNESS: This is a 42-year-old male with past medical history significant PTSD, generalized anxiety disorder, questionable bipolar disorder, who presents with alcohol withdrawal. The patient says he is drinking 1 gallon of vodka since last 2 months. Prior to that, he used to drink one- fifth of vodka daily. He wants to get detoxed, that is the reason he came here. He says last drink was yesterday seems more than 10 hours ago. He states he was talking to people in the room who were not there, he was hallucinating. He received Ativan and somewhat drowsy, but able to answer the questions. Denies any headache. No dizziness, no blurred visions, no earache, no runny nose, no sore throat, no cough, no fevers. Appetite okay. No chest pain, no shortness of breath. Currently, no nausea or vomiting or abdominal pain. Normal bowel and bladder movements. ALLERGIES: No known drug allergies. PAST MEDICAL HISTORY: As mentioned above. PAST SURGICAL HISTORY: No past surgical history on file. MEDICATIONS: The patient says he is only taking bupropion and Zoloft. FAMILY HISTORY: Significant for he was raised in foster care. REVIEW OF SYSTEMS: As per HPI. Rest of review of systems is negative. PHYSICAL EXAMINATION: GENERAL: The patient is of moderate build, not in acute distress. VITAL SIGNS: Temperature 36.8, pulse 108, respiratory rate 17, blood pressure 109/64, oxygen 97% on room air. HEENT: Pupils equal, round and reactive to light. Oral mucosa somewhat dry. NECK: No JVD, no neck masses. CARDIOVASCULAR: S1 and S2 heard. Tachycardia. No murmurs. RESPIRATORY SYSTEM: Normal AP diameter. No accessory muscle use. No wheezing, no crackles. ABDOMEN: Soft, bowel sounds present, nontender, no distention. CENTRAL NERVOUS SYSTEM: Alert and oriented. Speech is clear. No facial droop. Obeys simple commands. Moves extremities. EXTREMITIES: No edema, no erythema. LABORATORY DATA: Sodium 141, potassium 2.9, chloride 103, CO2 of 18, BUN 7, creatinine 0.8, serum glucose 114, calcium 10.1, total bilirubin 0.5, AST 155, ALT 89, alkaline phosphatase 79. Spreckels less than 0.1. Ethyl alcohol 216. SARS-CoV-2 rapid test negative. EKG: Normal sinus rhythm, sinus tachycardia with fusion complexes at a rate of 106, QTc of 478. ASSESSMENT AND PLAN: This is a 42-year-old male who presents with alcohol withdrawal. 1. Alcohol withdrawal: Drinking 1 gallon of vodka since last couple of months. Prior to that, used to drink one-fifth of vodka. Wanted to be detoxed. Will do alcohol withdrawal protocol with Librium and IV Ativan p.r.n. Received banana bag in the ER. Will continue with IV thiamine, IV folic acid, p.o. multivitamins. Closely monitor in the tele floor. 2. Hypokalemia: Will replace. Will follow labs. 3. Metabolic acidosis: Mostly from alcoholism. Will follow the repeat labs in the a.m. 4. History of PTSD and generalized anxiety disorder: Continue his bupropion and sertraline. Questionable bipolar disorder. The patient says he was advised to take lithium, but is not taking it. Looks like he is also on Seroquel.. Will confirm his medications once he is more stable and also may need psychiatry consult when stable. 5. Deep venous thrombosis prophylaxis: Placed him on Lovenox. Monitor the platelets. . DISPOSITION: Closely monitor in the tele floor. Level 1 full code. Expect to discharge home and follow with family doctor. Job ID: [id number] [facility]
[2022-12-13] MEDS: SODIUM CHLORIDE 0.9% 1000ML 1,000 ML IV SCH ×2 (05:37→13:16)
[2022-12-13] MEDS: POTASSIUM CHLORIDE / WTR 10 MEQ/100 ML PLCT IV SCH ×2 (05:37→06:30)
[2022-12-13] MEDS: chlordiazePOXIDE HCl 25 MG CAP PO SCH ×4 (05:38→23:40)
[2022-12-13] MEDS ORDERED: THIAMINE HCL 100 MG in SYRINGE 9 ML IV SCH (09:00)
[2022-12-13] MEDS ORDERED: FOLIC ACID 1 MG in SYRINGE 9.8 ML IV SCH (09:00)
[2022-12-13 09:02] LABS: Basophils # (auto) 0.03 K/uL (0-0.2); Basophils % (auto) 0.8 %; Eosinophils # (auto) 0.03 K/uL (0-0.50); Eosinophils % (auto) 0.8 %; Hemoglobin 12.5 g/dl (14.0-18.0); Lymphocytes # (auto) 1.47 K/uL (1.2-3.4); Lymphocytes % (auto) 40.1 %; Mean Corpuscular Hemoglobin 29.3 pg (25.0-34.0); Mean Corpuscular Hgb Conc 35.7 g/dL (32.0-36.0); Mean Corpuscular Volume 82.2 fL (80.0-100.0); Mean Platelet Volume 9.1 fL (9.4-12.4); Monocytes # (auto) 0.31 K/uL (0.11-0.59); Monocytes % (auto) 8.4 %; Neutrophils # (auto) 1.83 K/uL (1.40-6.50); Neutrophils % (auto) 49.9 %; Platelet Count 98 K/uL (130-400); Platelet Estimate Decreased (Normal); RDW Coefficient of Variation 14.1 % (11.5-14.5); RDW Standard Deviation 41.4 fL (36.4-46.3); Red Blood Count 4.26 M/uL (4.70-6.10); White Blood Count 3.67 K/ul (4.8-10.8)
[2022-12-13] MEDS: buPROPion XL 150 MG TABCR PO SCH (09:02)
[2022-12-13] MEDS: ENOXAPARIN INJ 40 MG/0.4 ML SYR SQ SCH (09:02)
[2022-12-13] MEDS: CEROVITE ADV FORMULA TAB PO SCH (09:03)
[2022-12-13 09:46] LABS: Calcium 8.8 mg/dl (8.6-10.3); Magnesium 1.5 mg/dl (1.7-2.4); Potassium 3.2 mmol/L (3.5-5.1)
[2022-12-13 09:52] LABS: BUN Creatinine Ratio 7.7 (10-20); Creatinine Clr Calc Pharmacy 162.9 ml/min; Est GFR (African American) 130.9 ml/min; Est GFR (Non-African American) 112.9 ml/min; Phosphorus 2.7 mg/dl (2.5-4.9)
--- NOTE | 2022-12-13 14:00 | Hospitalist Progress Note ---
Date of Service December 13, 2022 Assessment & Plan (1) Alcohol withdrawal: (2) Alcohol use disorder: (3) Hypokalemia: (4) Hypomagnesemia: Plan 42 year old male with h/o PTSD, PIETRO, alcohol abuse who presented to the ED on 12/12 seeking alcohol detox Alcohol abuse with withdrawal - Alc level 200s. Has been drinking 1 gallon of vodka for past 2 months, last drink was on 12/12 - Continue alcohol withdrawal protocol with librium taper, ativan prn, MV, folate, thiamine - Pt seeking detox- CM for alcohol rehab Hypokalemia- repleted, recheck in am Hypomagnesemia- repleted, recheck in am H/o PTSD, PIETRO ?bipolar- on zoloft, and welbutrin. states he is not taking lithium- lithium level low. Will consult psych for his meds adjustment DVT ppx- sc lovenox Dispo- Continue current management for alc withdrawal. Plan for alcohol rehab at discharge Admission and Anticipated Discharge Date Admission Date: December 13, 2022 Subjective Patient was seen and examined at bedside. He feels better. Denies any fever, chills, chest pain, shortness of breath, N/V. Review of Systems Review of Systems: All systems reviewed & are unremarkable except as noted in Subjective Physical Exam Physical Exam: General: Lying comfortably in bed, not in distress, on room air HEENT: EOMI, SAPNA, MMM Chest: Clear breath sounds bilaterally, no wheezes or crackles CVS: Tachycardic, normal heart sounds, no murmur Abdomen: Soft, non tender, not distended, normal bowel sounds Neuro: Awake, alert, oriented, conversing well, non focal Extremities: No cyanosis, clubbing or edema. Mild hand tremors + Results & Data Results & Data Vital Signs (Past 12 Hours) Vital Signs Temp Pulse Pulse Resp BP BP Pulse Ox 12/13/22 12:22 36.8 C 101 H 18 141/92 H 96 12/13/22 09:00 101 H 12/13/22 08:00 36.5 C 104 H 19 123/73 96 12/13/22 04:35 103 H 12/13/22 04:34 12/13/22 04:34 37 C 110 H 18 120/96 97 12/13/22 04:40 37 C 110 H 18 120/96 97 05/19/23 03:00 108 H 17 109/64 12/13/22 03:00 108 H 18 109/64 97 12/13/22 02:30 105 H 24 110/72 12/13/22 02:00 110 H 25 H Pulse Ox O2 Del Method O2 Del Method 12/13/22 12:22 Room Air 12/13/22 09:00 12/13/22 08:00 Room Air 12/13/22 04:35 12/13/22 04:34 97 Room Air 12/13/22 04:34 Room Air 12/13/22 04:40 Room Air 12/13/22 03:00 12/13/22 03:00 Room Air 12/13/22 02:30 12/13/22 02:00 Laboratory Results Short CBC 12/13/22 12/13/22 Range/Units 01:06 07:51 WBC 5.36 3.67 L (4.8-10.8) K/ul Hgb 14.7 12.5 L (14.0-18.0) g/dl Hct 40.7 L 35.0 L (42.0-52.0) % Plt Count 129 L 98 L (130-400) K/uL BMP 12/13/22 12/13/22 01:06 07:51 Sodium 141 141 Potassium 2.9 L 3.2 L Chloride 103 108 H Carbon Dioxide 18 L 21 BUN 7 6 Creatinine 0.85 0.78 Glucose 114 H 91 Calcium 10.1 8.8 Liver Function 12/13/22 Range/Units 01:06 Total Bilirubin 0.5 (0.2-1.0) mg/dl AST 155 H (13-39) U/L ALT 89 H (7-52) U/L Alkaline Phosphatase 79 (34-104) U/L Albumin 4.5 (3.4-5.0) gm/dl Medications Administered Current Inpatient Medications Acetaminophen (Acetaminophen 325 Mg Tab) 650 mg PO Q4H PRN PRN Reason: Pain or Fever Stop: 01/12/23 04:33 Bupropion HCl (Bupropion Xl 150 Mg Tabcr) 150 mg PO QAM [facility] Stop: 01/12/23 08:59 Last Admin: 12/13/22 09:02 Dose: 150 mg Chlordiazepoxide HCl (Chlordiazepoxide Hcl 25 Mg Cap) 50 mg PO Q8H [facility] Stop: 12/14/22 23:16 Chlordiazepoxide HCl (Chlordiazepoxide Hcl 25 Mg Cap) 50 mg PO Q6H [facility] Stop: 12/13/22 23:16 Last Admin: 12/13/22 11:24 Dose: 50 mg Chlordiazepoxide HCl (Chlordiazepoxide Hcl 25 Mg Cap) 25 mg PO Q8H [facility] Stop: 12/15/22 23:16 Chlordiazepoxide HCl (Chlordiazepoxide Hcl 10 Mg Cap) 10 mg PO Q12H [facility] Stop: 12/16/22 22:01 Enoxaparin Sodium (Enoxaparin Inj 40 Mg/0.4 Ml Syr) 40 mg SQ Q24H [facility] Stop: 01/12/23 08:59 Last Admin: 12/13/22 09:02 Dose: 40 mg Folic Acid (Folic Acid 1 Mg Tab) 1 mg PO DAILY [facility] Stop: 01/13/23 08:59 Sodium Chloride (Nss 1000ml) 1,000 mls @ 125 mls/hr IV .Q8H [facility] Stop: 12/13/22 20:33 Last Admin: 12/13/22 13:16 Dose: 125 mls/hr Lorazepam (Lorazepam 2 Mg/1 Ml Vial) 3 mg IV ONCE PRN; Protocol PRN Reason: EtOH Withdrawal AWSS Score 10+ Lorazepam (Lorazepam 2 Mg/1 Ml Vial) 2 mg IV UD PRN; Protocol PRN Reason: EtOH Withdrawal AWSS Score 8,9 Stop: 01/12/23 04:33 Lorazepam (Lorazepam 2 Mg/1 Ml Vial) 1 mg IV UD PRN; Protocol PRN Reason: EtOH Withdrawal AWSS Score 6,7 Stop: 01/12/23 04:33 Multivitamins/Minerals (Cerovite Adv Formula Tab) 1 tab PO QAM [facility] Stop: 01/12/23 08:59 Last Admin: 12/13/22 09:03 Dose: 1 tab Nitroglycerin (Nitroglycerin Sl 0.4 Mg/Tab Tab) 0.4 mg SL Q5M PRN PRN Reason: Chest Pain Stop: 01/12/23 04:33 Sertraline HCl (Sertraline Hcl 100 Mg Tablet) 100 mg PO HS [facility] Stop: 01/12/23 20:59 Thiamine HCl (Thiamine Hcl 100 Mg Tab) 100 mg PO DAILY [facility] Stop: 01/13/23 08:59
--- NOTE | 2022-12-13 15:26 | Electrocardiogram Report ---
Test Reason : Blood Pressure : / mmHG Vent. Rate : 106 BPM Atrial Rate : 106 BPM P-R Int : 132 ms QRS Dur : 096 ms QT Int : 360 ms P-R-T Axes : 054 -08 020 degrees QTc Int : 478 ms Sinus tachycardia Nonspecific ST abnormality Low voltage QRS Abnormal ECG When compared with ECG of 29-JAN-2021 16:34, Fusion complexes are now Present Confirmed by David Holman ([id number] on 12/13/2022 3:26:20 PM Referred By: REFERRED SELF Confirmed By:Hugo Holman
[2022-12-13] MEDS: MAGNESIUM OXIDE 400 MG TAB PO SCH (19:45)
[2022-12-13] MEDS: SERTRALINE HCL 100 MG TABLET PO SCH (19:45)
[2022-12-13] MEDS: LORazepam 2 MG/1 ML VIAL IV PRN (19:55)
[2022-12-14] MEDS: chlordiazePOXIDE HCl 25 MG CAP PO SCH ×3 (06:24→21:24)
[2022-12-14 06:47] LABS: Hematocrit (blood only) 36.8 % (42.0-52.0); Hemoglobin 13.5 g/dl (14.0-18.0); Mean Corpuscular Hemoglobin 30.1 pg (25.0-34.0); Mean Corpuscular Hgb Conc 36.7 g/dL (32.0-36.0); Mean Platelet Volume 9.4 fL (9.4-12.4); Platelet Count 71 K/uL (130-400); RDW Coefficient of Variation 13.8 % (11.5-14.5); Red Blood Count 4.49 M/uL (4.70-6.10)
[2022-12-14 07:05] LABS: BUN Creatinine Ratio 6.9 (10-20); Calcium 8.2 mg/dl (8.6-10.3); Creatinine Clr Calc Pharmacy 176.2 ml/min; Est GFR (African American) 135.2 ml/min; Est GFR (Non-African American) 116.7 ml/min; Magnesium 1.5 mg/dl (1.7-2.4); Potassium 2.9 mmol/L (3.5-5.1)
[2022-12-14] MEDS ORDERED: MAGNESIUM SULFATE / D5W 1 GM/100 ML BAG IV ONE (07:48)
[2022-12-14] MEDS: ENOXAPARIN INJ 40 MG/0.4 ML SYR SQ SCH (08:44)
[2022-12-14] MEDS: POTASSIUM CHLORIDE / WTR 10 MEQ/100 ML PLCT IV SCH ×2 (08:44→10:27)
[2022-12-14] MEDS: CEROVITE ADV FORMULA TAB PO SCH (08:45)
[2022-12-14] MEDS: MAGNESIUM OXIDE 400 MG TAB PO SCH ×2 (08:45→21:25)
[2022-12-14] MEDS: FOLIC ACID 1 MG TAB PO SCH (08:45)
[2022-12-14] MEDS: THIAMINE HCL 100 MG TAB PO SCH (08:45)
[2022-12-14] MEDS: buPROPion XL 150 MG TABCR PO SCH (08:45)
[2022-12-14] MEDS: POTASSIUM CHLORIDE 10 MEQ TABCR PO SCH ×2 (08:45→21:25)
--- NOTE | 2022-12-14 10:21 | Psychiatric Consultation ---
Date of Consultation December 14, 2022 Impression / Recommendations Impression This is a 42 yo man with a history of major depression and alcohol use admitted medically. Diagnostically consistent with alcohol use disorder as well as unspecified depression and anxiety likely a combination of substance-induced as well as MDD and PIETRO. History not convincing for any history of cory/bipolar disorder and has been on unopposed SSRIs in the past without any emergence of cory. Acute risk of self-harm is low given denial of SI and no longer with intoxication. Chronic risk of self-harm and harm to others is slightly increased due to substance use as well as history of psychiatric hospitalizations and prior suicide attempts with substance use treatment being the most significant modifiable risk factor to reduce acute and chronic risk. He is interested in residential treatment at this time. (1) Alcohol withdrawal: (2) Alcohol use disorder: (3) Depression: Depression Type: major depressive disorder Major depression recurrence: recurrent Active/Remission status: currently active Major depression episode severity: severe Psychotic features: without psychotic features Qualified Code(s): F33.2 - Major depressive disorder, recurrent severe without psychotic features (4) Anxiety: Plan -He's interested in residential substance use treatment -Continue sertraline 100mg HS, this could be increased to 150mg HS in the future if anxiety persists as he reduces his alcohol use -Hold Wellbutrin until outside of withdrawal window for seizure risk, then restart to Wellbutrin XL 150mg qd -Would hold Seroquel during acute withdrawal window d/t seizure risk, could then restart at 100mg HS and if needed can be increased up to 300mg HS -Do not restart [place] -Continue AWSS as well as thiamine and folic acid -Consider starting naltrexone 50mg qd for alcohol use disorder once LFTs stabilize (typically once LFTs are no more than 2 times above normal limit) Psych History Identifying Data 42 yo man with history of alcohol use, depression, anxiety, prior psychiatric hospitalizations admitted medically for alcohol withdrawal. Psychiatry consulted for medication recommendations by hospitalist service. Chief Complaint "I guess ok". History of Present Illness Lorenzo was admitted for alcohol withdrawal. States he's been drinking an increased amount recently of about 1 gallon of vodka per day over the last 1-2 months. Likes that alcohol helps to "calm me". Endorses history of depression but feels his mood recently has been "ok". Denies any current or recent SI. History of naltrexone but only took it for a few days and then stopped, doesn't recall any specific side effects. Attended residential alcohol use treatment years ago and found it helpful. No current outpatient psychiatry or therapy providers. Has been taking sertraline and Wellbutrin and finds these helpful. Duane RINCON also on seroquel 300mg HS (unclear if he's been taking this). Was started on [place] during an inpatient psychiatric admission at [facility] while he was admitted for depression last month for one week but hasn't been taking this recently. Denies any history of cory. He's motivated for and interested in residential substance use treatment. Allergies Allergy/AdvReac Type Severity Reaction Status Date / Time No Known Allergies Allergy Verified 12/13/22 00:44 Home Medications Medication Instructions Recorded Confirmed Type bupropion HCl 150 mg 24 hr tablet, 150 mg PO QAM 30 days #30 tabs 02/02/21 12/13/22 Rx extended release sertraline 100 mg tablet 100 mg PO HS 30 days #30 tabs 02/02/21 12/13/22 Rx lithium carbonate 300 mg 300 mg PO BID 12/13/22 12/13/22 History tablet,extended release naltrexone 50 mg tablet 50 mg PO DAILY PRN NEEDED 12/13/22 12/13/22 History quetiapine 100 mg tablet 300 mg PO HS 12/13/22 12/13/22 History Patient History Medical History Alcohol abuse Alcohol intoxication Alcohol withdrawal syndrome Alcoholic intoxication Depression Depression Elevated liver enzymes History of suicide attempt Metabolic acidosis, increased anion gap Suicidal ideation Suicidal ideation Social History Smoking Status: Former smoker Tobacco Type: Cigarettes Smoking End Date: "a decade ago"; Second Hand Exposure: No; Do You Dip or Chew Tobacco: No; Hx Alcohol Use: Yes Alcohol type: hard liquor Hx Substance Use: No Preferred Language: Lebanese Communication Ability: 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 Beliefs That Will Affect Care: None Current Living Situation: Significant Other Current Living Situation Comment: recently broke up, came to ED from hotel via ems Other Information That Helps Us Care for You: No Feels Safe at Home: Yes Safety Concerns: Feels Safe At This Time Assistive Devices: None Physical Exam Psychiatric: Orientation: alert, oriented to person and oriented to place Eye Contact: + fair eye contact Motor Behavior: no abnormal motor movements Speech: normal rate/rhythm/volume of speech Affect: + constricted affect Mood: no depressed mood and no anxious mood Thought Process: goal directed thought process Thought Content: reality based without delusions Suicidal Thoughts: denies suicidal thoughts Homicidal Thoughts: denies homicidal thoughts Hallucinations: no auditory hallucinations and no visual hallucinations Insight: + fair insight Judgment: + limited judgement Vital Signs (Past 24 Hours): Last Vital Signs Temp 37.1 C 12/14/22 08:15 Pulse 92 H 12/14/22 08:15 Resp 19 12/14/22 08:15 BP 134/93 12/14/22 08:15 Pulse Ox 95 12/14/22 08:15 O2 Del Method Room Air 12/14/22 08:15 Review of Systems All systems reviewed & are unremarkable except as noted in HPI & below (tired) Results & Data (PSY) Medications Administered Bupropion HCl (Bupropion Xl 150 Mg Tabcr) 150 mg PO QAM [facility] Stop: 01/12/23 08:59 Last Admin: 12/14/22 08:45 Dose: 150 mg Documented By: Admin: 12/13/22 09:02 Dose: 150 mg Documented By: MELINA Chlordiazepoxide HCl (Chlordiazepoxide Hcl 25 Mg Cap) 50 mg PO Q8H [facility] Stop: 12/14/22 23:16 Last Admin: 12/14/22 06:24 Dose: 50 mg Documented By: MARY Enoxaparin Sodium (Enoxaparin Inj 40 Mg/0.4 Ml Syr) 40 mg SQ Q24H [facility] Stop: 01/12/23 08:59 Last Admin: 12/14/22 08:44 Dose: 40 mg Documented By: Admin: 12/13/22 09:02 Dose: 40 mg Documented By: DELBERTF Folic Acid (Folic Acid 1 Mg Tab) 1 mg PO DAILY [facility] Stop: 01/13/23 08:59 Last Admin: 12/14/22 08:45 Dose: 1 mg Documented By: DELBERTF Lorazepam (Lorazepam 2 Mg/1 Ml Vial) 1 mg IV UD PRN; Protocol PRN Reason: EtOH Withdrawal AWSS Score 6,7 Stop: 01/12/23 04:33 Last Admin: 12/13/22 19:55 Dose: 1 mg Documented By: MARY Magnesium Oxide (Magnesium Oxide 400 Mg Tab) 400 mg PO BID [facility] Stop: 01/12/23 20:59 Last Admin: 12/14/22 08:45 Dose: 400 mg Documented By: Admin: 12/13/22 19:45 Dose: 400 mg Documented By: MARY Multivitamins/Minerals (Cerovite Adv Formula Tab) 1 tab PO QAM [facility] Stop: 01/12/23 08:59 Last Admin: 12/14/22 08:45 Dose: 1 tab Documented By: Admin: 12/13/22 09:03 Dose: 1 tab Documented By: MELINA Potassium Chloride (Potassium Chloride 10 Meq Tabcr) 10 meq PO BID [facility] Stop: 12/15/22 08:59 Last Admin: 12/14/22 08:45 Dose: 10 meq Documented By: MELINA Sertraline HCl (Sertraline Hcl 100 Mg Tablet) 100 mg PO HS [facility] Stop: 01/12/23 20:59 Last Admin: 12/13/22 19:45 Dose: 100 mg Documented By: MARY Thiamine HCl (Thiamine Hcl 100 Mg Tab) 100 mg PO DAILY [facility] Stop: 01/13/23 08:59 Last Admin: 12/14/22 08:45 Dose: 100 mg Documented By: MELINA Coding Level of Care Code 17489 IN/OBS CONSULT LVL 4,60M Diagnoses Alcohol withdrawal F10.939 Alcohol use disorder F10.90 Depression F33.2 Depression Type: major depressive disorder Major depression recurrence: recurrent Active/Remission status: currently active Major depression episode severity: severe Psychotic features: without psychotic features Anxiety F41.9 Time Spent (min) 60
--- NOTE | 2022-12-14 11:14 | Hospitalist Progress Note ---
Date of Service December 14, 2022 Assessment & Plan (1) Alcohol withdrawal: (2) Alcohol use disorder: (3) Hypokalemia: (4) Hypomagnesemia: Plan 42 year old male with h/o PTSD, PIETRO, alcohol abuse who presented to the ED on 12/12 seeking alcohol detox Alcohol abuse with withdrawal - Alc level 200s. Has been drinking 1 gallon of vodka for past 2 months, last drink was on 12/12 - Continue alcohol withdrawal protocol with librium taper, ativan prn, MV, folate, thiamine - Pt seeking detox- CM for alcohol rehab Hypokalemia- repleted, recheck in am Hypomagnesemia- repleted, recheck in am H/o PTSD, PIETRO- on zoloft, and welbutrin. - Seen by psychiatry-no indication for lithium. Continue sertraline-this can be increased to 150 mg at bedtime in future if anxiety persists. - Hold Wellbutrin until after the withdrawal window for seizure risk, then restart Wellbutrin 150 mg daily - Consider starting naltrexone 50 Mg daily for alcohol use disorder once LFT stabilizes Thrombocytopenia- ?From alcohol abuse. Monitor. No signs of bleeding DVT ppx- sc lovenox Dispo- Continue current management for alc withdrawal. Plan for alcohol rehab at discharge Admission and Anticipated Discharge Date Admission Date: December 13, 2022 Subjective Patient was seen and examined at bedside. He feels slightly better. Still has shakiness. Denies any hallucinations. He has been getting intermittent sleep but denies need for any medications. He would like to go to rehab at discharge. Regarding his lithium, he states he was started on on the few weeks ago, he took for a week and then discontinued because he did not like it. Review of Systems Review of Systems: All systems reviewed & are unremarkable except as noted in Subjective Physical Exam Physical Exam: General: Lying comfortably in bed, not in distress, on room air HEENT: EOMI, SAPNA, MMM Chest: Clear breath sounds bilaterally, no wheezes or crackles CVS: Tachycardic, normal heart sounds, no murmur Abdomen: Soft, non tender, not distended, normal bowel sounds Neuro: Awake, alert, oriented, conversing well, non focal Extremities: No cyanosis, clubbing or edema. Mild hand tremors + Results & Data Results & Data Vital Signs (Past 12 Hours) Vital Signs Temp Pulse Pulse Resp BP Pulse Ox O2 Del Method 12/14/22 10:56 36.7 C 101 H 18 127/93 93 Room Air 12/14/22 10:30 92 H 12/14/22 08:15 37.1 C 92 H 19 134/93 95 Room Air 12/14/22 04:45 36.9 C 96 H 18 126/88 95 Room Air 12/13/22 23:30 37 C 92 H 20 127/91 98 Room Air Laboratory Results Short CBC 12/14/22 Range/Units 06:34 WBC 3.10 L (4.8-10.8) K/ul Hgb 13.5 L (14.0-18.0) g/dl Hct 36.8 L (42.0-52.0) % Plt Count 71 L (130-400) K/uL BMP 12/14/22 06:34 Sodium 140 Potassium 2.9 L Chloride 103 Carbon Dioxide 27 BUN 5 L Creatinine 0.72 Glucose 117 H Calcium 8.2 L Medications Administered Current Inpatient Medications Acetaminophen (Acetaminophen 325 Mg Tab) 650 mg PO Q4H PRN PRN Reason: Pain or Fever Stop: 01/12/23 04:33 Bupropion HCl (Bupropion Xl 150 Mg Tabcr) 150 mg PO QAM [facility] Stop: 01/12/23 08:59 Last Admin: 12/14/22 08:45 Dose: 150 mg Chlordiazepoxide HCl (Chlordiazepoxide Hcl 25 Mg Cap) 50 mg PO Q8H [facility] Stop: 12/14/22 23:16 Last Admin: 12/14/22 06:24 Dose: 50 mg Chlordiazepoxide HCl (Chlordiazepoxide Hcl 25 Mg Cap) 25 mg PO Q8H [facility] Stop: 12/15/22 23:16 Chlordiazepoxide HCl (Chlordiazepoxide Hcl 10 Mg Cap) 10 mg PO Q12H [facility] Stop: 12/16/22 22:01 Enoxaparin Sodium (Enoxaparin Inj 40 Mg/0.4 Ml Syr) 40 mg SQ Q24H [facility] Stop: 01/12/23 08:59 Last Admin: 12/14/22 08:44 Dose: 40 mg Folic Acid (Folic Acid 1 Mg Tab) 1 mg PO DAILY [facility] Stop: 01/13/23 08:59 Last Admin: 12/14/22 08:45 Dose: 1 mg Lorazepam (Lorazepam 2 Mg/1 Ml Vial) 3 mg IV ONCE PRN; Protocol PRN Reason: EtOH Withdrawal AWSS Score 10+ Lorazepam (Lorazepam 2 Mg/1 Ml Vial) 2 mg IV UD PRN; Protocol PRN Reason: EtOH Withdrawal AWSS Score 8,9 Stop: 01/12/23 04:33 Lorazepam (Lorazepam 2 Mg/1 Ml Vial) 1 mg IV UD PRN; Protocol PRN Reason: EtOH Withdrawal AWSS Score 6,7 Stop: 01/12/23 04:33 Last Admin: 12/13/22 19:55 Dose: 1 mg Magnesium Oxide (Magnesium Oxide 400 Mg Tab) 400 mg PO BID [facility] Stop: 01/12/23 20:59 Last Admin: 12/14/22 08:45 Dose: 400 mg Multivitamins/Minerals (Cerovite Adv Formula Tab) 1 tab PO QAM [facility] Stop: 01/12/23 08:59 Last Admin: 12/14/22 08:45 Dose: 1 tab Nitroglycerin (Nitroglycerin Sl 0.4 Mg/Tab Tab) 0.4 mg SL Q5M PRN PRN Reason: Chest Pain Stop: 01/12/23 04:33 Potassium Chloride (Potassium Chloride 10 Meq Tabcr) 10 meq PO BID [facility] Stop: 12/15/22 08:59 Last Admin: 12/14/22 08:45 Dose: 10 meq Sertraline HCl (Sertraline Hcl 100 Mg Tablet) 100 mg PO HS [facility] Stop: 01/12/23 20:59 Last Admin: 12/13/22 19:45 Dose: 100 mg Thiamine HCl (Thiamine Hcl 100 Mg Tab) 100 mg PO DAILY [facility] Stop: 01/13/23 08:59 Last Admin: 12/14/22 08:45 Dose: 100 mg
[2022-12-14] MEDS: SERTRALINE HCL 100 MG TABLET PO SCH (21:25)
[2022-12-15] MEDS: chlordiazePOXIDE HCl 25 MG CAP PO SCH ×3 (06:20→22:14)
[2022-12-15 07:05] LABS: Hematocrit (blood only) 39.6 % (42.0-52.0); Hemoglobin 13.9 g/dl (14.0-18.0); Mean Corpuscular Hemoglobin 29.8 pg (25.0-34.0); Mean Corpuscular Hgb Conc 35.1 g/dL (32.0-36.0); Mean Platelet Volume 9.6 fL (9.4-12.4); Platelet Count 86 K/uL (130-400); RDW Coefficient of Variation 13.8 % (11.5-14.5); RDW Standard Deviation 42.9 fL (36.4-46.3); Red Blood Count 4.66 M/uL (4.70-6.10); White Blood Count 4.18 K/ul (4.8-10.8)
[2022-12-15 07:29] LABS: Albumin Globulin Ratio 1.6 (0.9-2); Albumin Level 3.6 gm/dl (3.4-5.0); BUN Creatinine Ratio 9.4 (10-20); Bilirubin,Total 0.5 mg/dl (0.2-1.0); Calcium 8.9 mg/dl (8.6-10.3); Creatinine Clr Calc Pharmacy 138.1 ml/min; Est GFR (African American) 126.3 ml/min; Globulin 2.2 gm/dl (2.5-4.0); Magnesium 2.1 mg/dl (1.7-2.4); Phosphorus 2.1 mg/dl (2.5-4.9); Potassium 3.7 mmol/L (3.5-5.1); Total Protein 5.8 gm/dl (6.0-8.3)
[2022-12-15] MEDS ORDERED: POTASSIUM PHOS 3 MMOL/1 ML INFUSION IV STA (08:43)
[2022-12-15] MEDS ORDERED: POTASSIUM PHOSPHATE 24 MMOL in SODIUM CHLORIDE 0.9% 500 ML IV ONE (09:30)
[2022-12-15] MEDS: LORazepam 2 MG/1 ML VIAL IV PRN ×2 (10:16→19:38)
[2022-12-15] MEDS: ENOXAPARIN INJ 40 MG/0.4 ML SYR SQ SCH (10:16)
[2022-12-15] MEDS: THIAMINE HCL 100 MG TAB PO SCH (10:16)
[2022-12-15] MEDS: FOLIC ACID 1 MG TAB PO SCH (10:17)
[2022-12-15] MEDS: MAGNESIUM OXIDE 400 MG TAB PO SCH ×2 (10:17→19:38)
[2022-12-15] MEDS: CEROVITE ADV FORMULA TAB PO SCH (10:17)
--- NOTE | 2022-12-15 14:51 | Hospitalist Progress Note ---
Date of Service December 15, 2022 Assessment & Plan (1) Alcohol withdrawal: Plan: 42 year old male with h/o PTSD, PIETRO, alcohol abuse who presented to the ED on 12/12 seeking alcohol detox Alcohol abuse with withdrawal -Alcohol level 200s. Has been drinking 1 gallon of vodka for past 2 months, last drink was on 12/12 - Continue alcohol withdrawal protocol with librium taper, ativan prn, MV, folate, thiamine - Pt seeking detox- CM for alcohol rehab -Clinically much better and has minimal withdrawal symptoms as of today -Will ask for PT and OT evaluation -Waiting to go to alcohol rehab likely as an inpatient (2) Alcohol use disorder: Plan: As above (3) Hypokalemia: Plan: Electrolyte abnormalities Has significant hypokalemia, hypomagnesemia and hypophosphatemia Will be replaced both via IV and oral route We will monitor electrolytes (4) Hypomagnesemia: Plan Other significant medical problems are as follows: H/o PTSD, PIETRO- on zoloft, and welbutrin. - Seen by psychiatry-no indication for lithium. Continue sertraline-this can be increased to 150 mg at bedtime in future if anxiety persists. - Hold Wellbutrin until after the withdrawal window for seizure risk, then restart Wellbutrin 150 mg daily - Consider starting naltrexone 50 Mg daily for alcohol use disorder once LFT stabilizes Thrombocytopenia- ?From alcohol abuse. Monitor. No signs of bleeding DVT ppx- sc lovenox Dispo- Continue current management for alc withdrawal. Plan for alcohol rehab at discharge Admission and Anticipated Discharge Date Admission Date: December 13, 2022 Subjective 12/15/2022 The patient was seen and examined in telemetry unit He has been feeling much better and the withdrawal symptoms are improved Still has minimal tremor with outstretched hands No palpitation, shortness of breath Review of Systems Review of Systems: All systems reviewed and are unremarkable except as noted below Neurologic: Tremors involving the outstretched hands Physical Exam Physical Exam: Lying in bed comfortably Constitutional: well developed, well nourished, + ill appearing and + obese Eyes: PERRL, conjunctivae normal, anicteric sclerae ENMT: external ear and nose normal, oropharynx normal Neck: trachea midline, no thyromegaly Respiratory: no respiratory distress Auscultation: lungs clear to auscultation bilaterally Cardiovascular: Rate/Rhythm: regular rate and regular rhythm; not tachycardic Heart Sounds: normal S1 and normal S2; no murmur Extremities: no edema Gastrointestinal (Abdomen): Inspection/Auscultation: normal bowel sounds; abdomen not distended Percussion/Palpation: abdomen soft; abdomen nontender Musculoskeletal: No acute arthritis involving any joint Neurologic: Alert, awake and oriented x3, has tremors involving the outstretched hands. Generally weak without any focal neurodeficit Lymphatic: no cervical or axillary lymphadenopathy Results & Data Results & Data Vital Signs (Past 12 Hours) Vital Signs Temp Pulse Pulse Resp BP Pulse Ox O2 Del Method 12/15/22 12:33 70 18 153/69 H 100 Room Air 12/15/22 11:34 36.7 C 86 16 128/89 94 Room Air 12/15/22 09:36 51 L 12/15/22 07:09 36.7 C 71 16 121/83 96 Room Air 12/15/22 03:39 36.5 C 82 18 127/91 954 H Room Air Laboratory Results Short CBC 12/15/22 Range/Units 06:47 WBC 4.18 L (4.8-10.8) K/ul Hgb 13.9 L (14.0-18.0) g/dl Hct 39.6 L (42.0-52.0) % Plt Count 86 L (130-400) K/uL BMP 12/15/22 06:47 Sodium 141 Potassium 3.7 D Chloride 105 Carbon Dioxide 32 BUN 8 Creatinine 0.85 Glucose 113 H Calcium 8.9 Liver Function 12/15/22 Range/Units 06:47 Total Bilirubin 0.5 (0.2-1.0) mg/dl AST 210 H (13-39) U/L ALT 250 H (7-52) U/L Alkaline Phosphatase 82 (34-104) U/L Albumin 3.6 (3.4-5.0) gm/dl Medications Administered Current Inpatient Medications Acetaminophen (Acetaminophen 325 Mg Tab) 650 mg PO Q4H PRN PRN Reason: Pain or Fever Stop: 01/12/23 04:33 Bupropion HCl (Bupropion Xl 150 Mg Tabcr) 150 mg PO QAM [facility] Stop: 01/12/23 08:59 Last Admin: 12/14/22 08:45 Dose: 150 mg Chlordiazepoxide HCl (Chlordiazepoxide Hcl 25 Mg Cap) 25 mg PO Q8H [facility] Stop: 12/15/22 23:16 Last Admin: 12/15/22 06:20 Dose: 25 mg Chlordiazepoxide HCl (Chlordiazepoxide Hcl 10 Mg Cap) 10 mg PO Q12H [facility] Stop: 12/16/22 22:01 Enoxaparin Sodium (Enoxaparin Inj 40 Mg/0.4 Ml Syr) 40 mg SQ Q24H [facility] Stop: 01/12/23 08:59 Last Admin: 12/15/22 10:16 Dose: 40 mg Folic Acid (Folic Acid 1 Mg Tab) 1 mg PO DAILY [facility] Stop: 01/13/23 08:59 Last Admin: 12/15/22 10:17 Dose: 1 mg Potassium Phosphate 24 mmol/ (Sodium Chloride) 508 mls @ 88 mls/hr IV TODAY@0930 ONE Stop: 12/15/22 15:16 Last Admin: 12/15/22 10:17 Dose: 88 mls/hr Lorazepam (Lorazepam 2 Mg/1 Ml Vial) 3 mg IV ONCE PRN; Protocol PRN Reason: EtOH Withdrawal AWSS Score 10+ Lorazepam (Lorazepam 2 Mg/1 Ml Vial) 2 mg IV UD PRN; Protocol PRN Reason: EtOH Withdrawal AWSS Score 8,9 Stop: 01/12/23 04:33 Lorazepam (Lorazepam 2 Mg/1 Ml Vial) 1 mg IV UD PRN; Protocol PRN Reason: EtOH Withdrawal AWSS Score 6,7 Stop: 01/12/23 04:33 Last Admin: 12/15/22 10:16 Dose: 1 mg Magnesium Oxide (Magnesium Oxide 400 Mg Tab) 400 mg PO BID [facility] Stop: 01/12/23 20:59 Last Admin: 12/15/22 10:17 Dose: 400 mg Multivitamins/Minerals (Cerovite Adv Formula Tab) 1 tab PO QAM [facility] Stop: 01/12/23 08:59 Last Admin: 12/15/22 10:17 Dose: 1 tab Nitroglycerin (Nitroglycerin Sl 0.4 Mg/Tab Tab) 0.4 mg SL Q5M PRN PRN Reason: Chest Pain Stop: 01/12/23 04:33 Sertraline HCl (Sertraline Hcl 100 Mg Tablet) 100 mg PO HS [facility] Stop: 01/12/23 20:59 Last Admin: 12/14/22 21:25 Dose: 100 mg Thiamine HCl (Thiamine Hcl 100 Mg Tab) 100 mg PO DAILY [facility] Stop: 01/13/23 08:59 Last Admin: 12/15/22 10:16 Dose: 100 mg
[2022-12-15] MEDS: SERTRALINE HCL 100 MG TABLET PO SCH (19:38)
[2022-12-16 07:18] LABS: Basophils # (auto) 0.02 K/uL (0-0.2); Basophils % (auto) 0.4 %; Eosinophils # (auto) 0.08 K/uL (0-0.50); Eosinophils % (auto) 1.6 %; Hematocrit (blood only) 39.4 % (42.0-52.0); Hemoglobin 13.9 g/dl (14.0-18.0); Immature Granulocytes # (auto) 0.04 K/uL (0.01-0.20); Immature Granulocytes % (auto) 0.8 %; Lymphocytes # (auto) 1.79 K/uL (1.2-3.4); Lymphocytes % (auto) 34.7 %; Mean Corpuscular Hemoglobin 29.8 pg (25.0-34.0); Mean Corpuscular Hgb Conc 35.3 g/dL (32.0-36.0); Mean Corpuscular Volume 84.4 fL (80.0-100.0); Mean Platelet Volume 9.4 fL (9.4-12.4); Monocytes # (auto) 0.57 K/uL (0.11-0.59); Neutrophils # (auto) 2.66 K/uL (1.40-6.50); Neutrophils % (auto) 51.5 %; Platelet Count 114 K/uL (130-400); RDW Coefficient of Variation 14.4 % (11.5-14.5); RDW Standard Deviation 43.8 fL (36.4-46.3); Red Blood Count 4.67 M/uL (4.70-6.10); White Blood Count 5.16 K/ul (4.8-10.8)
[2022-12-16 07:45] LABS: Calcium 8.9 mg/dl (8.6-10.3); Magnesium 2.1 mg/dl (1.7-2.4); Potassium 3.4 mmol/L (3.5-5.1)
[2022-12-16 07:55] LABS: BUN Creatinine Ratio 12.8 (10-20); Creatinine Clr Calc Pharmacy 136.5 ml/min; Est GFR (African American) 125.7 ml/min; Est GFR (Non-African American) 108.5 ml/min; Phosphorus 3.6 mg/dl (2.5-4.9)
[2022-12-16] MEDS ORDERED: POTASSIUM CHLORIDE CRTAB 20 MEQ TABCR PO STA (08:21)
[2022-12-16] MEDS: MAGNESIUM OXIDE 400 MG TAB PO SCH ×2 (08:35→20:33)
[2022-12-16] MEDS: THIAMINE HCL 100 MG TAB PO SCH (08:36)
[2022-12-16] MEDS: CEROVITE ADV FORMULA TAB PO SCH (08:37)
[2022-12-16] MEDS: FOLIC ACID 1 MG TAB PO SCH (08:37)
[2022-12-16] MEDS: ENOXAPARIN INJ 40 MG/0.4 ML SYR SQ SCH (08:37)
--- NOTE | 2022-12-16 15:12 | Hospitalist Progress Note ---
Date of Service December 16, 2022 Assessment & Plan (1) Alcohol withdrawal: Plan: 42 year old male with h/o PTSD, PIETRO, alcohol abuse who presented to the ED on 12/12 seeking alcohol detox Alcohol abuse with withdrawal -Alcohol level 200s. Has been drinking 1 gallon of vodka for past 2 months, last drink was on 12/12 - Continue alcohol withdrawal protocol with librium taper, ativan prn, MV, folate, thiamine - Pt seeking detox- CM for alcohol rehab -Clinically much better and has minimal withdrawal symptoms as of today -Will ask for PT and OT evaluation -Waiting to go to alcohol rehab likely as an inpatient -We will get PT and OT evaluation and the patient is waiting to go to rehab as an inpatient -Remains medically stable without any significant symptoms of withdrawal (2) Alcohol use disorder: Plan: As above (3) Hypokalemia: Plan: Electrolyte abnormalities Has significant hypokalemia, hypomagnesemia and hypophosphatemia Will be replaced both via IV and oral route We will monitor electrolytes-potassium remains low at 3.4 and supplemented (4) Hypomagnesemia: Plan: Normalized Plan Other significant medical problems are as follows: H/o PTSD, PIETRO- on zoloft, and welbutrin. - Seen by psychiatry-no indication for lithium. Continue sertraline-this can be increased to 150 mg at bedtime in future if anxiety persists. - Hold Wellbutrin until after the withdrawal window for seizure risk, then restart Wellbutrin 150 mg daily - Consider starting naltrexone 50 Mg daily for alcohol use disorder once LFT stabilizes Thrombocytopenia- ?From alcohol abuse. Monitor. No signs of bleeding DVT ppx- sc lovenox Dispo- Continue current management for alc withdrawal. Plan for alcohol rehab at discharge Admission and Anticipated Discharge Date Admission Date: December 13, 2022 Subjective 12/15/2022 The patient was seen and examined in telemetry unit He has been feeling much better and the withdrawal symptoms are improved Still has minimal tremor with outstretched hands No palpitation, shortness of breath 12/16/2022 The patient was seen and examined in telemetry unit He remains stable and almost free of any withdrawal symptoms No confusion and no tremors Waiting to go to inpatient rehab Review of Systems Review of Systems: All systems reviewed and are unremarkable except as noted below Neurologic: Tremors involving the outstretched hands Physical Exam Physical Exam: Lying in bed comfortably Constitutional: well developed, well nourished, + ill appearing and + obese Eyes: PERRL, conjunctivae normal, anicteric sclerae ENMT: external ear and nose normal, oropharynx normal Neck: trachea midline, no thyromegaly Respiratory: no respiratory distress Auscultation: lungs clear to auscultation bilaterally Cardiovascular: Rate/Rhythm: regular rate and regular rhythm; not tachycardic Heart Sounds: normal S1 and normal S2; no murmur Extremities: no edema Gastrointestinal (Abdomen): Inspection/Auscultation: normal bowel sounds; abdomen not distended Percussion/Palpation: abdomen soft; abdomen nontender Musculoskeletal: No acute arthritis involving any joint Neurologic: Alert, awake and oriented x3. No focal sensory or motor deficit appreciated Lymphatic: no cervical or axillary lymphadenopathy Results & Data Results & Data Vital Signs (Past 12 Hours) Vital Signs Temp Pulse Pulse Resp BP Pulse Ox O2 Del Method 12/16/22 15:02 36.7 C 80 16 106/69 93 Room Air 12/16/22 12:20 36.6 C 98 H 19 114/81 97 Room Air 12/16/22 08:00 75 12/16/22 07:55 36.9 C 79 18 127/91 95 Room Air 12/16/22 03:21 37.0 C 77 18 106/68 94 Room Air Laboratory Results Short CBC 12/16/22 Range/Units 06:50 WBC 5.16 (4.8-10.8) K/ul Hgb 13.9 L (14.0-18.0) g/dl Hct 39.4 L (42.0-52.0) % Plt Count 114 L (130-400) K/uL BMP 12/16/22 06:50 Sodium 141 Potassium 3.4 L Chloride 107 Carbon Dioxide 28 BUN 11 Creatinine 0.86 Glucose 91 Calcium 8.9 Medications Administered Current Inpatient Medications Acetaminophen (Acetaminophen 325 Mg Tab) 650 mg PO Q4H PRN PRN Reason: Pain or Fever Stop: 01/12/23 04:33 Bupropion HCl (Bupropion Xl 150 Mg Tabcr) 150 mg PO QAM [facility] Stop: 01/12/23 08:59 Last Admin: 12/14/22 08:45 Dose: 150 mg Chlordiazepoxide HCl (Chlordiazepoxide Hcl 10 Mg Cap) 10 mg PO Q12H [facility] Stop: 12/16/22 22:01 Last Admin: 12/16/22 10:16 Dose: 10 mg Enoxaparin Sodium (Enoxaparin Inj 40 Mg/0.4 Ml Syr) 40 mg SQ Q24H [facility] Stop: 01/12/23 08:59 Last Admin: 12/16/22 08:37 Dose: 40 mg Folic Acid (Folic Acid 1 Mg Tab) 1 mg PO DAILY [facility] Stop: 01/13/23 08:59 Last Admin: 12/16/22 08:37 Dose: 1 mg Lorazepam (Lorazepam 2 Mg/1 Ml Vial) 3 mg IV ONCE PRN; Protocol PRN Reason: EtOH Withdrawal AWSS Score 10+ Lorazepam (Lorazepam 2 Mg/1 Ml Vial) 2 mg IV UD PRN; Protocol PRN Reason: EtOH Withdrawal AWSS Score 8,9 Stop: 01/12/23 04:33 Lorazepam (Lorazepam 2 Mg/1 Ml Vial) 1 mg IV UD PRN; Protocol PRN Reason: EtOH Withdrawal AWSS Score 6,7 Stop: 01/12/23 04:33 Last Admin: 12/15/22 19:38 Dose: 1 mg Magnesium Oxide (Magnesium Oxide 400 Mg Tab) 400 mg PO BID [facility] Stop: 01/12/23 20:59 Last Admin: 12/16/22 08:35 Dose: 400 mg Multivitamins/Minerals (Cerovite Adv Formula Tab) 1 tab PO QAM [facility] Stop: 01/12/23 08:59 Last Admin: 12/16/22 08:37 Dose: 1 tab Nitroglycerin (Nitroglycerin Sl 0.4 Mg/Tab Tab) 0.4 mg SL Q5M PRN PRN Reason: Chest Pain Stop: 01/12/23 04:33 Sertraline HCl (Sertraline Hcl 100 Mg Tablet) 100 mg PO HS [facility] Stop: 01/12/23 20:59 Last Admin: 12/15/22 19:38 Dose: 100 mg Thiamine HCl (Thiamine Hcl 100 Mg Tab) 100 mg PO DAILY [facility] Stop: 01/13/23 08:59 Last Admin: 12/16/22 08:36 Dose: 100 mg
[2022-12-16] MEDS: SERTRALINE HCL 100 MG TABLET PO SCH (20:34)
[2022-12-17] MEDS: FOLIC ACID 1 MG TAB PO SCH (08:45)
[2022-12-17] MEDS: ENOXAPARIN INJ 40 MG/0.4 ML SYR SQ SCH (08:45)
[2022-12-17] MEDS: THIAMINE HCL 100 MG TAB PO SCH (08:46)
[2022-12-17] MEDS: MAGNESIUM OXIDE 400 MG TAB PO SCH (08:46)
[2022-12-17] MEDS: CEROVITE ADV FORMULA TAB PO SCH (08:46)
--- NOTE | 2022-12-17 14:39 | Hospitalist Progress Note ---
Date of Service December 17, 2022 Assessment & Plan (1) Alcohol withdrawal: Plan: 42 year old male with h/o PTSD, PIETRO, alcohol abuse who presented to the ED on 12/12 seeking alcohol detox Alcohol abuse with withdrawal -Alcohol level 200s. Has been drinking 1 gallon of vodka for past 2 months, last drink was on 12/12 - Continue alcohol withdrawal protocol with librium taper, ativan prn, MV, folate, thiamine - Pt seeking detox- CM for alcohol rehab -Clinically much better and has minimal withdrawal symptoms as of today -Will ask for PT and OT evaluation -Waiting to go to alcohol rehab likely as an inpatient -We will get PT and OT evaluation and the patient is waiting to go to rehab as an inpatient -Remains medically stable without any significant symptoms of withdrawal Ready to be discharged to inpatient facility for alcohol rehab Remains medically stable without any withdrawal symptoms (2) Alcohol use disorder: Plan: As above Will need inpatient rehab (3) Hypokalemia: Plan: Electrolyte abnormalities Has significant hypokalemia, hypomagnesemia and hypophosphatemia Will be replaced both via IV and oral route We will monitor electrolytes-potassium remains low at 3.4 and supplemented Supplemented (4) Hypomagnesemia: Plan: Normalized Plan Other significant medical problems are as follows: H/o PTSD, PIETRO- on zoloft, and welbutrin. - Seen by psychiatry-no indication for lithium. Continue sertraline-this can be increased to 150 mg at bedtime in future if anxiety persists. - Hold Wellbutrin until after the withdrawal window for seizure risk, then restart Wellbutrin 150 mg daily - Consider starting naltrexone 50 Mg daily for alcohol use disorder once LFT stabilizes Thrombocytopenia- ?From alcohol abuse. Monitor. No signs of bleeding DVT ppx- sc lovenox Dispo- Continue current management for alc withdrawal. Plan for alcohol rehab at discharge Admission and Anticipated Discharge Date Admission Date: December 13, 2022 Subjective 12/15/2022 The patient was seen and examined in telemetry unit He has been feeling much better and the withdrawal symptoms are improved Still has minimal tremor with outstretched hands No palpitation, shortness of breath 12/16/2022 The patient was seen and examined in telemetry unit He remains stable and almost free of any withdrawal symptoms No confusion and no tremors Waiting to go to inpatient rehab 12/17/2022 The patient was seen and examined in telemetry unit He has been stable without any withdrawal symptom Ready to be discharged to inpatient rehab facility Review of Systems Review of Systems: All systems reviewed and are unremarkable except as noted below Neurologic: Tremors involving the outstretched hands Physical Exam 2 Physical Exam: Lying in bed comfortably Constitutional: well developed, well nourished, + ill appearing and + obese Eyes: PERRL, conjunctivae normal, anicteric sclerae ENMT: external ear and nose normal, oropharynx normal Neck: trachea midline, no thyromegaly Respiratory: no respiratory distress Auscultation: lungs clear to auscultation bilaterally Cardiovascular: Rate/Rhythm: regular rate and regular rhythm; not tachycardic Heart Sounds: normal S1 and normal S2; no murmur Extremities: no edema Gastrointestinal (Abdomen): Inspection/Auscultation: normal bowel sounds; abdomen not distended Percussion/Palpation: abdomen soft; abdomen nontender Musculoskeletal: No acute arthritis involving any of the joint Neurologic: normal touch/pain/proprioception and moves all extremities; no focal motor deficits Alert awake and oriented x3 Psychiatric: A+Ox3, euthymic affect Lymphatic: no cervical or axillary lymphadenopathy Results & Data Results & Data Vital Signs (Past 12 Hours) Vital Signs Temp Pulse Pulse Resp BP Pulse Ox O2 Del Method 12/17/22 11:50 37.1 C 91 H 18 122/84 98 Room Air 12/17/22 12:17 69 12/17/22 07:30 36.3 C L 78 17 108/75 97 Room Air 12/17/22 03:38 37.1 C 64 18 122/75 96 Room Air Medications Administered Current Inpatient Medications Acetaminophen (Acetaminophen 325 Mg Tab) 650 mg PO Q4H PRN PRN Reason: Pain or Fever Stop: 01/12/23 04:33 Bupropion HCl (Bupropion Xl 150 Mg Tabcr) 150 mg PO QAM [facility] Stop: 01/12/23 08:59 Last Admin: 12/14/22 08:45 Dose: 150 mg Enoxaparin Sodium (Enoxaparin Inj 40 Mg/0.4 Ml Syr) 40 mg SQ Q24H [facility] Stop: 01/12/23 08:59 Last Admin: 12/17/22 08:45 Dose: 40 mg Folic Acid (Folic Acid 1 Mg Tab) 1 mg PO DAILY [facility] Stop: 01/13/23 08:59 Last Admin: 12/17/22 08:45 Dose: 1 mg Lorazepam (Lorazepam 2 Mg/1 Ml Vial) 3 mg IV ONCE PRN; Protocol PRN Reason: EtOH Withdrawal AWSS Score 10+ Lorazepam (Lorazepam 2 Mg/1 Ml Vial) 2 mg IV UD PRN; Protocol PRN Reason: EtOH Withdrawal AWSS Score 8,9 Stop: 01/12/23 04:33 Lorazepam (Lorazepam 2 Mg/1 Ml Vial) 1 mg IV UD PRN; Protocol PRN Reason: EtOH Withdrawal AWSS Score 6,7 Stop: 01/12/23 04:33 Last Admin: 12/15/22 19:38 Dose: 1 mg Magnesium Oxide (Magnesium Oxide 400 Mg Tab) 400 mg PO BID [facility] Stop: 01/12/23 20:59 Last Admin: 12/17/22 08:46 Dose: 400 mg Multivitamins/Minerals (Cerovite Adv Formula Tab) 1 tab PO QAM [facility] Stop: 01/12/23 08:59 Last Admin: 12/17/22 08:46 Dose: 1 tab Nitroglycerin (Nitroglycerin Sl 0.4 Mg/Tab Tab) 0.4 mg SL Q5M PRN PRN Reason: Chest Pain Stop: 01/12/23 04:33 Sertraline HCl (Sertraline Hcl 100 Mg Tablet) 100 mg PO HS [facility] Stop: 01/12/23 20:59 Last Admin: 12/16/22 20:34 Dose: 100 mg Thiamine HCl (Thiamine Hcl 100 Mg Tab) 100 mg PO DAILY [facility] Stop: 01/13/23 08:59 Last Admin: 12/17/22 08:46 Dose: 100 mg
--- NOTE | 2022-12-18 08:40 | Discharge Summary ---
Date of Service December 17, 2022 Admission HPI Per Admitting Provider DICTATED BY:Aurelio Brown MD DATE OF ADMISSION: 12/13/2022. CHIEF COMPLAINT: Alcohol withdrawal. HISTORY OF PRESENT ILLNESS: This is a 42-year-old male with past medical history significant PTSD, generalized anxiety disorder, questionable bipolar disorder, who presents with alcohol withdrawal. The patient says he is drinking 1 gallon of vodka since last 2 months. Prior to that, he used to drink one- fifth of vodka daily. He wants to get detoxed, that is the reason he came here. He says last drink was yesterday seems more than 10 hours ago. He states he was talking to people in the room who were not there, he was hallucinating. He received Ativan and somewhat drowsy, but able to answer the questions. Denies any headache. No dizziness, no blurred visions, no earache, no runny nose, no sore throat, no cough, no fevers. Appetite okay. No chest pain, no shortness of breath. Currently, no nausea or vomiting or abdominal pain. Normal bowel and bladder movements. Admission Exam Per Admitting Provider GENERAL: The patient is of moderate build, not in acute distress. VITAL SIGNS: Temperature 36.8, pulse 108, respiratory rate 17, blood pressure 109/64, oxygen 97% on room air. HEENT: Pupils equal, round and reactive to light. Oral mucosa somewhat dry. NECK: No JVD, no neck masses. CARDIOVASCULAR: S1 and S2 heard. Tachycardia. No murmurs. RESPIRATORY SYSTEM: Normal AP diameter. No accessory muscle use. No wheezing, no crackles. ABDOMEN: Soft, bowel sounds present, nontender, no distention. CENTRAL NERVOUS SYSTEM: Alert and oriented. Speech is clear. No facial droop. Obeys simple commands. Moves extremities. EXTREMITIES: No edema, no erythema. Principal Diagnosis Alcohol abuse, alcohol withdrawals symptoms-resolved, PTSD Discharge Exam Lying in bed comfortably Constitutional well developed, well nourished, + ill appearing and + obese Eyes PERRL, conjunctivae normal, anicteric sclerae ENMT external ear and nose normal, oropharynx normal Neck trachea midline, no thyromegaly Respiratory no respiratory distress Auscultation: lungs clear to auscultation bilaterally Cardiovascular Rate/Rhythm: regular rate and regular rhythm; not tachycardic Heart Sounds: normal S1 and normal S2; no murmur Extremities: no edema Gastrointestinal (Abdomen) Inspection/Auscultation: normal bowel sounds; abdomen not distended Percussion/Palpation: abdomen soft; abdomen nontender Neurologic normal touch/pain/proprioception and moves all extremities; no focal motor deficits Psychiatric A+Ox3, euthymic affect Lymphatic no cervical or axillary lymphadenopathy Discharge Data Allergies Allergy/AdvReac Type Severity Reaction Status Date / Time No Known Allergies Allergy Verified 12/13/22 00:44 Consultations 12/13/22 02:35 ED Decision to Admit Stat 12/13/22 13:58 Consult Psychiatry Routine Hospital Course (1) Alcohol withdrawal: 42 year old male with h/o PTSD, PIETRO, alcohol abuse who presented to the ED on 12/12 seeking alcohol detox Alcohol abuse with withdrawal -Alcohol level 200s. Has been drinking 1 gallon of vodka for past 2 months, last drink was on 12/12 - Continue alcohol withdrawal protocol with librium taper, ativan prn, MV, folate, thiamine - Pt seeking detox- CM for alcohol rehab -Clinically much better and has minimal withdrawal symptoms as of today -Will ask for PT and OT evaluation -Waiting to go to alcohol rehab likely as an inpatient -We will get PT and OT evaluation and the patient is waiting to go to rehab as an inpatient -Remains medically stable without any significant symptoms of withdrawal Ready to be discharged to inpatient facility for alcohol rehab Remains medically stable without any withdrawal symptoms (2) Alcohol use disorder: As above Will need inpatient rehab (3) Hypokalemia: Electrolyte abnormalities Has significant hypokalemia, hypomagnesemia and hypophosphatemia Will be replaced both via IV and oral route We will monitor electrolytes-potassium remains low at 3.4 and supplemented Supplemented (4) Hypomagnesemia: Normalized Plan Other significant medical problems are as follows: H/o PTSD, PIETRO- on zoloft, and welbutrin. - Seen by psychiatry-no indication for lithium. Continue sertraline-this can be increased to 150 mg at bedtime in future if anxiety persists. - Hold Wellbutrin until after the withdrawal window for seizure risk, then restart Wellbutrin 150 mg daily - Consider starting naltrexone 50 Mg daily for alcohol use disorder once LFT stabilizes Thrombocytopenia- ?From alcohol abuse. Monitor. No signs of bleeding DVT ppx- sc lovenox Dispo- Continue current management for alc withdrawal. Plan for alcohol rehab at discharge Total Time Total Time Spent Total Time Spent (In Minutes): 40 minutes Discharge Plan Discharge Items Patient Disposition: Transfer Inpatient Rehab Fac Reason For Visit: ALCOHOL WITHDRAWAL Discharge Diagnosis: Alcohol abuse, alcohol withdrawals symptoms-resolved, PTSD Condition on Discharge: Good Activity: Resume your previous activity Non-emergency contact: Primary Care Provider Call non-emergency contact if: you have any medication questions and your symptoms worsen Follow-up/Referrals: Rena Uriarte PA-C [Primary Care Provider] - (Please make an appointment with your PCP within 7 days following discharge from the facility) Diet: Regular Addtl Attending Provider Instructions: Please take precautions to avoid falls Take your medications as advised Strongly advised to stop using alcohol Your sertraline can be increased to 150 mg at night if anxiety persist Seroquel has been started 100 mg at at bedtime and that can be increased up to 300 mg at bedtime Do not restart lithium Naltrexone 50 mg daily can be started as per inpatient rehab criteria Pending Studies at Discharge: No Stand-Alone Forms: My [facility] Skilled Items Patient informed of condition?: Yes DNR: No Discharge Level of Care: Acute rehab Communicable Disease: No Discharge Prognosis: Stable Lines: None Urinary Catheter: No Medications and DC Order Prescriptions: New thiamine HCl (vitamin B1) 100 mg Tablet 100 mg PO DAILY 30 Days Qty: 30 0RF folic acid 1 mg Tablet 1 mg PO DAILY 30 Days Qty: 30 0RF Cerovite Senior 0.4 mg-300 mcg- 250 mcg Tablet 1 tab PO QAM 30 Days Qty: 30 0RF Continued sertraline 100 mg Tablet 100 mg PO HS 30 Days Qty: 30 0RF bupropion HCl 150 mg Tablet Extended Release 24 Hr 150 mg PO QAM 30 Days Qty: 30 0RF Changed quetiapine 100 mg tablet 100 mg PO HS Qty: 30 0RF Discontinued naltrexone 50 mg tablet 50 mg PO DAILY PRN (Reason: NEEDED) lithium carbonate 300 mg tablet extended release 300 mg PO BID Discharge Orders: Discharge Order (Routine); Ordered 12/17/22 Ordered By: Patricia Kraus Admission Data Admit Date/Time: 12/13/22 03:16 Attending Provider: Nayana,Manabendra Admit Provider: Aurelio Brown Primary Care Provider: Rena Uriarte Other Providers: Aurelio Brown ; Anamika Vargas ; Shari Reeder ; Vj Serrano ; Ronny France Other Interventions: Discharge Summary Assessment (RN) Last Done: 12/17/22 15:34
== END 2022-12-17 16:03 | DRG 897 ==
LOC: ED 00:08 → SUATTDRO 03:16 → 2E 03:16